=== PATIENT | male | born 1940 | race Caucasian/White ===

== ENCOUNTER → 2017-08-20 10:21 | Outpatient (CLI) | payer MEDICARE, SELFPAY ==
[2017-08-20 14:33] LABS: Protein, Urine (Random) 30.8 mg/dL (<11.9); Protein:Creat Ratio 285 mg/g CRE (0-200)
== END ==
PROVIDERS: Family Provider Family Medicine Geriatric Medicine; PCP Family Medicine Geriatric Medicine; Visit Provider Internal Medicine Nephrology
DX: E11.9 Type 2 diabetes mellitus without complications (principal)
CPT/HCPCS: 82570; 84156

== ENCOUNTER → 2017-10-22 11:50 | Outpatient (CLI) | payer MEDICARE, SELFPAY ==
[2017-10-22 13:13] LABS: Absolute Neutrophil Count 7.2 X10^3/uL (2.0-7.7); Basophil# 0.02 X10^3/uL; Basophil% 0.2 % (0-1); Eosinophil# 0.03 X10^3/uL; Eosinophils% 0.3 % (0-5); Hematocrit 49.8 % (40-54); Hemoglobin 16.4 g/dl (13.0-16.5); Lymphocyte % 12.2 % (19-41); Mean Corp Hgb Conc 32.9 g/gl (32-36); Mean Corpuscular Hgb 32.7 pg (27.0-32.0); Mean Corpuscular Volume 99.4 fL (80-94); Mean Platelet Vol. 11.2 fl (6.2-12.0); Monocyte# 0.66 X10^3/uL; Monocyte% 7.3 % (0-10); Neutrophil # 7.16 X10^3/uL (2.7-7.7); Neutrophil % 79.8 % (47-70); Platelet Count 141 K/mm3 (150-450); RBC Distribution Width CV 16.3 % (11.6-14.6); RBC Distribution Width SD 58.4 fl (35.1-43.9); Red Blood Count 5.01 M/mm3 (4.6-6.2)
[2017-10-22 13:14] LABS: POSITIVE COUNT NO; POSITIVE DIFFERENTIAL NO; POSITIVE MORPHOLOGY NO
[2017-10-22 13:46] LABS: Vitamin D,25 Hydroxy 42.9 ng/mL (29.95-100.01)
[2017-10-22 13:53] LABS: ALB/GLOB Ratio 0.8 RATIO (0.9-2.4); AST(SGOT) 25 U/L (15-37); Alanine Aminotransfer ALT/SGPT 29 U/L (16-61); Albumin, Serum 3.4 g/dL (3.2-5.0); Alkaline Phosphatase 102 U/L (45-117); Anion Gap 9 (5-15); BUN 26 mg/dL (7-18); BUN/Creat Ratio 17.1 RATIO (10-20); Calcium,Total 8.9 mg/dL (8.5-10.1); Chloride 94 mmol/L (98-107); Creatinine, Serum 1.52 mg/dL (0.70-1.30); EST Glomerular Filtration Rate 48 mL/min (>60); Est Glom Filt Rate - Afr Amer 57 mL/min (>60); Glucose 199 mg/dL (74-106); Potassium 4.7 mmol/L (3.5-5.1); Protein, Total 7.4 g/dL (6.4-8.2); Sodium Level 133 mmol/L (136-145)
== END ==
PROVIDERS: Family Provider Family Medicine Geriatric Medicine; PCP Family Medicine Geriatric Medicine; Visit Provider Family Medicine Geriatric Medicine
DX: E11.9 Type 2 diabetes mellitus without complications (principal); I10 Essential (primary) hypertension; E55.9 Vitamin D deficiency, unspecified; E23.6 Other disorders of pituitary gland
CPT/HCPCS: 36415; 80053; 82306; 84403; 84443; 85025

== ENCOUNTER → 2018-01-28 11:12 | Outpatient (CLI) | payer MEDICARE, SELFPAY ==
[2018-01-28 12:32] LABS: Absolute Lymphocyte Count 1.13 X10^3/ul (0.83-4.51); Basophil# 0.01 X10^3/uL; Basophil% 0.2 % (0-1); Eosinophil# 0.03 X10^3/uL; Eosinophils% 0.5 % (0-5); Hematocrit 48.1 % (40-54); Lymphocyte # 1.13 X10^3/ul (4.0); Mean Corp Hgb Conc 33.3 g/gl (32-36); Mean Corpuscular Hgb 33.4 pg (27.0-32.0); Mean Corpuscular Volume 100.4 fL (80-94); Mean Platelet Vol. 10.7 fl (6.2-12.0); Monocyte# 0.43 X10^3/uL; Monocyte% 6.5 % (0-10); Neutrophil # 5.04 X10^3/uL (2.7-7.7); Neutrophil % 75.6 % (47-70); Platelet Count 95 K/mm3 (150-450); RBC Distribution Width CV 14.1 % (11.6-14.6); RBC Distribution Width SD 51.9 fl (35.1-43.9); Red Blood Count 4.79 M/mm3 (4.6-6.2); White Blood Count 6.7 K/mm3 (4.4-11.0)
[2018-01-28 12:36] LABS: POSITIVE COUNT NO; POSITIVE DIFFERENTIAL NO; POSITIVE MORPHOLOGY NO
[2018-01-28 12:54] LABS: Vitamin D,25 Hydroxy 27.9 ng/mL (29.95-100.01)
[2018-01-28 13:17] LABS: ALB/GLOB Ratio 0.8 RATIO (0.9-2.4); AST(SGOT) 24 U/L (15-37); Alanine Aminotransfer ALT/SGPT 25 U/L (16-61); Albumin, Serum 3.3 g/dL (3.2-5.0); Alkaline Phosphatase 104 U/L (45-117); Anion Gap 9 (5-15); BUN 27 mg/dL (7-18); Calcium,Total 8.8 mg/dL (8.5-10.1); Chloride 95 mmol/L (98-107); Creatinine, Serum 1.42 mg/dL (0.70-1.30); EST Glomerular Filtration Rate 51 mL/min (>60); Est Glom Filt Rate - Afr Amer 62 mL/min (>60); Globulin 4.3 g/dL (2.2-4.2); Glucose 246 mg/dL (74-106); Potassium 4.5 mmol/L (3.5-5.1); Protein, Total 7.6 g/dL (6.4-8.2); Sodium Level 131 mmol/L (136-145)
== END ==
PROVIDERS: Family Provider Family Medicine Geriatric Medicine; PCP Family Medicine Geriatric Medicine; Visit Provider Family Medicine Geriatric Medicine
DX: E11.9 Type 2 diabetes mellitus without complications (principal); E55.9 Vitamin D deficiency, unspecified; I10 Essential (primary) hypertension; E23.6 Other disorders of pituitary gland
CPT/HCPCS: 36415; 80053; 82306; 84403; 84443; 85025

== ENCOUNTER → 2018-04-13 10:57 | Outpatient (CLI) | payer MEDICARE, SELFPAY ==
[2018-04-13 12:47] LABS: Albumin, Serum 3.5 g/dL (3.2-5.0); BUN 23 mg/dL (7-18); BUN/Creat Ratio 15.2 RATIO (10-20); Calcium,Total 8.9 mg/dL (8.5-10.1); Chloride 94 mmol/L (98-107); Creatinine, Serum 1.51 mg/dL (0.70-1.30); EST Glomerular Filtration Rate 48 mL/min (>60); Est Glom Filt Rate - Afr Amer 58 mL/min (>60); Glucose 229 mg/dL (74-106); Phosphorus 2.3 mg/dL (2.5-4.9); Potassium 4.4 mmol/L (3.5-5.1); Sodium Level 131 mmol/L (136-145)
== END ==
PROVIDERS: Family Provider Family Medicine Geriatric Medicine; PCP Family Medicine Geriatric Medicine; Visit Provider Internal Medicine Nephrology
DX: N18.3 Chronic kidney disease, stage 3 (moderate) (principal)
CPT/HCPCS: 36415; 80069

== ENCOUNTER → 2018-05-12 12:02 | Outpatient (CLI) | payer MEDICARE, SELFPAY ==
[2018-05-12 13:11] LABS: Absolute Neutrophil Count 5.4 X10^3/uL (2.0-7.7); Basophil# 0.02 X10^3/uL; Basophil% 0.3 % (0-1); Eosinophil# 0.01 X10^3/uL; Eosinophils% 0.1 % (0-5); Hematocrit 47.4 % (40-54); Hemoglobin 15.6 g/dl (13.0-16.5); Mean Corp Hgb Conc 32.9 g/gl (32-36); Mean Corpuscular Hgb 33.2 pg (27.0-32.0); Mean Corpuscular Volume 100.9 fL (80-94); Mean Platelet Vol. 10.6 fl (6.2-12.0); Monocyte# 0.45 X10^3/uL; Monocyte% 6.2 % (0-10); Neutrophil # 5.43 X10^3/uL (2.7-7.7); Neutrophil % 75.3 % (47-70); Platelet Count 99 K/mm3 (150-450); RBC Distribution Width CV 14.2 % (11.6-14.6); White Blood Count 7.2 K/mm3 (4.4-11.0)
[2018-05-12 13:14] LABS: POSITIVE COUNT NO; POSITIVE DIFFERENTIAL NO; POSITIVE MORPHOLOGY NO
[2018-05-12 13:33] LABS: ALB/GLOB Ratio 0.9 RATIO (0.9-2.4); AST(SGOT) 20 U/L (15-37); Alanine Aminotransfer ALT/SGPT 25 U/L (16-61); Albumin, Serum 3.5 g/dL (3.2-5.0); Alkaline Phosphatase 100 U/L (45-117); Anion Gap 8 (5-15); BUN 21 mg/dL (7-18); Calcium,Total 8.7 mg/dL (8.5-10.1); Chloride 97 mmol/L (98-107); EST Glomerular Filtration Rate 52 mL/min (>60); Est Glom Filt Rate - Afr Amer 63 mL/min (>60); Globulin 3.9 g/dL (2.2-4.2); Glucose 203 mg/dL (74-106); Potassium 4.3 mmol/L (3.5-5.1); Protein, Total 7.4 g/dL (6.4-8.2); Sodium Level 135 mmol/L (136-145); Thyroid Stim Hormone (TSH) 2.55 uIU/mL (0.358-3.74)
[2018-05-12 13:36] LABS: Vitamin D,25 Hydroxy 35.3 ng/mL (29.95-100.01)
== END ==
PROVIDERS: Family Provider Family Medicine Geriatric Medicine; PCP Family Medicine Geriatric Medicine; Visit Provider Family Medicine Geriatric Medicine
DX: E11.9 Type 2 diabetes mellitus without complications (principal); E55.9 Vitamin D deficiency, unspecified
CPT/HCPCS: 36415; 80053; 82306; 84403; 84443; 85025

== ENCOUNTER → 2018-06-17 14:14 | Outpatient (CLI) | payer MEDICARE, SELFPAY ==
[2018-06-17 16:10] LABS: Protein, Urine (Random) 29.2 mg/dL (<11.9); Protein:Creat Ratio 265 mg/g CRE (0-200)
--- OUTSIDE RECORDS SUMMARY | 2018-08-03 19:06 | XMS RPT_ITS ---
:1940 Author Organization OHIP Care Team Providers Name Role Phone Chicho, Lane [facility] Unavailable Kasandra Elizabeth Attending Unavailable Chicho, Lane [facility] Unavailable Kasandra Elizabeth Attending Unavailable Chicho, Lane Chi Attending Unavailable Chicho, Lane [facility] Unavailable Chicho, Lane Chi Attending Unavailable Chicho, Lane [facility] Unavailable Chicho, Lane [facility] Unavailable Kasandra Elizabeth Attending Unavailable Chicho, Lane Chi Attending Unavailable Chicho, Lane [facility] Unavailable Glenn Kasandra Attending Unavailable Chicho, Lane [facility] Unavailable PROBLEMS PROBLEMS DATE TYPE CONDITION / CODE ATTENDING STATUS SOURCE 01/28/2018 Unknown 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 mg/dL Normal UR CREAT 110.00 LAB L501.1930 <11.9 mg/dL High 29.2 PROTEIN,UR.R AN. LAB L501.1940 0-200 mg/g CRE High PROT:CRE 265 RATIO Performed By: #### L501.0900 #### [facility] [address] [place], [address] CBC W/DIFF, AUTOMATED Collected: 05/12/2018 Status: F Source: [place] 12:04 PM [facility] REPOSITORY TYPE CODE TESTS RESULT OUT OF RANGE REFERENCE UNITS LAB L100.1000 4.4-11.0 K/mm3 Normal WBC 7.2 LAB L100.1200 4.6-6.2 M/mm3 Normal RBC 4.70 LAB L100.1300 13.0-16.5 g/dl Normal HGB 15.6 LAB L100.1400 40-54 % Normal HCT 47.4 LAB L100.1500 80-94 fL High MCV 100.9 LAB L100.1600 27.0-32.0 pg High MCH 33.2 LAB L100.1700 32-36 g/gl Normal MCHC 32.9 LAB L100.1810 11.6-14.6 % Normal RDW CV 14.2 LAB L100.1820 35.1-43.9 fl High RDW SD 52.0 LAB L100.1900 150-450 K/mm3 Low PLT 99 LAB L100.2000 6.2-12.0 fl Normal MPV 10.6 LAB L100.2100 47-70 % High NEUT% 75.3 LAB L100.2200 19-41 % Low LY% 18.0 LAB L100.2300 0-10 % Normal MONO% 6.2 LAB L100.2400 0-5 % Normal EO% 0.1 LAB L100.2500 0-1 % Normal BASO% 0.3 LAB L100.2550 0.0-0.9 % Normal IM GRAN % 0.100 Result Comment: IG% - Immature Granulocytes (promyelocytes, myelocytes and metamyelocytes) > 1% indicates that a LEFT SHIFT is Present. LAB L100.2620 2.0-7.7 X10 3/uL Normal Absolute Neut 5.4 LAB L100.2720 0.83-4.51 X10 3/ul Normal Absolute Lymph 1.30 Performed By: #### L100.0100 #### [facility] [address] [place], [address] COMPREHENSIVE METABOLIC Collected: 05/12/2018 Status: F Source: [place] [facility] 12:04 PM [facility] REPOSITORY TYPE CODE TESTS RESULT OUT OF RANGE REFERENCE UNITS LAB L501.0100 74-106 mg/dL High GLU 203 Result Comment: Glucose result greater than or equal to 200 mg/dL suggests DIABETES MELLITUS per A.D.A. criteria. Please note revised GLUCOSE reference range effective 2017. LAB L501.1000 7-18 mg/dL High BUN 21 LAB L501.1100 0.70-1.30 mg/dL High CREAT,SERUM 1.40 Result Comment: The validity of the calculated GFR AND GFRAA in patients over 70 years has not been determined. Clinical correlation is essential. LAB L501.1110 >60 mL/min Low EST GFR 52 Result Comment: Non- GFR Calc LAB L501.1115 >60 mL/min Normal EST GFR - AA 63 Result Comment: GFR Calc LAB L501.1300 10-20 RATIO Normal BUN/CRE 15.0 LAB L501.1500 6.4-8.2 g/dL T Normal PROT 7.4 LAB L501.1800 3.2-5.0 g/dL Normal ALB 3.5 LAB L501.1950 2.2-4.2 g/dL Normal GLOB 3.9 LAB L501.2000 0.9-2.4 RATIO Normal A/G 0.9 LAB L501.2200 8.5-10.1 mg/dL CA Normal 8.7 LAB L501.4100 15-37 U/L Normal AST 20 LAB L501.4305 45-117 U/L Normal ALK P 100 LAB L501.4405 16-61 U/L Normal ALT 25 LAB L501.4600 0.20-1.00 mg/dL T Normal BILI 0.70 LAB L501.5300 136-145 mmol/L Low NA 135 LAB L501.5600 3.5-5.1 mmol/L K Normal 4.3 LAB L501.5900 98-107 mmol/L Low CL 97 LAB L501.6100 21.0-32.0 mmol/L Normal CO2 30.0 LAB L501.6200 5-15 Normal GAP 8 Performed By: #### L500.4050, L501.9520 #### [facility] [address] [place], [address] THYROID STIM HORMONE Collected: 05/12/2018 Status: F Source: MOBILE (TSH) 12:04 PM [facility] REPOSITORY TYPE CODE TESTS RESULT OUT OF RANGE REFERENCE UNITS LAB L501.9520 0.358-3.74 uIU/mL Normal TSH 2.55 Performed By: #### L500.4050, L501.9520 #### [facility] [address] [place], [address] VITAMIN D,25 HYDROXY Collected: 05/12/2018 Status: F Source: [place] 12:04 [facility]POSITORY TYPE CODE TESTS RESULT OUT OF RANGE REFERENCE UNITS LAB L506.1000 29.95-100.01 ng/mL Normal Vitamin D 35.3 25-OH Result Comment: Vitamin D 25(OH) Status Range Deficiency <20 ng/mL (50nmol/L) Insuffciency 20 - 30 ng/mL (50 - 75 nmol/L) Sufficiency 30 - 100 ng/mL (75 - 250 nmol/L) Toxicity >100 ng/mL (>250 nmol/L) Performed By: #### L506.1000, L509.3000 #### [facility] [address] [place], [place], [address] TESTOSTERONE, SERUM TOTAL Collected: 05/12/2018 Status: F Source: [place] 12:04 PM [facility] REPOSITORY TYPE CODE TESTS RESULT OUT OF REFERENCE UNITS RANGE LAB L509.3000 ng/dL Testosterone Normal 886.53 Result Comment: NORMAL REFERENCE RANGES MALE AGE <50 123.06 - 813.86 ng/dL MALE AGE >50 89.98 - 780.10 ng/dL FEMALE PREMENOPAUSE AGE 21 - 60 9.01 - 47.94 ng/dL FEMALE POSTMENOPAUSE AGE 45 - 89 <7.00 - 45.62 ng/dL REFERENCE RANGE AND METHODOLOGY CHANGED 06/25/2017 Performed By: #### L506.1000, L509.3000 #### [facility] [address] [place], [address] RENAL PROFILE Collected: 04/13/2018 Status: F Source: [place] 10:58 AM [facility] REPOSITORY TYPE CODE TESTS RESULT OUT OF RANGE REFERENCE UNITS LAB L501.0100 74-106 mg/dL High GLU 229 Result Comment: Glucose result greater than or equal to 200 mg/dL suggests DIABETES MELLITUS per A.D.A. criteria. Please note revised GLUCOSE reference range effective 2017. LAB L501.1000 7-18 mg/dL High BUN 23 LAB L501.1100 0.70-1.30 mg/dL High CREAT,SERUM 1.51 Result Comment: The validity of the calculated GFR AND GFRAA in patients over 70 years has not been determined. Clinical correlation is essential. LAB L501.1110 >60 mL/min Low EST GFR 48 Result Comment: Non- GFR Calc LAB L501.1115 >60 mL/min Low EST GFR - AA 58 Result Comment: GFR Calc LAB L501.1300 10-20 RATIO Normal BUN/CRE 15.2 LAB L501.1800 3.2-5.0 g/dL Normal ALB 3.5 LAB L501.2200 8.5-10.1 mg/dL CA Normal 8.9 LAB L501.2300 2.5-4.9 mg/dL Low PHOS 2.3 LAB L501.5300 136-145 mmol/L Low NA 131 LAB L501.5600 3.5-5.1 mmol/L K Normal 4.4 LAB L501.5900 98-107 mmol/L Low CL 94 LAB L501.6100 21.0-32.0 mmol/L Normal CO2 29.0 Performed By: #### L500.3600 #### [facility] [address] [place], [address] CBC W/DIFF, AUTOMATED Collected: 01/28/2018 Status: F Source: [place] 11:14 AM [facility] REPOSITORY TYPE CODE TESTS RESULT OUT OF RANGE REFERENCE UNITS LAB L100.1000 4.4-11.0 K/mm3 Normal WBC 6.7 LAB L100.1200 4.6-6.2 M/mm3 Normal RBC 4.79 LAB L100.1300 13.0-16.5 g/dl Normal HGB 16.0 LAB L100.1400 40-54 % Normal HCT 48.1 LAB L100.1500 80-94 fL High MCV 100.4 LAB L100.1600 27.0-32.0 pg High MCH 33.4 LAB L100.1700 32-36 g/gl Normal MCHC 33.3 LAB L100.1810 11.6-14.6 % Normal RDW CV 14.1 LAB L100.1820 35.1-43.9 fl High RDW SD 51.9 LAB L100.1900 150-450 K/mm3 Low PLT 95 LAB L100.2000 6.2-12.0 fl Normal MPV 10.7 LAB L100.2100 47-70 % High NEUT% 75.6 LAB L100.2200 19-41 % Low LY% 17.0 LAB L100.2300 0-10 % Normal MONO% 6.5 LAB L100.2400 0-5 % Normal EO% 0.5 LAB L100.2500 0-1 % Normal BASO% 0.2 LAB L100.2550 0.0-0.9 % Normal IM GRAN % 0.200 Result Comment: IG% - Immature Granulocytes (promyelocytes, myelocytes and metamyelocytes) > 1% indicates that a LEFT SHIFT is Present. LAB L100.2620 2.0-7.7 X10 3/uL Normal Absolute Neut 5.0 LAB L100.2720 0.83-4.51 X10 3/ul Normal Absolute Lymph 1.13 Performed By: #### L100.0100 #### [facility] [address] [place], [address] VITAMIN D,25 HYDROXY Collected: 01/28/2018 Status: F Source: [place] 11:14 AM [facility] REPOSITORY TYPE CODE TESTS RESULT OUT OF REFERENCE UNITS RANGE LAB L506.1000 29.95-100.01 ng/mL Low Vitamin D 27.9 25-OH Result Comment: Vitamin D 25(OH) Status Range Deficiency <20 ng/mL (50nmol/L) Insuffciency 20 - 30 ng/mL (50 - 75 nmol/L) Sufficiency 30 - 100 ng/mL (75 - 250 nmol/L) Toxicity >100 ng/mL (>250 nmol/L) Performed By: #### L506.1000, L509.3000 #### [facility] [address] [place], [address] TESTOSTERONE, SERUM TOTAL Collected: 01/28/2018 Status: F Source: MOBILE 11:14 AM [facility] REPOSITORY TYPE CODE TESTS RESULT OUT OF REFERENCE UNITS RANGE LAB L509.3000 ng/dL Testosterone Normal 656.26 Result Comment: NORMAL REFERENCE RANGES MALE AGE <50 123.06 - 813.86 ng/dL MALE AGE >50 89.98 - 780.10 ng/dL FEMALE PREMENOPAUSE AGE 21 - 60 9.01 - 47.94 ng/dL FEMALE POSTMENOPAUSE AGE 45 - 89 <7.00 - 45.62 ng/dL REFERENCE RANGE AND METHODOLOGY CHANGED 06/25/2017 Performed By: #### L506.1000, L509.3000 #### [facility] [address] [place], [address] COMPREHENSIVE METABOLIC Collected: 01/28/2018 Status: F Source: [facility] 11:14 AM [facility] REPOSITORY TYPE CODE TESTS RESULT OUT OF RANGE REFERENCE UNITS LAB L501.0100 74-106 mg/dL High GLU 246 Result Comment: Glucose result greater than or equal to 200 mg/dL suggests DIABETES MELLITUS per A.D.A. criteria. Please note revised GLUCOSE reference range effective 2017. LAB L501.1000 7-18 mg/dL High BUN 27 LAB L501.1100 0.70-1.30 mg/dL High CREAT,SERUM 1.42 Result Comment: The validity of the calculated GFR AND GFRAA in patients over 70 years has not been determined. Clinical correlation is essential. LAB L501.1110 >60 mL/min Low EST GFR 51 Result Comment: Non- GFR Calc LAB L501.1115 >60 mL/min Normal EST GFR - AA 62 Result Comment: GFR Calc LAB L501.1300 10-20 RATIO Normal BUN/CRE 19.0 LAB L501.1500 6.4-8.2 g/dL T Normal PROT 7.6 LAB L501.1800 3.2-5.0 g/dL Normal ALB 3.3 LAB L501.1950 2.2-4.2 g/dL High GLOB 4.3 LAB L501.2000 0.9-2.4 RATIO Low A/G 0.8 LAB L501.2200 8.5-10.1 mg/dL CA Normal 8.8 LAB L501.4100 15-37 U/L Normal AST 24 Result Comment: Moderate Hemolysis, Result may be falsely increased. LAB L501.4305 45-117 U/L Normal ALK P 104 LAB L501.4405 16-61 U/L Normal ALT 25 LAB L501.4600 0.20-1.00 mg/dL Normal T BILI 0.70 LAB L501.5300 136-145 mmol/L Low NA 131 LAB L501.5600 3.5-5.1 mmol/L Normal K 4.5 Result Comment: Moderate Hemolysis, Result may be falsely increased. LAB L501.5900 98-107 mmol/L Low CL 95 LAB L501.6100 21.0-32.0 mmol/L Normal CO2 27.0 LAB L501.6200 5-15 Normal GAP 9 Performed By: #### L500.4050, L501.9520 #### [facility] [address] [place], [place], [address] THYROID STIM HORMONE Collected: 01/28/2018 Status: F Source: [place] (TSH) 11:14 AM [facility] REPOSITORY TYPE CODE TESTS RESULT OUT OF RANGE REFERENCE UNITS LAB L501.9520 0.358-3.74 uIU/mL Normal TSH 2.20 Performed By: #### L500.4050, L501.9520 #### [facility] [address] [place], [address] CBC W/DIFF, AUTOMATED Collected: 10/22/2017 Status: F Source: [place] 11:59 AM [facility] REPOSITORY TYPE CODE TESTS RESULT OUT OF RANGE REFERENCE UNITS LAB L100.1000 4.4-11.0 K/mm3 Normal WBC 9.0 LAB L100.1200 4.6-6.2 M/mm3 Normal RBC 5.01 LAB L100.1300 13.0-16.5 g/dl Normal HGB 16.4 LAB L100.1400 40-54 % Normal HCT 49.8 LAB L100.1500 80-94 fL High MCV 99.4 LAB L100.1600 27.0-32.0 pg High MCH 32.7 LAB L100.1700 32-36 g/gl Normal MCHC 32.9 LAB L100.1810 11.6-14.6 % High RDW CV 16.3 LAB L100.1820 35.1-43.9 fl High RDW SD 58.4 LAB L100.1900 150-450 K/mm3 Low PLT 141 LAB L100.2000 6.2-12.0 fl Normal MPV 11.2 LAB L100.2100 47-70 % High NEUT% 79.8 LAB L100.2200 19-41 % Low LY% 12.2 LAB L100.2300 0-10 % Normal MONO% 7.3 LAB L100.2400 0-5 % Normal EO% 0.3 LAB L100.2500 0-1 % Normal BASO% 0.2 LAB L100.2550 0.0-0.9 % Normal IM GRAN % 0.200 Result Comment: IG% - Immature Granulocytes (promyelocytes, myelocytes and metamyelocytes) > 1% indicates that a LEFT SHIFT is Present. LAB L100.2620 2.0-7.7 X10 3/uL Normal Absolute Neut 7.2 LAB L100.2720 0.83-4.51 X10 3/ul Normal Absolute Lymph 1.10 Performed By: #### L100.0100 #### [facility] [address] [facility] [place], [address] VITAMIN D,25 HYDROXY Collected: 10/22/2017 Status: F Source: [place] 11:59 AM [facility] REPOSITORY TYPE CODE TESTS RESULT OUT OF RANGE REFERENCE UNITS LAB L506.1000 29.95-100.01 ng/mL Normal Vitamin D 42.9 25-OH Result Comment: Vitamin D 25(OH) Status Range Deficiency <20 ng/mL (50nmol/L) Insuffciency 20 - 30 ng/mL (50 - 75 nmol/L) Sufficiency 30 - 100 ng/mL (75 - 250 nmol/L) Toxicity >100 ng/mL (>250 nmol/L) Performed By: #### L506.1000, L509.3000 #### [facility] [address] [place], [address] TESTOSTERONE, SERUM TOTAL Collected: 10/22/2017 Status: F Source: MOBILE 11:59 AM [facility] REPOSITORY TYPE CODE TESTS RESULT OUT OF REFERENCE UNITS RANGE LAB L509.3000 ng/dL Testosterone Normal 808.43 Result Comment: NORMAL REFERENCE RANGES MALE AGE <50 123.06 - 813.86 ng/dL MALE AGE >50 89.98 - 780.10 ng/dL FEMALE PREMENOPAUSE AGE 21 - 60 9.01 - 47.94 ng/dL FEMALE POSTMENOPAUSE AGE 45 - 89 <7.00 - 45.62 ng/dL REFERENCE RANGE AND METHODOLOGY CHANGED 06/25/2017 Performed By: #### L506.1000, L509.3000 #### [facility] [address] [place], [address] COMPREHENSIVE METABOLIC Collected: 10/22/2017 Status: F Source: [facility] 11:59 AM [facility] REPOSITORY TYPE CODE TESTS RESULT OUT OF RANGE REFERENCE UNITS LAB L501.0100 74-106 mg/dL High GLU 199 Result Comment: Fasting Glucose result greater than or equal to 126 mg/dL suggests DIABETES MELLITUS per A.D.A. criteria. Please note revised GLUCOSE reference range effective 2017. LAB L501.1000 7-18 mg/dL High BUN 26 LAB L501.1100 0.70-1.30 mg/dL High CREAT,SERUM 1.52 Result Comment: The validity of the calculated GFR AND GFRAA in patients over 70 years has not been determined. Clinical correlation is essential. LAB L501.1110 >60 mL/min Low EST GFR 48 Result Comment: Non- GFR Calc LAB L501.1115 >60 mL/min Low EST GFR - AA 57 Result Comment: GFR Calc LAB L501.1300 10-20 RATIO Normal BUN/CRE 17.1 LAB L501.1500 6.4-8.2 g/dL T Normal PROT 7.4 LAB L501.1800 3.2-5.0 g/dL Normal ALB 3.4 LAB L501.1950 2.2-4.2 g/dL Normal GLOB 4.0 LAB L501.2000 0.9-2.4 RATIO Low A/G 0.8 LAB L501.2200 8.5-10.1 mg/dL CA Normal 8.9 LAB L501.4100 15-37 U/L Normal AST 25 Result Comment: Slight Hemolysis, Result may be falsely increased. LAB L501.4305 45-117 U/L Normal ALK P 102 LAB L501.4405 16-61 U/L Normal ALT 29 LAB L501.4600 0.20-1.00 mg/dL Normal T BILI 0.60 LAB L501.5300 136-145 mmol/L Low NA 133 LAB L501.5600 3.5-5.1 mmol/L Normal K 4.7 Result Comment: Slight Hemolysis, Result may be falsely increased. LAB L501.5900 98-107 mmol/L Low CL 94 LAB L501.6100 21.0-32.0 mmol/L Normal CO2 30.0 LAB L501.6200 5-15 Normal GAP 9 Performed By: #### L500.4050, L501.9520 #### [facility] [address] [place], [place], [address] THYROID STIM HORMONE Collected: 10/22/2017 Status: F Source: [place] (TSH) 11:59 AM [facility] REPOSITORY TYPE CODE TESTS RESULT OUT OF RANGE REFERENCE UNITS LAB L501.9520 0.358-3.74 uIU/mL Normal TSH 3.70 Performed By: #### L500.4050, L501.9520 #### [facility] [address] [place], [place], [address] PROTEIN+CREATININE Collected: Status: F Source: [place] RATIO,URINE 08/20/2017 10:24 AM [facility] REPOSITORY TYPE CODE TESTS RESULT OUT OF RANGE REFERENCE UNITS LAB L501.1200 NO RANGE EST. mg/dL Normal UR CREAT 108.00 LAB L501.1930 <11.9 mg/dL High 30.8 PROTEIN,UR.R AN. LAB L501.1940 0-200 mg/g CRE High PROT:CRE 285 RATIO Performed By: #### L501.0900 #### [facility] [address] [place], [place], [address] ALLERGIES ALLERGIES No Allergies Records FoundENCOUNTERS ENCOUNTERS ADMIT/DISCHARGE ACCOUNT ADMITTING ENCOUNTER LOCATION SOURCE NUMBER CLASS 06/17/2018 [id number] Ambulatory [place] 8 [facility] ing:POLAB3 Repository 05/12/2018 [id number] Ambulatory [place] 9 [facility] ing:POLAB3 Repository 04/13/2018 [id number] Ambulatory [place] 9 [facility] ing:POLAB3 Repository 01/28/2018 [id number] Ambulatory [place] 8 [facility] ing:POLAB3 Repository 10/22/2017 [id number] Ambulatory [place] 8 [facility] ing:POLAB3 Repository 08/20/2017 [id number] Ambulatory [place] 1 [facility] ing:POLAB3 Repository 08/13/2017 [id number] Ambulatory [place] 3 [facility] ing:LAB.FUTUR Repository E PAYERS PAYERS ENCOUNTER GUARANTOR PAYER SUBSCRIBER SOURCE 06/17/2018 Evelyn Jang Primary Insurance:AETNA Evelyn L [place] [id number] MCRPolicy Number: [place]D[facility] [id number] [address]Xsg: Date:4631-94-01HU BOX Repository [id number] [place] [address] () [phone]: 06/17/2018 Secondary NOT GIVENUNK [place] Insurance:SELF PAY [facility] INSURANCEPolicy Number: Hospital Effective Repository Date:2018-06-17 05/12/2018 Evelyn Jang Primary Insurance:AETNA Evelyn L [place] [id number] MCRPolicy Number: BloughDOB: [facility] [id number] General Hospital [address]Xta: Date:7473-06-79AS BOX Repository [id number] [place] [address] ) [address]VK: 05/12/2018 Secondary NOT GIVENUNK [place] Insurance:SELF PAY Community INSURANCEPolicy Number: Hospital Effective Repository Date:2018-05-12 04/13/2018 Evelyn L Primary Insurance:AETNA Evelyn Jang [place] [id number] MCRPolicy Number: [place]DOB: [facility] [id number] [place] [address]Ymn: Date:5716-25-59RQ BOX Repository [id number] ELAINE () [phone]: 04/13/2018 Secondary NOT GIVENUNK [place] Insurance:SELF PAY Community INSURANCEPolicy Number: Hospital Effective Repository Date:2018-04-13 01/28/2018 Evelyn L Primary Insurance:AETNA Evelyn Jang [place] [id number] MCRPolicy Number: [place]DOB: [facility] south[facility]ell [id number] [facility] [place] [address]Qao: Date:8262-79-30ZS BOX Repository [id number] BAIRD () [phone]: 01/28/2018 Secondary NOT GIVENUNK [place] Insurance:SELF PAY Community INSURANCEPolicy Number: Hospital Effective Repository Date:2018-01-28 10/22/2017 Evelyn L Primary Insurance:AETNA Evelyn Jang [place] [id number] MCRPolicy Number: BloughDOB: [facility] [place]ell [id number] [place] [address]Imn: Date:5462-37-35RE BOX Repository [id number] BAIRD () [phone]: 10/22/2017 Secondary NOT GIVENUNK [place] Insurance:SELF PAY Community INSURANCEPolicy Number: Hospital Effective Repository Date:2017-10-22 08/20/2017 Evelyn L Primary Insurance:AETNA Evelyn Jang [place] [id number] MCRPolicy Number: [place]DOB: [facility] [id number] [facility] [place] [address]Byq: Date:2148-56-93HG BOX Repository [id number] BAIRD () [phone]: 08/20/2017 Secondary NOT GIVENUNK [place] Insurance:SELF PAY Community INSURANCEPolicy Number: Hospital Effective Repository Date:2017-08-20 08/13/2017 Evelyn aJng Primary Insurance:AETNA Evelyn Jang [place] MCRPolicy Number: GoodDOB: [facility]Exin[facility] [id number] General Hospital [address]Jhg: Date:1485-70-35WU BOX Repository [id number] ESTEFANI POON () [phone]: 08/13/2017 Secondary NOT GIVENUNK [place] Insurance:SELF PAY Community INSURANCEPolicy Number: Hospital Effective Repository Date:2017-08-13
== END ==
PROVIDERS: Family Provider Family Medicine Geriatric Medicine; PCP Family Medicine Geriatric Medicine; Visit Provider Internal Medicine Nephrology
DX: E11.9 Type 2 diabetes mellitus without complications (principal)
CPT/HCPCS: 82570; 84156

== ENCOUNTER → 2018-08-24 14:01 | Outpatient (CLI) | payer MEDICARE, SELFPAY ==
[2018-08-24 14:42] LABS: Absolute Lymphocyte Count 1.37 X10^3/ul (0.83-4.51); Absolute Neutrophil Count 6.3 X10^3/uL (2.0-7.7); Basophil# 0.02 X10^3/uL; Basophil% 0.2 % (0-1); Eosinophil# 0.04 X10^3/uL; Eosinophils% 0.5 % (0-5); Hematocrit 47.6 % (40-54); Hemoglobin 15.4 g/dl (13.0-16.5); Lymphocyte # 1.37 X10^3/ul (4.0); Lymphocyte % 16.5 % (19-41); Mean Corp Hgb Conc 32.4 g/gl (32-36); Mean Corpuscular Hgb 32.4 pg (27.0-32.0); Mean Corpuscular Volume 100.2 fL (80-94); Mean Platelet Vol. 11.2 fl (6.2-12.0); Monocyte# 0.53 X10^3/uL; Monocyte% 6.4 % (0-10); Neutrophil # 6.33 X10^3/uL (2.7-7.7); Neutrophil % 76.2 % (47-70); Platelet Count 117 K/mm3 (150-450); RBC Distribution Width CV 14.9 % (11.6-14.6); RBC Distribution Width SD 54.2 fl (35.1-43.9); Red Blood Count 4.75 M/mm3 (4.6-6.2); White Blood Count 8.3 K/mm3 (4.4-11.0)
[2018-08-24 14:53] LABS: Vitamin D,25 Hydroxy 25.5 ng/mL (29.95-100.01)
[2018-08-24 14:55] LABS: POSITIVE COUNT NO; POSITIVE DIFFERENTIAL NO; POSITIVE MORPHOLOGY NO
[2018-08-24 14:59] LABS: ALB/GLOB Ratio 0.9 RATIO (0.9-2.4); AST(SGOT) 27 U/L (15-37); Alanine Aminotransfer ALT/SGPT 29 U/L (16-61); Albumin, Serum 3.7 g/dL (3.2-5.0); Alkaline Phosphatase 99 U/L (45-117); Anion Gap 7 (5-15); BUN 20 mg/dL (7-18); BUN/Creat Ratio 14.8 RATIO (10-20); Calcium,Total 8.8 mg/dL (8.5-10.1); Chloride 96 mmol/L (98-107); Creatinine, Serum 1.35 mg/dL (0.70-1.30); EST Glomerular Filtration Rate 54 mL/min (>60); Est Glom Filt Rate - Afr Amer 66 mL/min (>60); Globulin 3.9 g/dL (2.2-4.2); Glucose 107 mg/dL (74-106); Potassium 4.2 mmol/L (3.5-5.1); Protein, Total 7.6 g/dL (6.4-8.2); Sodium Level 130 mmol/L (136-145)
== END ==
PROVIDERS: Family Provider Family Medicine Geriatric Medicine; PCP Family Medicine Geriatric Medicine; Visit Provider Family Medicine Geriatric Medicine
DX: E11.9 Type 2 diabetes mellitus without complications (principal); I10 Essential (primary) hypertension; E55.9 Vitamin D deficiency, unspecified; E23.6 Other disorders of pituitary gland
CPT/HCPCS: 36415; 80053; 82306; 84403; 84443; 85025

== ENCOUNTER 2018-08-25 09:12 | Emergency (ER) | payer MEDICARE, SELFPAY ==
[2018-08-25 09:14] VITALS: BP 181/97; PULSE 88; RESP 16; TEMP 36.7; O2SAT 99; BMI 27.8
--- NOTE | 2018-08-25 09:29 | EKG12_ITS ---
Test Reason : CP Blood Pressure : / mmHG Vent. Rate : 089 BPM Atrial Rate : 089 BPM P-R Int : 178 ms QRS Dur : 088 ms QT Int : 348 ms P-R-T Axes : 000 -49 009 degrees QTc Int : 423 ms Sinus rhythm with frequent Premature ventricular complexes Left anterior fascicular block Cannot rule out Inferior infarct (masked by fascicular block?) , age undetermined Possible Anterolateral infarct , age undetermined Abnormal ECG Confirmed by RAUL ALLEN, CARLOS ([id number]), photographic editor BIB FRANCIS ([id number]) on 08/27/2018 1:24:45 PM Referred By: VIKASH Confirmed By:CARLOS CARTER MD
--- NOTE | 2018-08-25 09:29 | RAD_ITS ---
STUDY: X-RAY CHEST REASON FOR EXAM: Male, 78 years old. Rales in the left base. TECHNIQUE: PA and lateral views of the chest. COMPARISON: Comparison is made with prior study dated April 10, 2016. FINDINGS: EKG electrodes are seen. The lungs are clear and expanded. There is no demonstrated pleural abnormality. There is mild cardiac enlargement. Normal mediastinum and geovanna. Normal visualized pulmonary arteries. There is atherosclerotic calcification of the aortic arch with tortuosity. There are diffuse degenerative changes of the visualized thoracic spine. Normal visualized ribs, clavicles, and shoulders. There is no demonstrated abnormality of the visualized soft tissue structures of the upper abdomen. RAD/Chest PA and Lateral IMPRESSION: Mild cardiomegaly. Electronically Signed: Brayden Austin MD at 10:38 EST , Service support ,
[2018-08-25 09:52] LABS: Magnesium 2.2 mg/dL (1.6-2.6)
[2018-08-25 10:12] VITALS: BP 164/52; PULSE 91; O2SAT 99
--- NOTE | 2018-08-25 10:22 | ED.DCSUM_ITS ---
- ER Visit Summary Date of Service: 08/25/18 Chief Complaint: Patient presents with palpitations. He denies chest pain History of Present Illness: The patient is a 78 M who presents with palpitations. He states he feels skipped beats and irregular beats. He denies chest pain of any type. He denies dyspnea dyspnea with exertion. Denies orthopnea PND. He denies fever, chills night sweats. He denies heat or cold intolerance. He denies weight gain or weight loss. He denies leg pain, swelling discoloration. He has no history of PE or DVT. He states many years ago he had a stress test and cardiac catheterization by Dr. Farris. The cath was unremarkable to his knowledge. He is on no anticoagulants. He has no history of atrial fibrillation. Review of systems otherwise negative. He has history of diabetes and hypertension. He states he was seen by his primary care physician yesterday and had tubes of blood obtained. Physical Examination: Patient's vital signs remarkable for elevated blood pressure 181/97. He appears no distress. Head is atraumatic normocephalic. Pupils are equal round reactive. Extraocular muscles are intact. TMs are pearly white with landmarks noted. Nares patent with no drainage. Posterior pharynx without erythema or exudate. Uvula is midline. There is no dysphonia or dysphasia. Trachea is midline. There is no stridor with auscultation of the neck. Heart is a regular. There is no murmur. There is no gallop. Lungs reveal rales at the left base that did not clear with coughing. Rales at the right base did clear with coughing. Abdomen soft nontender with no palpable, pulsatile or abdominal bruit noted. Lower extremity reveals 2-3+ pitting edema with venous dermatitis. He reports his swelling is worse at night and improves after sleeping. He denies symptoms of claudication. Patient is alert and oriented ?3. Motor is 5 over 5. Sensory is intact. DTRs are symmetric with no clonus or Babinski sign. Cranial 2 through 12 are intact. Cerebellar testing is normal. Test Results: Blood work from yesterday was reviewed and is unremarkable. Magnesium was added which was normal at 2.2. Troponin was less than 0.015. Patient's testosterone level elevated. He informed that he is getting testosterone injections. Emergency Department Course and Treatment: Monitor, EKG, chest x-ray because of the rales left base and magnesium level and troponin. Reviewed labs from yesterday. Treatment Plan: Case discussed with Dr. Kenny. Patient was ordered a 24-hour Holter monitor. He is to call the office for an appointment. Disposition: Discharge to home with outpatient order for Holter monitor and follow-up with Dr. Farris his medical anthropologist Impression: Palpitations secondary to frequent ventricular premature beats and bigeminy This note was generated with Event[employer] dictation software. It may contain incorrect words, spelling, and punctuation that were not noted in review of the chart prior to signing ED Disposition - Plan for ED Patient: Disposition: Home or Assisted Living Referrals: Lane Valentino Chi, MD [Primary Care Provider] - Enrique Farris MD [STAFF PHYSICIAN] - Additional Instructions: Call Dr. Farris's office for appointment today.
[2018-08-25 10:30] VITALS: BP 164/52; PULSE 92; O2SAT 98
== END 2018-08-25 10:33 | disposition home or self-care (01) ==
PROVIDERS: Emergency Provider Emergency Medicine; Family Provider Family Medicine Geriatric Medicine; PCP Family Medicine Geriatric Medicine
DX: I49.40 Unspecified premature depolarization (principal); R00.8 Other abnormalities of heart beat; E11.9 Type 2 diabetes mellitus without complications; I10 Essential (primary) hypertension
CPT/HCPCS: 71046; 83735; 84484; 93005; 93225; 93226; 99285; A4216

== ENCOUNTER → 2018-08-25 11:01 | Outpatient (CLI) | payer MEDICARE, SELFPAY ==
[2018-08-25 09:14] VITALS: BMI 27.8
== END ==
PROVIDERS: Family Provider Family Medicine Geriatric Medicine; PCP Family Medicine Geriatric Medicine; Visit Provider Emergency Medicine
DX: I49.3 Ventricular premature depolarization (principal); R00.8 Other abnormalities of heart beat
CPT/HCPCS: 93226

== ENCOUNTER → 2018-09-10 12:49 | Outpatient (CLI) | payer MEDICARE, SELFPAY ==
[2018-09-02 08:43] VITALS: BMI 26.8
--- NOTE | 2018-09-10 12:51 | ECHOCS_ITS ---
Reason For Study: ARRHYTHMIA Procedure This was a 2D Doppler, Color Flow transthoracic echocardiogram. Contrast injection was performed. Exam performed in department. Left Ventricle Normal LV size. Left ventricular systolic function is normal. The estimated ejection fraction is 65 %. Unable to assess diastolic dysfunction due to arrhythmia. No regional wall motion abnormalities noted. Right Ventricle Normal RV size. Normal systolic function. Atria The left atrium is mildly enlarged. Normal right atrium. Mitral Valve Mitral valve not well visualized. Tricuspid Valve Normal tricuspid valve. Aortic Valve Normal aortic valve. Pulmonic Valve The pulmonic valve is not well visualized. Great Vessels Normal aortic root. The pulmonary artery is normal size. Normal inferior vena cava. Pericardium/Pleural No pericardial effusion. Medication 22 gauge I.V. with prn adaptor inserted into right arm. Diluted definity 4ml given slow IV push to enhance endocardial definition. MMode/2D Measurements & Calculations LVIDd: 5.4 cm IVSd: 0.99 cm Ao root diam: 3.2 cm LVIDs: 3.7 cm LVPWd: 1.0 cm RVDd: 3.4 cm FS: 32.5 % LAV(MOD-bp): 51.3 ml LA A4 area: 22.9 cm2 LA dimension(2D): 4.1 cm LAV(MOD-bp) Indexed: 24.2 ml/m2 LAV(MOD-sp2): 40.6 ml LAV(MOD-sp4): 64.8 ml RA A4 area: 18.2 cm2 Time Measurements MV dec time: 0.16 sec Doppler Measurements & Calculations MV E max wolf: 74.5 cm/sec Lat Peak E' Wolf: 8.4 cm/sec Med Peak E' Wolf: 6.3 cm/sec MV A max wolf: 52.1 cm/sec E/E' lat: 8.9 E/E' med: 11.8 MV E/A: 1.4 Ao V2 max: 126.1 cm/sec AI max wolf: 381.6 cm/sec LV V1 max: 118.0 cm/sec Ao max P.4 mmHg AI max P.3 mmHg LV V1 max P.6 mmHg AI dec slope: 289.6 cm/sec2 AI P1/2t: 386.0 msec PA V2 max: 87.5 cm/sec TR max wolf: 250.0 cm/sec TR max P.0 mmHg Interpretation Summary Normal LV size. Left ventricular systolic function is normal. The estimated ejection fraction is 65 %. Unable to assess diastolic dysfunction due to arrhythmia. Contrast injection was performed. Ordering Physician: Enrique Farris Referring Physician: GABBIE MADRIGAL CHI Performed By: Sara Abreu, NOEMI, RVT
== END ==
PROVIDERS: Family Provider Family Medicine Geriatric Medicine; PCP Family Medicine Geriatric Medicine; Referring Provider Internal Medicine Cardiovascular Disease; Visit Provider Internal Medicine Cardiovascular Disease
DX: R94.31 Abnormal electrocardiogram [ECG] [EKG] (principal)
CPT/HCPCS: 93306; Q9957; A4216; C8929

== ENCOUNTER → 2018-11-04 12:01 | Outpatient (CLI) | payer MEDICARE, SELFPAY ==
[2018-10-30 09:56] VITALS: BMI 26.9
[2018-11-04 13:01] LABS: ALB/GLOB Ratio 0.8 RATIO (0.9-2.4); AST(SGOT) 23 U/L (15-37); Alanine Aminotransfer ALT/SGPT 23 U/L (16-61); Albumin, Serum 3.2 g/dL (3.2-5.0); Alkaline Phosphatase 102 U/L (45-117); Anion Gap 8 (5-15); BUN 18 mg/dL (7-18); BUN/Creat Ratio 13.3 RATIO (10-20); Calcium,Total 8.9 mg/dL (8.5-10.1); Chloride 99 mmol/L (98-107); Creatinine, Serum 1.35 mg/dL (0.70-1.30); EST Glomerular Filtration Rate 54 mL/min (>60); Est Glom Filt Rate - Afr Amer 66 mL/min (>60); Globulin 4.1 g/dL (2.2-4.2); Glucose 201 mg/dL (74-106); Potassium 4.2 mmol/L (3.5-5.1); Protein, Total 7.3 g/dL (6.4-8.2); Sodium Level 135 mmol/L (136-145); Thyroid Stim Hormone (TSH) 1.89 uIU/mL (0.358-3.74)
[2018-11-04 14:31] LABS: Vitamin D,25 Hydroxy 24.6 ng/mL (29.95-100.01)
[2018-11-04 14:39] LABS: Absolute Lymphocyte Count 1.27 X10^3/ul (0.83-4.51); Absolute Neutrophil Count 8.4 X10^3/uL (2.0-7.7); Basophil# 0.02 X10^3/uL; Basophil% 0.2 % (0-1); Eosinophil# 0.01 X10^3/uL; Eosinophils% 0.1 % (0-5); Hematocrit 43.8 % (40-54); Hemoglobin 14.5 g/dl (13.0-16.5); Lymphocyte # 1.27 X10^3/ul (4.0); Lymphocyte % 12.5 % (19-41); Mean Corp Hgb Conc 33.1 g/gl (32-36); Mean Corpuscular Hgb 32.9 pg (27.0-32.0); Mean Corpuscular Volume 99.3 fL (80-94); Mean Platelet Vol. 10.2 fl (6.2-12.0); Monocyte# 0.49 X10^3/uL; Monocyte% 4.8 % (0-10); Neutrophil # 8.36 X10^3/uL (2.7-7.7); Neutrophil % 82.2 % (47-70); Platelet Count 174 K/mm3 (150-450); RBC Distribution Width CV 14.4 % (11.6-14.6); RBC Distribution Width SD 52.2 fl (35.1-43.9); Red Blood Count 4.41 M/mm3 (4.6-6.2); White Blood Count 10.2 K/mm3 (4.4-11.0)
[2018-11-04 14:43] LABS: POSITIVE COUNT NO; POSITIVE DIFFERENTIAL NO; POSITIVE MORPHOLOGY NO
== END ==
PROVIDERS: Family Provider Family Medicine Geriatric Medicine; PCP Family Medicine Geriatric Medicine; Visit Provider Family Medicine Geriatric Medicine
DX: E11.9 Type 2 diabetes mellitus without complications (principal); E55.9 Vitamin D deficiency, unspecified; E23.6 Other disorders of pituitary gland; I10 Essential (primary) hypertension
CPT/HCPCS: 36415; 80053; 82306; 84403; 84443; 85025

== ENCOUNTER → 2019-01-15 11:09 | Outpatient (CLI) | payer MEDICARE, SELFPAY ==
[2018-10-30 09:56] VITALS: BMI 26.9
--- NOTE | 2019-01-15 11:14 | VDLE_ITS ---
Reason For Study: Localized Edema RIGHT LEFT CFV is compressible, spontaneous, phasic, GSV is normal. competent and demonstrates normal CFV is compressible, spontaneous, phasic, augmentation. competent, and demonstrates normal Procedure augmentation. Exam performed in department. FV is compressible, spontaneous, phasic, A preliminary report was called and/or faxed competent and demonstrates normal to Dr. Valentino. augmentation. Order stated Bilateral LE Venous. Patient POP V is compressible, spontaneous, phasic, only wanted Left leg scanned because he has competent and demonstrates normal no issues with Right leg. augmentation. T/P Trunk is compressible. PTV is compressible. LT PerV is compressible. Patient unable to tolerate Lt FV distal compressions; relied on color doppler Lt PeroV not well visualized. Interpretation Summary There is no evidence of left lower extremity deep vein thrombosis. Left greater saphenous vein appears patent and compressible segmentally. Normal flow patterns right common femoral vein Ordering Physician: Lane Valentino Chi Referring Physician: Lane Valentino Chi Performed By: Mary Nair, NOEMI, RVT
--- NOTE | 2019-01-15 11:48 | RAD_ITS ---
STUDY: X-RAY - LEFT KNEE REASON FOR EXAM: Male, 78 years old. Soft tissue swelling following a recent fall. TECHNIQUE: 4 view(s) of the knee. COMPARISON: None. FINDINGS: Normal visualized distal femur. Normal visualized proximal tibia and fibula. Normal proximal tibiofibular articulation. There is moderate degenerative arthrosis of the medial femorotibial compartment with moderate joint space narrowing. Normal lateral femorotibial compartment. There is mild degenerative arthrosis of the patellofemoral articulation. There are atherosclerotic calcifications. RAD/Knee 4 or More Views IMPRESSION: Degenerative arthrosis. Small joint effusion. Electronically Signed: Brayden Austin, at 13:33 EDT , Service support ,
== END ==
PROVIDERS: Family Provider Family Medicine Geriatric Medicine; PCP Family Medicine Geriatric Medicine; Referring Provider Family Medicine Geriatric Medicine; Visit Provider Family Medicine Geriatric Medicine
DX: R60.0 Localized edema (principal); M25.569 Pain in unspecified knee
CPT/HCPCS: 73564; 93971

== ENCOUNTER → 2019-01-25 16:04 | Outpatient (CLI) | payer MEDICARE, SELFPAY ==
[2018-10-30 09:56] VITALS: BMI 26.9
--- NOTE | 2019-01-25 16:08 | MRI_ITS ---
HISTORY:left knee pain, fall 3 weeks agopain anterior knee MRI EXAMINATION OF THELeft KNEE COMPARISON: Radiographs of the left knee obtained on January 15, 2019. There was also a prior report dated January 03, 2012 however the prior images were unavailable TECHNIQUE: Coronal proton density, fat-suppressed T2 and thin section coronal T2, sagittal proton density and axial fat-suppressed T2 and sagittal fat-suppressed T2 # of images including paperwork:199 FINDINGS: Bones: There is no evidence of an acute fracture. Minimal marrow edema is seen involving the posterior medial tibial plateau. Slight cortical irregularity is seen at the posterior lateral tibial plateau with subtle sclerosis at the medial cortex of the proximal tibia epiphysis. This may be secondary to prior impaction fracture. There are small marginal osteophytes at the medial lateral compartments of the knee greatest at the medial compartment as well as the patellofemoral apartment. Enthesophyte at the insertion of the quadriceps and on the patella. Ligaments and tendons: The anterior cruciate ligament parallel Blumensaat's line. There is slight abnormal T2 signal seen within the posterior fibers suggesting a partial tear. The posterior cruciate ligament is intact Chronic partial tear involving the femoral attachment of the lateral collateral ligament. The biceps femoris tendon is intact Iliotibial band is intact The popliteus tendon is intact Thickening of the femoral attachment of the medial collateral ligament suggesting a chronic sprain The presence around his tendons are intact Extensor mechanism: The quadriceps tendon and the patellar tendon, the medial and lateral retinaculum are intact. Minimal edema is seen in the subtendinous tissue overlying the patellar tendon Knee joint: Minimal joint effusion. There is a trace amount of fluid within a popliteal cyst. Minimal edema is seen within Hoffa's fat pad Medial compartment: Grade 1-2 signal seen within the middle one third of the medial meniscus. This does extend to the anterior one third. In addition there is subtle irregularity seen involving the posterior root ligament attachment with a small radial tear. Thinning of the articular cartilage is seen at the posterior medial femoral condyle however no full-thickness losses noted Lateral compartment: No evidence of a meniscal tear. The articular cartilage is intact. Patellofemoral articulation: Partial-thickness articular cartilage loss involving the lateral facet of the patella seen on axial image 9 series 3 involving the superior half of the patella. There is also fissuring of the articular cartilage at the superior sulcus of the trochlea seen on axial image 15 series 3 MRI/Lower Ext Joint Only (Routine) IMPRESSION: Osteoarthritic changes Probable partial tear of the intra-cruciate ligament Suspect small chronic impaction fracture of the far medial tibial plateau Degenerative change of the middle one third of the medial meniscus There is a radial tear of the posterior one third Partial-thickness articular cartilage loss of the lateral facet of the patella with fissuring seen at the sulcus of the patella as discussed Minimal joint effusion at 1744 Reported and signed by: Rosario Sanderson DO Electronically Signed: Rosario Sanderson DO at 17:43 EDT Tel , Service support ,
== END ==
PROVIDERS: Family Provider Family Medicine Geriatric Medicine; PCP Family Medicine Geriatric Medicine; Referring Provider Family Medicine Geriatric Medicine; Visit Provider Family Medicine Geriatric Medicine
DX: M25.569 Pain in unspecified knee (principal)
CPT/HCPCS: 73721

== ENCOUNTER → 2019-04-12 09:39 | Outpatient (CLI) | payer MEDICARE, SELFPAY ==
[2019-02-03 10:47] VITALS: BMI 26.9
[2019-04-12 10:25] LABS: Protein, Urine (Random) 28.6 mg/dL (<11.9); Protein:Creat Ratio 247 mg/g CRE (0-200)
[2019-04-12 10:41] LABS: Albumin, Serum 3.6 g/dL (3.2-5.0); BUN 19 mg/dL (7-18); BUN/Creat Ratio 13.9 RATIO (10-20); Calcium,Total 9.3 mg/dL (8.5-10.1); Chloride 100 mmol/L (98-107); Creatinine, Serum 1.37 mg/dL (0.70-1.30); EST Glomerular Filtration Rate 53 mL/min (>60); Est Glom Filt Rate - Afr Amer 65 mL/min (>60); Glucose 84 mg/dL (74-106); Phosphorus 2.7 mg/dL (2.5-4.9); Potassium 4.3 mmol/L (3.5-5.1); Sodium Level 135 mmol/L (136-145)
[2019-04-12 10:49] LABS: PTHIN 40.4 pg/mL (18.4-80.1)
== END ==
PROVIDERS: Family Provider Family Medicine Geriatric Medicine; PCP Family Medicine Geriatric Medicine; Referring Provider Internal Medicine Nephrology; Visit Provider Internal Medicine Nephrology
DX: N18.3 Chronic kidney disease, stage 3 (moderate) (principal); E11.9 Type 2 diabetes mellitus without complications
CPT/HCPCS: 36415; 80069; 82570; 83970; 84156

== ENCOUNTER → 2019-05-06 12:11 | Outpatient (CLI) | payer MEDICARE, SELFPAY ==
[2019-02-03 10:47] VITALS: BMI 26.9
[2019-05-06 12:42] LABS: Absolute Lymphocyte Count 1.26 X10^3/uL (0.83-4.51); Absolute Neutrophil Count 6.4 X10^3/uL (2.0-7.7); Basophil# 0.03 X10^3/uL; Basophil% 0.4 % (0-1); Hemoglobin 16.2 g/dL (13.0-16.5); Lymphocyte # 1.26 X10^3/ul (4.0); Lymphocyte % 15.1 % (19-41); Mean Corp Hgb Conc 32.4 g/dL (32-36); Mean Corpuscular Hgb 32.5 pg (27.0-32.0); Mean Corpuscular Volume 100.4 fL (80-94); Mean Platelet Vol. 11.3 fl (6.2-12.0); Monocyte# 0.59 X10^3/uL; Monocyte% 7.1 % (0-10); NRBC Flagged by Analyzer 0 % (0-5); Neutrophil # 6.41 X10^3/uL (2.7-7.7); Neutrophil % 76.9 % (47-70); Platelet Count 120 K/mm3 (150-450); RBC Distribution Width SD 55.2 fl (35.1-43.9); Red Blood Count 4.98 M/mm3 (4.6-6.2); White Blood Count 8.3 K/mm3 (4.4-11.0)
[2019-05-06 12:56] LABS: Vitamin D,25 Hydroxy 33.4 ng/mL (29.95-100.01)
[2019-05-06 13:04] LABS: ALB/GLOB Ratio 0.9 RATIO (0.9-2.4); AST(SGOT) 23 U/L (15-37); Alanine Aminotransfer ALT/SGPT 19 U/L (16-61); Albumin, Serum 3.8 g/dL (3.2-5.0); Alkaline Phosphatase 101 U/L (45-117); Anion Gap 7 (5-15); BUN 22 mg/dL (7-18); BUN/Creat Ratio 14.1 RATIO (10-20); Calcium,Total 9.5 mg/dL (8.5-10.1); Chloride 99 mmol/L (98-107); Creatinine, Serum 1.56 mg/dL (0.70-1.30); EST Glomerular Filtration Rate 46 mL/min (>60); Est Glom Filt Rate - Afr Amer 56 mL/min (>60); Globulin 4.2 g/dL (2.2-4.2); Glucose 94 mg/dL (74-106); Potassium 4.5 mmol/L (3.5-5.1); Sodium Level 134 mmol/L (136-145); Thyroid Stim Hormone (TSH) 3.63 uIU/mL (0.358-3.74)
== END ==
PROVIDERS: Family Provider Family Medicine Geriatric Medicine; PCP Family Medicine Geriatric Medicine; Visit Provider Family Medicine Geriatric Medicine
DX: E11.9 Type 2 diabetes mellitus without complications (principal); E55.9 Vitamin D deficiency, unspecified; I10 Essential (primary) hypertension; E23.6 Other disorders of pituitary gland
CPT/HCPCS: 36415; 80053; 82306; 84403; 84443; 85025

== ENCOUNTER → 2019-11-11 10:45 | Outpatient (CLI) | payer MEDICARE, SELFPAY ==
[2019-02-03 10:47] VITALS: BMI 26.9
[2019-11-11 11:27] LABS: Absolute Lymphocyte Count 1.12 X10^3/uL (0.83-4.51); Basophil# 0.04 X10^3/uL; Basophil% 0.4 % (0-1); Eosinophil# 0.07 X10^3/uL; Eosinophils% 0.7 % (0-5); Hematocrit 50.1 % (40-54); Hemoglobin 15.9 g/dL (13.0-16.5); Lymphocyte # 1.12 X10^3/ul (4.0); Lymphocyte % 11.2 % (19-41); Mean Corp Hgb Conc 31.7 g/dL (32-36); Mean Corpuscular Hgb 32.9 pg (27.0-32.0); Mean Corpuscular Volume 103.5 fL (80-94); Mean Platelet Vol. 10.7 fl (6.2-12.0); Monocyte# 0.67 X10^3/uL; Monocyte% 6.7 % (0-10); NRBC Flagged by Analyzer 0 % (0-5); Neutrophil # 8.04 X10^3/uL (2.7-7.7); Neutrophil % 80.6 % (47-70); Platelet Count 131 K/mm3 (150-450); RBC Distribution Width CV 13.5 % (11.6-14.6); RBC Distribution Width SD 51.8 fl (35.1-43.9); Red Blood Count 4.84 M/mm3 (4.6-6.2)
[2019-11-11 11:58] LABS: Vitamin D,25 Hydroxy 42.1 ng/mL
[2019-11-11 12:03] LABS: ALB/GLOB Ratio 0.9 RATIO (0.9-2.4); AST(SGOT) 26 U/L (15-37); Alanine Aminotransfer ALT/SGPT 28 U/L (16-61); Albumin, Serum 3.8 g/dL (3.2-5.0); Alkaline Phosphatase 101 U/L (45-117); Anion Gap 4 (5-15); BUN 24 mg/dL (7-18); BUN/Creat Ratio 18.9 RATIO (10-20); Calcium,Total 9.3 mg/dL (8.5-10.1); Chloride 99 mmol/L (98-107); Creatinine, Serum 1.27 mg/dL (0.70-1.30); EST Glomerular Filtration Rate 58 mL/min (>60); Est Glom Filt Rate - Afr Amer 70 mL/min (>60); Globulin 4.1 g/dL (2.2-4.2); Glucose 97 mg/dL (74-106); Potassium 4.1 mmol/L (3.5-5.1); Protein, Total 7.9 g/dL (6.4-8.2); Sodium Level 133 mmol/L (136-145); Thyroid Stim Hormone (TSH) 2.33 uIU/mL (0.358-3.74)
== END ==
PROVIDERS: PCP Family Medicine Geriatric Medicine; Referring Provider Family Medicine Geriatric Medicine; Visit Provider Family Medicine Geriatric Medicine
DX: E11.9 Type 2 diabetes mellitus without complications (principal); E23.6 Other disorders of pituitary gland; E55.9 Vitamin D deficiency, unspecified; I10 Essential (primary) hypertension
CPT/HCPCS: 36415; 80053; 82306; 84403; 84443; 85025

== ENCOUNTER → 2020-05-11 15:15 | Outpatient (CLI) | payer MEDICARE, SELFPAY ==
[2019-02-03 10:47] VITALS: BMI 26.9
[2020-05-11 17:37] LABS: Absolute Lymphocyte Count 1.24 X10^3/uL (0.83-4.51); Absolute Neutrophil Count 4.2 X10^3/uL (2.0-7.7); Basophil# 0.02 X10^3/uL; Basophil% 0.3 % (0-1); Eosinophil# 0.01 X10^3/uL; Eosinophils% 0.2 % (0-5); Hematocrit 41.3 % (40-54); Hemoglobin 13.6 g/dL (13.0-16.5); Lymphocyte # 1.24 X10^3/ul (4.0); Lymphocyte % 20.8 % (19-41); Mean Corp Hgb Conc 32.9 g/dL (32-36); Mean Corpuscular Volume 100.2 fL (80-94); Mean Platelet Vol. 10.8 fl (6.2-12.0); Monocyte# 0.51 X10^3/uL; Monocyte% 8.5 % (0-10); NRBC Flagged by Analyzer 0 % (0-5); Neutrophil # 4.17 X10^3/uL (2.7-7.7); Neutrophil % 69.9 % (47-70); Platelet Count 132 K/mm3 (150-450); RBC Distribution Width CV 13.4 % (11.6-14.6); RBC Distribution Width SD 49.3 fl (35.1-43.9); Red Blood Count 4.12 M/mm3 (4.6-6.2)
[2020-05-11 17:48] LABS: Protein, Urine (Random) 36.2 mg/dL (<11.9); Protein:Creat Ratio 398 mg/g CRE (0-200)
[2020-05-11 17:56] LABS: ALB/GLOB Ratio 0.8 RATIO (0.9-2.4); AST(SGOT) 22 U/L (15-37); Alanine Aminotransfer ALT/SGPT 23 U/L (16-61); Albumin, Serum 3.4 g/dL (3.2-5.0); Alkaline Phosphatase 97 U/L (45-117); Anion Gap 7 (5-15); BUN 26 mg/dL (7-18); BUN/Creat Ratio 17.3 RATIO (10-20); Calcium,Total 9.1 mg/dL (8.5-10.1); Chloride 96 mmol/L (98-107); EST Glomerular Filtration Rate 48 mL/min (>60); Est Glom Filt Rate - Afr Amer 58 mL/min (>60); Globulin 4.2 g/dL (2.2-4.2); Glucose 132 mg/dL (74-106); Phosphorus 3.5 mg/dL (2.5-4.9); Potassium 4.5 mmol/L (3.5-5.1); Protein, Total 7.6 g/dL (6.4-8.2); Sodium Level 133 mmol/L (136-145)
== END ==
PROVIDERS: Family Provider Family Medicine Geriatric Medicine; PCP Family Medicine Geriatric Medicine; Referring Provider Internal Medicine Nephrology; Visit Provider Internal Medicine Nephrology
DX: N18.30 Chronic kidney disease, stage 3 unspecified (principal); E11.9 Type 2 diabetes mellitus without complications; I12.9 Hypertensive chronic kidney disease with stage 1 through stage 4 chronic kidney disease, or unspecified chronic kidney disease; E55.9 Vitamin D deficiency, unspecified; E23.6 Other disorders of pituitary gland
CPT/HCPCS: 36415; 80053; 82306; 82570; 84100; 84156; 84403; 84443; 85025

== ENCOUNTER → 2020-05-16 08:04 | Outpatient (CLI) | payer MEDICARE, SELFPAY ==
[2019-02-03 10:47] VITALS: BMI 26.9
--- NOTE | 2020-05-16 16:21 | PFTCOMP_ITS ---
COMPLETE PULMONARY FUNCTION TEST INTERPRETATION Brief HPI: Patient is a 79 year old male, currently under the care of Dr. Valentino, who presents to [facility] for complete pulmonary function tests secondary to diagnosis of dyspnea. Respiratory therapist reports good effort and reproducible results. Interpretation: Forced expiration spirometry shows no large airways obstructive ventilatory defect with an FEV1 of 85% predicted. There is no significant bronchodilator response by strict ATS criteria. Spirograms are of good quality and plateau normally. The respiratory flow volume loop shows a normal pattern. Lung volumes by body plethysmography show a decreased total lung capacity at 5.08 L, 74% predicted. All other lung volumes are reduced symmetrically. Diffusion capacity by carbon monoxide is normal at 76% predicted. The airway resistance is normal. No previous pulmonary function tests were available for review. Impression: Mild restrictive ventilatory defect with a symmetric reduction diffusion capacity.
== END ==
PROVIDERS: PCP Family Medicine Geriatric Medicine; Referring Provider Family Medicine Geriatric Medicine; Visit Provider Family Medicine Geriatric Medicine
DX: R06.02 Shortness of breath (principal)
CPT/HCPCS: 94060; 94726; 94729

== ENCOUNTER → 2020-08-08 09:58 | Outpatient (CLI) | payer MEDICARE, SELFPAY ==
[2019-02-03 10:47] VITALS: BMI 26.9
[2020-08-08 12:58] LABS: Absolute Neutrophil Count 5.7 X10^3/uL (2.0-7.7); Basophil# 0.03 X10^3/uL; Basophil% 0.4 % (0-1); Eosinophil# 0.06 X10^3/uL; Eosinophils% 0.8 % (0-5); Hematocrit 44.1 % (40-54); Hemoglobin 14.4 g/dL (13.0-16.5); Mean Corp Hgb Conc 32.7 g/dL (32-36); Mean Corpuscular Hgb 32.9 pg (27.0-32.0); Mean Corpuscular Volume 100.7 fL (80-94); Mean Platelet Vol. 11.2 fl (6.2-12.0); Monocyte# 0.62 X10^3/uL; Monocyte% 7.8 % (0-10); NRBC Flagged by Analyzer 0 % (0-5); Neutrophil # 5.67 X10^3/uL (2.7-7.7); Neutrophil % 71.6 % (47-70); Platelet Count 124 K/mm3 (150-450); RBC Distribution Width CV 13.3 % (11.6-14.6); RBC Distribution Width SD 50.1 fl (35.1-43.9); Red Blood Count 4.38 M/mm3 (4.6-6.2); White Blood Count 7.9 K/mm3 (4.4-11.0)
[2020-08-08 13:02] LABS: Vitamin D,25 Hydroxy 33.2 ng/mL
[2020-08-08 13:11] LABS: ALB/GLOB Ratio 0.8 RATIO (0.9-2.4); AST(SGOT) 27 U/L (15-37); Alanine Aminotransfer ALT/SGPT 23 U/L (16-61); Albumin, Serum 3.6 g/dL (3.2-5.0); Alkaline Phosphatase 97 U/L (45-117); Anion Gap 8 (5-15); BUN 30 mg/dL (7-18); BUN/Creat Ratio 18.2 RATIO (10-20); Calcium,Total 9.2 mg/dL (8.5-10.1); Chloride 99 mmol/L (98-107); Creatinine, Serum 1.65 mg/dL (0.70-1.30); EST Glomerular Filtration Rate 43 mL/min (>60); Est Glom Filt Rate - Afr Amer 52 mL/min (>60); Globulin 4.4 g/dL (2.2-4.2); Glucose 104 mg/dL (74-106); Potassium 4.2 mmol/L (3.5-5.1); Sodium Level 133 mmol/L (136-145); Thyroid Stim Hormone (TSH) 3.42 uIU/mL (0.358-3.74)
== END ==
PROVIDERS: PCP Family Medicine Geriatric Medicine; Visit Provider Family Medicine Geriatric Medicine
DX: I10 Essential (primary) hypertension (principal); E11.9 Type 2 diabetes mellitus without complications; E55.9 Vitamin D deficiency, unspecified; E23.6 Other disorders of pituitary gland
CPT/HCPCS: 36415; 80053; 82306; 84403; 84443; 85025

== ENCOUNTER → 2020-11-15 11:48 | Outpatient (CLI) | payer MEDICARE, SELFPAY ==
[2020-08-15 12:08] VITALS: BMI 28.2
[2020-11-15 12:24] LABS: Absolute Lymphocyte Count 0.95 X10^3/uL (0.83-4.51); Absolute Neutrophil Count 5.8 X10^3/uL (2.0-7.7); Basophil# 0.02 X10^3/uL; Basophil% 0.3 % (0-1); Eosinophil# 0.01 X10^3/uL; Eosinophils% 0.1 % (0-5); Hematocrit 44.2 % (40-54); Hemoglobin 14.4 g/dL (13.0-16.5); Lymphocyte # 0.95 X10^3/ul (0.83-4.51); Mean Corp Hgb Conc 32.6 g/dL (32-36); Mean Corpuscular Hgb 33.1 pg (27.0-32.0); Mean Corpuscular Volume 101.6 fL (80-94); Mean Platelet Vol. 10.6 fl (6.2-12.0); Monocyte# 0.52 X10^3/uL; Monocyte% 7.1 % (0-10); NRBC Flagged by Analyzer 0 % (0-5); Neutrophil # 5.79 X10^3/uL (2.7-7.7); Neutrophil % 79.1 % (47-70); Platelet Count 139 K/mm3 (150-450); RBC Distribution Width CV 14.8 % (11.6-14.6); RBC Distribution Width SD 54.9 fl (35.1-43.9); Red Blood Count 4.35 M/mm3 (4.6-6.2); White Blood Count 7.3 K/mm3 (4.4-11.0)
[2020-11-15 12:38] LABS: Vitamin D,25 Hydroxy 38.6 ng/mL
[2020-11-15 12:57] LABS: ALB/GLOB Ratio 0.9 RATIO (0.9-2.4); AST(SGOT) 23 U/L (15-37); Alanine Aminotransfer ALT/SGPT 18 U/L (16-61); Albumin, Serum 3.6 g/dL (3.2-5.0); Alkaline Phosphatase 103 U/L (45-117); Anion Gap 6 (5-15); BUN 14 mg/dL (7-18); BUN/Creat Ratio 9.6 RATIO (10-20); Calcium,Total 8.8 mg/dL (8.5-10.1); Chloride 98 mmol/L (98-107); Creatinine, Serum 1.46 mg/dL (0.70-1.30); EST Glomerular Filtration Rate 49 mL/min (>60); Est Glom Filt Rate - Afr Amer 60 mL/min (>60); Globulin 4.1 g/dL (2.2-4.2); Glucose 135 mg/dL (74-106); Protein, Total 7.7 g/dL (6.4-8.2); Sodium Level 133 mmol/L (136-145); Thyroid Stim Hormone (TSH) 2.84 uIU/mL (0.358-3.74)
== END ==
PROVIDERS: PCP Family Medicine Geriatric Medicine; Visit Provider Family Medicine Geriatric Medicine
DX: I10 Essential (primary) hypertension (principal); E11.9 Type 2 diabetes mellitus without complications; E55.9 Vitamin D deficiency, unspecified; E23.6 Other disorders of pituitary gland
CPT/HCPCS: 36415; 80053; 82306; 84403; 84443; 85025

== ENCOUNTER → 2020-12-25 14:07 | Outpatient (CLI) | payer MEDICARE, SELFPAY ==
[2020-08-15 12:08] VITALS: BMI 28.2
[2020-12-25 18:33] LABS: M R Staph aureus DNA By PCR Negative (Negative); Probe Check PASS; Staph aureus DNA By PCR NEGATIVE (Negative)
== END ==
PROVIDERS: PCP Family Medicine Geriatric Medicine; Visit Provider Family Medicine Geriatric Medicine
DX: S81.801A Unspecified open wound, right lower leg, initial encounter (principal); B95.62 Methicillin resistant Staphylococcus aureus infection as the cause of diseases classified elsewhere
CPT/HCPCS: 87070; 87075; 87205; 87640

== ENCOUNTER → 2021-04-16 11:01 | Outpatient (CLI) | payer MEDICARE, SELFPAY ==
[2019-02-03 10:47] VITALS: BMI 26.9
[2021-04-16 12:28] LABS: Hemoglobin 13.9 g/dL (13.0-16.5); Mean Corp Hgb Conc 33.1 g/dL (32-36); Mean Corpuscular Hgb 33.6 pg (27.0-32.0); Mean Corpuscular Volume 101.4 fL (80-94); Mean Platelet Vol. 10.9 fl (6.2-12.0); Platelet Count 146 K/mm3 (150-450); RBC Distribution Width CV 15.3 % (11.6-14.6); RBC Distribution Width SD 57.6 fl (35.1-43.9); Red Blood Count 4.14 M/mm3 (4.6-6.2); White Blood Count 7.6 K/mm3 (4.4-11.0)
[2021-04-16 12:40] LABS: Albumin, Serum 3.3 g/dL (3.2-5.0); BUN 23 mg/dL (7-18); BUN/Creat Ratio 16.1 RATIO (10-20); Calcium,Total 9.1 mg/dL (8.5-10.1); Chloride 97 mmol/L (98-107); Creatinine, Serum 1.43 mg/dL (0.70-1.30); EST Glomerular Filtration Rate 51 mL/min (>60); Est Glom Filt Rate - Afr Amer 61 mL/min (>60); Glucose 197 mg/dL (74-106); Phosphorus 2.9 mg/dL (2.5-4.9); Potassium 4.2 mmol/L (3.5-5.1); Sodium Level 134 mmol/L (136-145)
[2021-04-16 12:52] LABS: Protein:Creat Ratio 509 mg/g CRE (0-200)
== END ==
PROVIDERS: PCP Family Medicine Geriatric Medicine; Visit Provider Internal Medicine Nephrology
DX: N18.31 Chronic kidney disease, stage 3a (principal); E11.9 Type 2 diabetes mellitus without complications
CPT/HCPCS: 36415; 80069; 82570; 84156; 85027

== ENCOUNTER → 2021-05-16 10:00 | Outpatient (CLI) | payer MEDICARE, SELFPAY ==
[2021-05-16 12:27] LABS: Absolute Lymphocyte Count 1.28 X10^3/uL (0.83-4.51); Absolute Neutrophil Count 6.7 X10^3/uL (2.0-7.7); Basophil# 0.03 X10^3/uL; Basophil% 0.3 % (0-1); Eosinophil# 0.01 X10^3/uL; Eosinophils% 0.1 % (0-5); Hematocrit 43.3 % (40-54); Hemoglobin 14.4 g/dL (13.0-16.5); Lymphocyte # 1.28 X10^3/ul (0.83-4.51); Lymphocyte % 14.7 % (19-41); Mean Corp Hgb Conc 33.3 g/dL (32-36); Mean Corpuscular Hgb 33.5 pg (27.0-32.0); Mean Corpuscular Volume 100.7 fL (80-94); Mean Platelet Vol. 10.9 fl (6.2-12.0); Monocyte# 0.64 X10^3/uL; Monocyte% 7.3 % (0-10); NRBC Flagged by Analyzer 0 % (0-5); Neutrophil # 6.72 X10^3/uL (2.7-7.7); Neutrophil % 77.3 % (47-70); Platelet Count 141 K/mm3 (150-450); RBC Distribution Width CV 14.3 % (11.6-14.6); RBC Distribution Width SD 52.7 fl (35.1-43.9); White Blood Count 8.7 K/mm3 (4.4-11.0)
[2021-05-16 12:55] LABS: Vitamin D,25 Hydroxy 32.1 ng/mL
[2021-05-16 13:19] LABS: ALB/GLOB Ratio 0.7 RATIO (0.9-2.4); AST(SGOT) 26 U/L (15-37); Alanine Aminotransfer ALT/SGPT 22 U/L (16-61); Albumin, Serum 3.5 g/dL (3.2-5.0); Alkaline Phosphatase 99 U/L (45-117); Anion Gap 9 (5-15); BUN 28 mg/dL (7-18); BUN/Creat Ratio 18.3 RATIO (10-20); Calcium,Total 9.6 mg/dL (8.5-10.1); Chloride 96 mmol/L (98-107); Creatinine, Serum 1.53 mg/dL (0.70-1.30); EST Glomerular Filtration Rate 47 mL/min (>60); Est Glom Filt Rate - Afr Amer 57 mL/min (>60); Globulin 4.8 g/dL (2.2-4.2); Glucose 126 mg/dL (74-106); Potassium 4.4 mmol/L (3.5-5.1); Protein, Total 8.3 g/dL (6.4-8.2); Sodium Level 132 mmol/L (136-145); Thyroid Stim Hormone (TSH) 3.21 uIU/mL (0.358-3.74)
== END ==
PROVIDERS: PCP Family Medicine Geriatric Medicine; Visit Provider Family Medicine Geriatric Medicine
DX: I10 Essential (primary) hypertension (principal); E11.9 Type 2 diabetes mellitus without complications; E55.9 Vitamin D deficiency, unspecified; E23.6 Other disorders of pituitary gland
CPT/HCPCS: 36415; 80053; 82306; 84403; 84443; 85025

== ENCOUNTER → 2021-06-19 13:35 | Outpatient (CLI) | payer MEDICARE, SELFPAY ==
[2021-06-19 17:24] LABS: Anion Gap 3 (5-15); BUN 33 mg/dL (7-18); BUN/Creat Ratio 22.1 RATIO (10-20); Calcium,Total 9.4 mg/dL (8.5-10.1); Chloride 100 mmol/L (98-107); Creatinine, Serum 1.49 mg/dL (0.70-1.30); EST Glomerular Filtration Rate 48 mL/min (>60); Est Glom Filt Rate - Afr Amer 58 mL/min (>60); Glucose 205 mg/dL (74-106); Potassium 4.8 mmol/L (3.5-5.1); Sodium Level 135 mmol/L (136-145)
== END ==
PROVIDERS: PCP Family Medicine Geriatric Medicine; Visit Provider Internal Medicine Nephrology
DX: N17.9 Acute kidney failure, unspecified (principal)
CPT/HCPCS: 36415; 80048

== ENCOUNTER 2021-10-15 11:30 | Outpatient (CLI) | payer MEDICARE, SELFPAY ==
[2021-10-15 12:46] LABS: Protein, Urine (Random) 84.8 mg/dL (<11.9); Protein:Creat Ratio 946 mg/g CRE (0-200)
[2021-10-15 12:53] LABS: Albumin, Serum 3.5 g/dL (3.2-5.0); BUN 20 mg/dL (7-18); BUN/Creat Ratio 14.7 RATIO (10-20); Calcium,Total 9.3 mg/dL (8.5-10.1); Chloride 98 mmol/L (98-107); Creatinine, Serum 1.36 mg/dL (0.70-1.30); EST Glomerular Filtration Rate 53 mL/min (>60); Est Glom Filt Rate - Afr Amer 65 mL/min (>60); Glucose 167 mg/dL (74-106); Phosphorus 2.3 mg/dL (2.5-4.9); Potassium 4.3 mmol/L (3.5-5.1); Sodium Level 130 mmol/L (136-145)
== END 2021-10-15 23:59 | disposition home or self-care (01) ==
LOC: POLAB3 11:31
PROVIDERS: PCP Family Medicine Geriatric Medicine; Visit Provider Internal Medicine Nephrology
DX: N18.31 Chronic kidney disease, stage 3a (principal); E11.9 Type 2 diabetes mellitus without complications
CPT/HCPCS: 36415; 80069; 82570; 84156

== ENCOUNTER → 2021-11-20 | Outpatient (CLI) | payer MEDICARE, SELFPAY ==
[2021-11-20 11:08] LABS: Absolute Neutrophil Count 8.4 X10^3/uL (2.0-7.7); Basophil# 0.05 X10^3/uL; Basophil% 0.5 % (0-1); Hematocrit 46.4 % (40-54); Hemoglobin 15.5 g/dL (13.0-16.5); Lymphocyte % 11.5 % (19-41); Mean Corp Hgb Conc 33.4 g/dL (32-36); Mean Corpuscular Hgb 33.2 pg (27.0-32.0); Mean Corpuscular Volume 99.4 fL (80-94); Mean Platelet Vol. 10.6 fl (6.2-12.0); Monocyte# 0.72 X10^3/uL; Monocyte% 6.9 % (0-10); NRBC Flagged by Analyzer 0 % (0-5); Neutrophil # 8.36 X10^3/uL (2.7-7.7); Neutrophil % 80.4 % (47-70); Platelet Count 141 K/mm3 (150-450); RBC Distribution Width CV 14.4 % (11.6-14.6); RBC Distribution Width SD 52.5 fl (35.1-43.9); Red Blood Count 4.67 M/mm3 (4.6-6.2); White Blood Count 10.4 K/mm3 (4.4-11.0)
[2021-11-20 11:33] LABS: ALB/GLOB Ratio 0.8 RATIO (0.9-2.4); AST(SGOT) 32 U/L (15-37); Alanine Aminotransfer ALT/SGPT 31 U/L (16-61); Albumin, Serum 3.6 g/dL (3.2-5.0); Alkaline Phosphatase 117 U/L (45-117); Anion Gap 7 (5-15); BUN 29 mg/dL (7-18); BUN/Creat Ratio 19.5 RATIO (10-20); Calcium,Total 9.5 mg/dL (8.5-10.1); Chloride 94 mmol/L (98-107); Creatinine, Serum 1.49 mg/dL (0.70-1.30); EST Glomerular Filtration Rate 48 mL/min (>60); Est Glom Filt Rate - Afr Amer 58 mL/min (>60); Globulin 4.4 g/dL (2.2-4.2); Glucose 90 mg/dL (74-106); Potassium 4.2 mmol/L (3.5-5.1); Sodium Level 129 mmol/L (136-145); Thyroid Stim Hormone (TSH) 3.87 uIU/mL (0.358-3.74)
== END | disposition home or self-care (01) ==
LOC: POLAB3 09:52
PROVIDERS: PCP Family Medicine Geriatric Medicine; Visit Provider Family Medicine Geriatric Medicine
DX: I10 Essential (primary) hypertension (principal); E23.6 Other disorders of pituitary gland; E11.9 Type 2 diabetes mellitus without complications; E55.9 Vitamin D deficiency, unspecified
CPT/HCPCS: 36415; 80053; 84403; 84443; 85025

== ENCOUNTER → 2022-01-03 | Outpatient (CLI) | payer MEDICARE, SELFPAY ==
[2022-01-03 10:50] LABS: Anion Gap 5 (5-15); BUN 24 mg/dL (7-18); BUN/Creat Ratio 16.9 RATIO (10-20); Calcium,Total 9.5 mg/dL (8.5-10.1); Chloride 98 mmol/L (98-107); Creatinine, Serum 1.42 mg/dL (0.70-1.30); EST Glomerular Filtration Rate 51 mL/min (>60); Est Glom Filt Rate - Afr Amer 62 mL/min (>60); Glucose 116 mg/dL (74-106); Potassium 4.4 mmol/L (3.5-5.1); Sodium Level 132 mmol/L (136-145); Thyroid Stim Hormone (TSH) 1.76 uIU/mL (0.358-3.74)
== END | disposition home or self-care (01) ==
PROVIDERS: PCP Family Medicine Geriatric Medicine; Referring Provider Internal Medicine Nephrology; Visit Provider Internal Medicine Nephrology
DX: E03.9 Hypothyroidism, unspecified (principal); E87.1 Hypo-osmolality and hyponatremia
CPT/HCPCS: 36415; 80048; 84443

== ENCOUNTER → 2022-03-08 | Outpatient (CLI) | payer MEDICARE, SELFPAY ==
[2022-03-08 11:47] LABS: Protein, Urine (Random) 49.4 mg/dL (<11.9); Protein:Creat Ratio 449 mg/g CRE (0-200)
[2022-03-08 12:13] LABS: Albumin, Serum 4.1 g/dL (3.2-5.0); BUN 20 mg/dL (7-18); BUN/Creat Ratio 25.7 RATIO (10-20); Calcium,Total 9.2 mg/dL (8.5-10.1); Chloride 105 mmol/L (98-107); Creatinine, Serum 0.78 mg/dL (0.70-1.30); EST Glomerular Filtration Rate 102 mL/min (>60); Est Glom Filt Rate - Afr Amer 123 mL/min (>60); Glucose 90 mg/dL (74-106); Phosphorus 2.9 mg/dL (2.5-4.9); Potassium 4.5 mmol/L (3.5-5.1); Sodium Level 138 mmol/L (136-145)
== END | disposition home or self-care (01) ==
LOC: LAB 10:22
PROVIDERS: PCP Family Medicine Geriatric Medicine; Referring Provider Internal Medicine Nephrology; Visit Provider Internal Medicine Nephrology
DX: E11.22 Type 2 diabetes mellitus with diabetic chronic kidney disease (principal); N18.31 Chronic kidney disease, stage 3a
CPT/HCPCS: 36415; 80069; 82570; 84156

== ENCOUNTER → 2022-05-22 | Outpatient (CLI) | payer MEDICARE, SELFPAY ==
[2022-05-22 12:18] LABS: Absolute Lymphocyte Count 0.78 X10^3/uL (0.83-4.51); Absolute Neutrophil Count 5.8 X10^3/uL (2.0-7.7); Basophil# 0.03 X10^3/uL; Basophil% 0.4 % (0-1); Hematocrit 44.3 % (40-54); Hemoglobin 14.5 g/dL (13.0-16.5); Lymphocyte # 0.78 X10^3/ul (0.83-4.51); Lymphocyte % 10.7 % (19-41); Mean Corp Hgb Conc 32.7 g/dL (32-36); Mean Corpuscular Hgb 33.7 pg (27.0-32.0); Mean Platelet Vol. 10.5 fl (6.2-12.0); Monocyte# 0.62 X10^3/uL; Monocyte% 8.5 % (0-10); NRBC Flagged by Analyzer 0 % (0-5); Neutrophil # 5.82 X10^3/uL (2.7-7.7); Platelet Count 144 K/mm3 (150-450); RBC Distribution Width CV 14.4 % (11.6-14.6); RBC Distribution Width SD 54.5 fl (35.1-43.9); White Blood Count 7.3 K/mm3 (4.4-11.0)
[2022-05-22 12:41] LABS: Vitamin D,25 Hydroxy 51.2 ng/mL
[2022-05-22 12:47] LABS: ALB/GLOB Ratio 0.7 RATIO (0.9-2.4); AST(SGOT) 30 U/L (15-37); Alanine Aminotransfer ALT/SGPT 24 U/L (16-61); Albumin, Serum 3.3 g/dL (3.2-5.0); Alkaline Phosphatase 110 U/L (45-117); Anion Gap 9 (5-15); BUN 26 mg/dL (7-18); BUN/Creat Ratio 17.6 RATIO (10-20); Calcium,Total 9.3 mg/dL (8.5-10.1); Chloride 95 mmol/L (98-107); Creatinine, Serum 1.48 mg/dL (0.70-1.30); EST Glomerular Filtration Rate 48 mL/min (>60); Est Glom Filt Rate - Afr Amer 59 mL/min (>60); Globulin 4.5 g/dL (2.2-4.2); Glucose 103 mg/dL (74-106); Potassium 4.9 mmol/L (3.5-5.1); Protein, Total 7.8 g/dL (6.4-8.2); Sodium Level 130 mmol/L (136-145); Thyroid Stim Hormone (TSH) 3.12 uIU/mL (0.358-3.74)
== END | disposition home or self-care (01) ==
LOC: POLAB3 09:11
PROVIDERS: PCP Family Medicine Geriatric Medicine; Visit Provider Family Medicine Geriatric Medicine
DX: E55.9 Vitamin D deficiency, unspecified (principal); E11.9 Type 2 diabetes mellitus without complications; I10 Essential (primary) hypertension
CPT/HCPCS: 36415; 80053; 82306; 84443; 85025

== ENCOUNTER → 2022-10-01 | Outpatient (CLI) | payer MEDICARE, SELFPAY ==
--- NOTE | 2022-10-01 09:19 | PR.ITP_ITS ---
General Information2 - General Information Admitting Diagnosis: Idiopathic Pulmonary Fibrosis/ Lung Nodules Secondary Diagnosis: Hypertension, DM Type II, Hypothyroidism - PFT FEV1:: 2.20 - 77% FVC:: 2.73 - 70% FEV1/FVC%:: 81 - Personal Learning Style/Barriers Personal Learning Style:: Audio/Visual, Written Barriers to Learning: Vision impaired Educational Classes NC: Living with Chronic Lung Disease: Initial Assessment, Breathing Retraining: Initial Assessment, Exercise: Initial Assessment, Energy Conservation: Initial Assessment - Education/Goals NC Patient Goals: Increase muscle strength: Initial Assessment, Experience less dyspnea: Initial Assessment, Improve energy level: Initial Assessment, Improve the ability to cope with ADLs: Initial Assessment, Improve knowledge of lung disease: Initial Assessment, Understand how to use medications: Initial Assessment, Increase knowledge of oxygen use: Initial Assessment, Improve diet and nutrition: Initial Assessment, Improve my quality of life: Initial Assessment, Reduce Stress/relaxation techniques: Initial Assessment Exercise - Initial Assessment - Visit Date of Eval: 10/01/22 Session Number:: 0 - Pre-evaluation - Problem/Goals Problems: Deconditioning, No regular exercise, Knowledge deficit exercise guidelines, Knowledge deficit exercise safety Goals:: Aerobic exercise 30-60 mins x 12 weeks [36 sessions] - Functional Capacity Test Number of feet walked: 380 Lowest SPO2 %: 91 O2 L/M: 2 - Physician Prescribed Exercise Modalities: Treadmill, Airdyne, NuStep Frequency (days/week): 3 Duration (Minutes):: 30-45 Intensity: 60-80% of age predicted maximum heart rate reserve Current METSs:: 3.0 Target HR:: 104 - THRR 90-104 max HR 118 Resting Blood Pressure: 138/66 EKG Type: NSR with sinus arrythmia - Plan Plan and Plan to Review:: Benefits of exercise, Core components of exercise, How to measure dyspnea level, How to monitor dyspnea level, Exercise intensity, Exercise safety guideline, Home exercise guidelines, Janeth: 3-4/11-13 Home Exercise Mode: Walking - encourage 30-45 min walking in addition to daily activities Nutrition/Wt Mgmt - Initial - Visit Date of Eval: 10/01/22 Session Number:: 0 - pre-evaluation - Problems/Goals Problems: Overweight Goals: Wt Loss 1-2 lbs per week - Weight Management Knowledge Deficit Management of:: Overweight Admit Height:: 5 ft 10 in Admit Weight:: 202 lb Admit BMI:: 29.0 - Intervention Referral to dietitian:: Yes Will attend diet classes:: No Intervention/Plan: Instruct on ideal BMI & set weight loss goal w/patient, Assist pt to ID & incorporate diet changes for weight loss by S9, Encourage goal of using 250-300dcal per session for weight loss - Plan Nutrition Plan: Yes Review BMI or WC & identify target wt & strategies for wt control, Yes Nutrition education class:, Yes Weight control education class: Psychosocial - Initial Assess - Visit Date of Eval: 10/01/22 Session Number:: 0 - pre-evaluation - Problems/Goals History of Emotional Disorders: Anxious, Depression - Psychosocial Test Tool Used:: Pulmonary QOL, PHQ-9 Questionnaire - Referral to Behavioral Health PS - Interventions: Yes Attend Stress Management Classes, No Referral to Behavioral Health if PHQ-9 score >9:, No Referral to [facility], No Referral to Physician if PHQ-9 if score is 5-9: - Intervention/Plan: See List Interventions/Plan:: Assess stressors,coping strategies & signs of derpression on admission, Instruct/assist pt to develop coping & personal stress Mgt strategies, Instruct patient to recognize signs & symptoms of depression, Instruct patient to recog Oxygen & Oxygen Titration Init - Visit Date of Eval: 10/01/22 Session Number:: 0 - pre-evaluation - Initial Assessment Oxygen on Admission: Oxygen w/activity - 2 liters Patient Reports:: Non-productive cough - Goal Oxygen & Oxygen Tritration Goals: Effective hypoxemia control, Uses O2 as Rx'd/safely - Plans Plan: Monitor SpO2 rest & with exercise, Train appropriate O2 use with exercise, Train O2 safety & systems Reviewed prescribed medications:: Purpose, Schedule, Side effects, Importance of compliance Instruct correct technique/timing & care:: Nebulizer, Return demo use of inhaler Bronchial Hygiene Plan: Controlled cough, Vibratory PEP device, Hydration, Evaluate sputum, Signs/symptoms to report: Core Components - Initial - Visit Date of Eval: 10/01/22 Session Number:: 0 - pre-evaluation - Hypertension Hypertension Diagnosis:: Hypertension ICD-10 I10 BP: 138/66 [place] [employer] Hypertension Guidelines: [place] [employer] Hypertension Guidelines. Normal BP Less than 120/80. Elevated BP 120/80. Hypertension Stage 1: BP 130-139/80-89. Hypertesnion Stage 2: BP 140 or higher/90 or higher. Hypertension Crisis: BP higher than 180/120 Low Sodium diet: No Outcomes/Goals: Able to verbalize/achieve optimal blood pressure <130/80, Incorporates diet changes & exercise for blood pressure control by DC - Tobacco - Initial Assessment Tobacco Program Goals: Complete smoking cessation. Attend education classes. Improve Knowledge Test score Stages of Change:: Action Learning Barriers: Vision, Ready to Learn Do you have family support?: Yes Tobacco Use: Non-smoker Do you use smokeless tobacco?: No Smoking Cessation Referral:: No Individual Education/Counseling:: No Education Schedule Given:: Yes Gave Education Materials For:: Pulmonary Disease, Breathing Techniques, Pulmonary A&P, Exacerbation Signs & Symptoms - Exacerbation Mgmt & Airway Clearance Problems:: Hypoxemia, Poor knowledge of O2 use/safety Hypoxemia Goals:: Hypoxemia managed, Using O2 as Rx's safely Bronchial Hygiene Problems:: Ineffective secretion clearance, Respiratory infection Prevention/Management Goals: Pt demonstrates effective cough, effective secretion clearance., Pt describes signs and symptoms of infection. Patient Reports:: Non-productive cough Plan: Monitor SpO2 rest & with exercise, Train appropriate O2 use at rest, Train appropriate O2 use with exercise, Train O2 safety & systems Instruct correct technique/timing & care:: MDI, Return demo use of inhaler Bronchial Hygiene Plan: Controlled cough, Vibratory PEP device, Hydration, Evaluate sputum, When to call MD, Signs/symptoms to report: - Medication Interventions/plans: Instruct on medication effects & side effects, Review medication list w/patient every two weeks, Instruct importance of taking meds as ordered & assist problem solving Medications: Yes MDI, No DPI, No NEB, No Spacer Reviewed prescribed medications:: Purpose, Schedule, Side effects, Importance of compliance - Diabetes Diabetes:: Yes Hgb A1C: 6.1 Insulin: Yes Do you monitor your blood sugar at home?: Yes BMI:: 29 Refer to Nutritional Services: DSMNT & MNT Referral to dietitian:: Yes Referral to Diabetic Clinic:: Yes Will attend diet classes:: Yes Core Components - 30 DAYS Core Components - 60 DAYS Core Components - 90 DAYS Core Components - Final Patient Health Questionnaire Initial Assessment 1. Little interest or pleasure in doing things: Not at all 2. Feeling down, depressed, or hopeless: Not at all 3. Trouble falling or staying asleep, or sleeping too much: Not at all 4. Feeling tired or having little energy: Several days 5. Poor appetite or overeating: Not at all 6. Feeling bad about yourself -- or that you are a failure or have let yourself or your family down: Not at all 7. Trouble concentrating on things, such as reading the newspaper or watching television: Not at all 8. Moving or speaking so slowly that other people could have noticed. Or the opposite - being so fidgety or restless that you have been moving around a lot more than usual: Not at all 9. Thoughts that you would be better off , or of hurting yourself in some way: Not at all How difficult have these problems made it for you to do your work, take care of things at home, or get along with other people?: Somewhat difficult Total Score: 1 Knowledge Questionaire (BCKQ) - Information Information: [place] COPD Knowledge Questionnaire (BCKQ) This questionnaire is designed to find out what you know about your lung prob fan. It should be completed without help form anyone else. This usually takes between 10 and 20 minutes. Your answers will help us to find out what information you need to help you to understand and manage your lung condition. [employer] [place] which you think is the correct answer. Self-Efficacy Initial Assessment We would like to know how confident you are in doing certain activities. Please select your confidence level for:: Select your confidence level for the following using the scale 1-10 where 1 is not at all confident and 10 is totally confident. Your score is the average of all 6 responses. Fatigue: How confident are you that you can keep the fatigue caused by your disease from interfering with the things you want to do? Select Number: 5 Physical Discomfort or Pain: How confident are you that you can keep the physical discomfort or pain of your disease from interfering with the things you want to do? Select Number: 5 Emotional Distress: How confident are you that you can keep the emotional dis tress caused by your disease from interfering with the things you want to do? Select Number: 5 Other Symptoms or Health Problems: How confident are you that you can keep other symptoms or health problems from interfering with the things you want to do? Select Number: 5 Different Tasks and Activities: How confident are you that you can do the different tasks and activities needed to manage your health condition so as to reduce your need to see a doctor? Select Number: 5 Medication: How confident are you that you can do things other than just taking medication to reduce how much your illness affects your everyday life? Select Number: 6 Total Score:: 5 Nutrition Survey - Nutrition Survey Initial Have you lost >10 lbs over the past 2 months without trying?: No Are you following a special diet at home for diabetes, low fat, or low salt?: Yes Are you interested in meeting with a dietitian for help understanding your diet?: No Do you eat less than 3 meals a day?: Yes Do you eat fatty meats (rosado, sausage, ribs, etc), fried foods, desserts, large amounts of salad dressings, margarine, butter, or cheese most days?: Yes Do you have food allergies? [Enter types in comment field]: No Do you eat in restaurants more than 3 times a week?: No Do you season food with salt, seasoning salt, or garlic salt?: No Do you used canned, boxed, frozen meals, or soups, seasoning packets?: No Total Score:: 3
--- NOTE | 2022-10-01 09:23 | PCM.PR.HP ---
History of Present Illness Arrival date:: 10/01/22 Arrival time:: 09:23 Date of Referral:: 09/26/22 Date of Evaluation: 10/01/22 Referring Physician: Dr. Raine Siddiqui Primary Diagnosis: Idiopathic Pulmonary Fibrosis/ Lung Nodules mMRC Breathless Scale: When is the patient short of breath? Y/N Grade: Description of Breathlessness: 0 I only get breathless with strenuous exercise. 1 I get short of breath when hurrying on level ground or walking up a slight hill. 2 On level ground, I walk slower than people of the same age because of breathless, or have to stop for breath when walking at my own pace. 3 I stop for breath after walking 100 yards or after a few minutes on level ground. 4 I am too breathless to leave the house or I am breathless when dressing. Respiratory Problems: Yes: Fatigue, Able to Speak in Full Sentences, Dyspnea with Activity, Cough with Secretions No: Limited Range of Motion, Chest Pain, Wheezing, Hoarseness, Anxiety, Panic, Dyspnea at Rest, Dyspnea Lying Down Flat - Secretions Normal Color:: clear white Thick:: No Thin:: Yes Cough:: Yes AM: Yes Hx of Sleep Apnea: No Do you snore loudly (louder than talking or can be heard through closed doors)?: Yes Do you often feel tired/ fatigued/ sleepy during daytime?: No Has anyone observed you stop breathing during sleep?: No History of Hypertension (for STOP score): Yes STOP Results: Positive Home Medications: Home Medications pioglitazone 45 mg tablet 45 mg PO DAILY 90 days #90 tabs 08/31/18 sitagliptin phosphate 50 mg tablet (Januvia) 50 mg PO DAILY 08/31/18 testosterone cypionate 200 mg/mL intramuscular oil 100 mg IM QWEEK 28 days #2 mL 08/31/18 aspirin 81 mg tablet,delayed release (Adult Aspirin Regimen) 81 mg PO DAILY 09/02/18 cholecalciferol (vitamin D3) 25 mcg (1,000 unit) tablet 1,000 unit PO DAILY 08/15/20 insulin detemir U-100 100 unit/mL (3 mL) subcutaneous pen (Levemir FlexTouch U-100 Insulin) 30 unit subcut DAILY 08/16/21 levothyroxine 25 mcg tablet 25 mcg PO DAILY 02/10/22 lisinopril 20 mg tablet See Rx Instructions .Route .COMPLEX #90 tabs 10/17/21 atenolol 50 mg tablet See Rx Instructions .Route .COMPLEX #90 tabs 05/16/22 Allergies/Adverse Reactions: Allergies Tetanus Vaccines and Toxoid Adverse Reaction (Verified 08/16/21 08:45) Nausea/Vom/Diarrhea Medical Utilization Do you use a peak flow meter at home?: No Do you use a spacer device with your inhalers?: No Number of hospital visits in the last year?: 0 Number of emergency room visits in the last year?: 0 Do you see your physician on a regular schedule?: Yes How often?: PCP 6 months & Pulmonary 6 months Advanced Directives - Advanced Directives Power of Intensive Care Unit Registered Nurse: Yes Living Will: Yes Advance Directives Information Provided: No Advance Directives on File: Yes DNR Order?:: No - MOLST See MOLST form: No Past Medical History - Covid-19 Screening Fever: No Unexplained muscle aches: No Current respiratory symptoms: No Upper respiratory infections symptoms: Yes - Chronic Cough d/t fibrosis Gastro-intestinal symptoms: No Vtl-[id number]-[id number] symptoms: No Has tested positive for COVID-19 in last 30 days: No Date of testin10/01/22 - All vaccinations & Boosters Had contact w/person w/symptoms or Covid-19 (+) last 14 days: No Has High Risk Exposures ID'd by Health dept/Inf Control team: No 65 years or older:: Yes Lives in Assisted Living facility:: No Has a chronic lung disease or moderate to severe asthma:: Yes Has a serious heart condition:: No Immunocompromised:: No Severely obese (Body Mass Index of 40 or higher):: No Diabetic:: Yes Has chronic kidney disease undergoing dialysis:: No Has liver disease:: No Medical History: Past Medical History (Last Reviewed 08/16/21 @ 08:51 by Jackie Reina) Anxiety and depression F41.9, F32.9 Chronic kidney disease (CKD) N18.9 Essential (primary) hypertension I10 Hyperlipidemia E78.5 Hypogonadism Hypothyroidism E03.9 Premature ventricular contractions I49.3 Type 2 diabetes mellitus E11.9 Surgical History: Past Surgical History (Last Reviewed 08/16/21 @ 08:51 by Jackie Reina) History of sinus surgery Z98.890 - Current/ Previous Services Pulmonary Rehab:: No Social History - Smoking History Smoking Status: Never smoker Hx Tobacco Use: No Hx Smoking Exposure: No - Alcohol Use Alcohol Usage: Yes - Substance Abuse Hx Substance Use: No - Occupation Occupation (List type of work in comments):: Retired - Hobbies, Recreation, Social Activities Hobbies: Sports - canoeing, boating, hunting walking in the be., Exercise - mowing yards, Other - working on old cars, 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 Recreational Activities: I am able to engage in a few activities - I know what I can do and What I can't do. Functioning ADL/IADL - Current Ability Current Ability: Independent Self-Care (e.g.,grooming, dressing, & bathing), Independent Ambulation, Independent Transfer, Independent Household tasks (e.g., light meal prep, laundry, shopping) - Pt Functioning Prior to Problem Prior Functioning: Self-Care (e.g.,grooming, dressing, & bathing): Independent, Ambulation: Independent, Transfer: Independent, Household tasks (e.g., light meal prep, laundry, shopping): Independent Social Environment - Status Marital Status: - Current Living Arrangements Living Environment:: Spouse - Children How many children do you have?: 2 Do any of your children live nearby?: Yes - Safety Do you feel safe in your surroundings?: Yes Review of Systems Review of Systems: Right click = Denies ([place]). Left click = Reports ([place]) Respiratory: Reports: Cough, SOB upon Exertion, Sputum production, Dizziness/Lightheadedness - when gets really short of breath, when sugar levels drop., Fatigue. Denies: Hemoptysis, Pleuritic Pain, SOB at Rest, Wheezing, Appetite, Normal, PVD, Sexual changes, Sleep, Normal Is Patient Pain Free?: Yes Pain Location: none Pain Level: 0/10 Risk Factor Assessment - Vital Signs Temperature: 98.6 F Pulse Rate: 68 Pulse Rhythm: Regular Respiratory Rate: 16 Pulse Ox: 98 Blood Pressure: 138/66 - Diabetes Diabetic History: Type II, Medication Dependent, Insulin Dependent Nutrition Referral for Diabetes: Yes - Obesity Height: 5 ft 10 in Weight:: 202 lb Weight in Pounds: 202.0 lbs Weight Source: Estimated by Patient Body Mass Index (BMI): 29.0 Nutritional Referral for Obesity: No - Physical Activity Physical Inactivity: Recreational activity - Risk Stratification Risk Guidelines: Lowest Risk: Risk Factor for Smoking, Risk Factor for Dyslipidemia, Risk Factor for Diabetes, Risk Factor for Sedentary Lifestyle, Risk Factor for Depression, Moderate Risk: Risk Factor for Obesity - 29, Risk Factor for Hypertension - 138/66 Motivation - Motivation to Participate On a scale of 1 to 10, how prepared are you to commit to attending program?: 10 What do you see as barriers to successfully being able to complete the program?: none What do you see as the benefits of succesfully completing the program? In other words, what do you hope to get out of participating in the program?: get back in some form of shape before good weather gets here Are there issues you are dealing with that will interfere with completing the program?: no Do you have a spouse or signficant other, family or friends who will help support you to complete the program?: yes
[2022-10-01 09:46] VITALS: BP 138/66; PULSE 68; RESP 16; TEMP 37; O2SAT 98; BMI 29.0
[2022-10-01 09:54] VITALS: BP 138/66; BMI 29.0
== END | disposition home or self-care (01) ==
PROVIDERS: PCP Family Medicine Geriatric Medicine
DX: J84.112 Idiopathic pulmonary fibrosis (principal)

== ENCOUNTER 2022-10-04 10:30 | Outpatient (RCR) | payer MEDICARE, SELFPAY | END 2022-10-04 23:59 | LOC: PR 10:30 | PROVIDERS: PCP Family Medicine Geriatric Medicine | DX: J84.112 Idiopathic pulmonary fibrosis (principal) | CPT/HCPCS: 97150; G0239 ==

== ENCOUNTER 2022-11-01 10:30 | Outpatient (RCR) | payer MEDICARE, SELFPAY ==
--- NOTE | 2022-11-01 08:56 | EX.OP.PR.TP ---
Exercise - 30-Day Assessment - Visit Date of Eval: 11/01/22 Session Number:: 13 - Physician Prescribed Exercise Modalities: Treadmill, NuStep Intensity: 60-80% of age predicted maximum heart rate reserve Aerobic Exercise [30-60 min 3-7x/week]:: Progressing Janeth Current METSs:: 4.0 Target HR:: 104 - THRR 90-104 Current RPD:: 13 Maximum Exercise HR:: 71 Resting Blood Pressure: 158/60 Maximum Exercise Blood Pressure: 160/58 Minimum SpO2 with exercise: 91 EKG Type: NSR w/sinus arythmia occasional PAC and PVC Current Minutes of Exercise: 57 - Home Exercise Home Exercise:: Yes Mode: Walking Nutrition/Wt Mgmt - 30-Day - Visit Date of Eval: 11/01/22 Session Number:: 13 - Weight Management Height: 5 ft 10 in Weight:: 196 lb 8 oz BMI: 28.2 Weight Goals Progress:: Progressing Psychosocial - 30-Day - Visit Date of Eval: 11/01/22 Session Number:: 13 - Problems/Goals History of Emotional Disorders: None - Psychosocial Test Tool Used:: PHQ-9 Questionnaire - Referral to Behavioral Health PS - Interventions: Yes Attend Stress Management Classes, No Referral to Behavioral Health if PHQ-9 score >9:, No Referral to [facility], No Referral to Physician if PHQ-9 if score is 5-9: - Plan Interventions/Plan:: Assess stressors,coping strategies & signs of derpression on admission, Instruct/assist pt to develop coping & personal stress Mgt strategies, Instruct patient to recognize signs & symptoms of depression, Instruct patient to recog Oxygen & Oxygen Titration 30D - Visit Date of Eval: 11/01/22 Session Number:: 13 - Reassessment Reassessment- 30 Days: Demonstrate knowledge of O2 Rx at rest & w/exercise Breath Sounds:: Diminished, Insp. & Exp. Wheezing SpO2:: 91 - room air Core Components - Initial - Visit Date of Eval: 11/01/22 Session Number:: 13 - Hypertension Hypertension Diagnosis:: Hypertension ICD-10 I10 BP: 158/60 - Resting BPs remain > 130/80 [place] [employer] Hypertension Guidelines: [place] [employer] Hypertension Guidelines. Normal BP Less than 120/80. Elevated BP 120/80. Hypertension Stage 1: BP 130-139/80-89. Hypertesnion Stage 2: BP 140 or higher/90 or higher. Hypertension Crisis: BP higher than 180/120 Blood Pressure: 158/60 Outcomes/Goals: Able to verbalize/achieve optimal blood pressure <130/80, Incorporates diet changes & exercise for blood pressure control by DC - Tobacco - Initial Assessment Tobacco Program Goals: Complete smoking cessation. Attend education classes. Improve Knowledge Test score Stages of Change:: Action Learning Barriers: Vision Do you have family support?: Yes Tobacco Use: Non-smoker - Exacerbation Mgmt & Airway Clearance Problems:: Hypoxemia Bronchial Hygiene Problems:: Respiratory infection Prevention/Management Goals: Pt demonstrates effective cough, effective secretion clearance., Pt describes signs and symptoms of infection. Patient Reports:: No cough Plan: Monitor SpO2 rest & with exercise, Train appropriate O2 use with exercise, Train O2 safety & systems Instruct correct technique/timing & care:: MDI, DPI, Nebulizer Bronchial Hygiene Plan: Controlled cough, Vibratory PEP device, Hydration, Hand hygiene, Evaluate sputum, Signs/symptoms to report: - Medication Interventions/plans: Instruct on medication effects & side effects, Review medication list w/patient every two weeks, Instruct importance of taking meds as ordered & assist problem solving Medication Goals: Adherence to prescribed medications, Correct technique/timing & care of MDI, DPI, nebulizer, and spacer. Medications: Yes MDI, Yes DPI, Yes Spacer Reviewed prescribed medications:: Purpose, Schedule, Side effects, Importance of compliance - Diabetes Diabetes:: Yes Hgb A1C: 101 Insulin: Yes Do you monitor your blood sugar at home?: Yes BMI:: 28.98 Referral to dietitian:: No - Patient declined services Referral to Diabetic Clinic:: No Will attend diet classes:: Yes Core Components - 30 DAYS Core Components - 60 DAYS Core Components - 90 DAYS Core Components - Final Patient Health Questionnaire 30-Day Re-eval Assessment 1. Little interest or pleasure in doing things: Not at all 2. Feeling down, depressed, or hopeless: Not at all 3. Trouble falling or staying asleep, or sleeping too much: Not at all 4. Feeling tired or having little energy: Several days 5. Poor appetite or overeating: Not at all 6. Feeling bad about yourself -- or that you are a failure or have let yourself or your family down: Not at all 7. Trouble concentrating on things, such as reading the newspaper or watching television: Not at all 8. Moving or speaking so slowly that other people could have noticed. Or the opposite - being so fidgety or restless that you have been moving around a lot more than usual: Not at all 9. Thoughts that you would be better off , or of hurting yourself in some way: Not at all How difficult have these problems made it for you to do your work, take care of things at home, or get along with other people?: Not difficult at all Total Score: 1 Knowledge Questionaire (BCKQ) - Information Information: [place] COPD Knowledge Questionnaire (BCKQ) This questionnaire is designed to find out what you know about your lung problem. It should be completed without help form anyone else. This usually takes between 10 and 20 minutes. Your answers will help us to find out what information you need to help you to understand and manage your lung condition. [place] [employer] [place] which you think is the correct answer. Self-Efficacy 30-Day Re-eval Assessment We would like to know how confident you are in doing certain activities. Please select your confidence level for:: Select your confidence level for the following using the scale 1-10 where 1 is not at all confident and 10 is totally confident. Your score is the average of all 6 responses. Fatigue: How confident are you that you can keep the fatigue caused by your disease from interfering with the things you want to do? Select Number: 5 Physical Discomfort or Pain: How confident are you that you can keep the physical discomfort or pain of your disease from interfering with the things you want to do? Select Number: 5 Emotional Distress: How confident are you that you can keep the emotional distress caused by your disease from interfering with the things you want to do? Select Number: 6 Other Symptoms or Health Problems: How confident are you that you can keep other symptoms or health problems from interfering with the things you want to do? Select Number: 6 Different Tasks and Activities: How confident are you that you can do the different tasks and activities needed to manage your health condition so as to reduce your need to see a doctor? Select Number: 6 Medication: How confident are you that you can do things other than just taking medication to reduce how much your illness affects your everyday life? Select Number: 9 Total Score:: 6 Nutrition Survey
[2022-11-01 09:04] VITALS: BP 158/60; O2SAT 91; BMI 28.2; BMI 29.0
== END 2022-11-03 23:59 ==
LOC: PR 10:30
PROVIDERS: PCP Family Medicine Geriatric Medicine
DX: J84.112 Idiopathic pulmonary fibrosis (principal)
CPT/HCPCS: 97150; G0239

== ENCOUNTER → 2022-11-21 | Outpatient (CLI) | payer MEDICARE, SELFPAY ==
[2022-11-01 09:04] VITALS: BMI 28.2
[2022-11-21 13:25] LABS: Absolute Lymphocyte Count 0.82 X10^3/uL (0.83-4.51); Absolute Neutrophil Count 6.5 X10^3/uL (2.0-7.7); Basophil# 0.03 X10^3/uL; Basophil% 0.4 % (0-1); Hematocrit 46.7 % (40-54); Hemoglobin 15.6 g/dL (13.0-16.5); Lymphocyte # 0.82 X10^3/ul (0.83-4.51); Lymphocyte % 10.4 % (19-41); Mean Corp Hgb Conc 33.4 g/dL (32-36); Mean Corpuscular Hgb 33.7 pg (27.0-32.0); Mean Corpuscular Volume 100.9 fL (80-94); Mean Platelet Vol. 10.7 fl (6.2-12.0); Monocyte# 0.55 X10^3/uL; Monocyte% 6.9 % (0-10); NRBC Flagged by Analyzer 0 % (0-5); Neutrophil # 6.49 X10^3/uL (2.7-7.7); Neutrophil % 81.9 % (47-70); Platelet Count 118 K/mm3 (150-450); RBC Distribution Width CV 15.1 % (11.6-14.6); RBC Distribution Width SD 55.8 fl (35.1-43.9); Red Blood Count 4.63 M/mm3 (4.6-6.2); White Blood Count 7.9 K/mm3 (4.4-11.0)
[2022-11-21 13:41] LABS: Vitamin D,25 Hydroxy 51.3 ng/mL
[2022-11-21 13:53] LABS: ALB/GLOB Ratio 0.8 RATIO (0.9-2.4); AST(SGOT) 28 U/L (15-37); Alanine Aminotransfer ALT/SGPT 23 U/L (16-61); Albumin, Serum 3.5 g/dL (3.2-5.0); Alkaline Phosphatase 121 U/L (45-117); Anion Gap 7 (5-15); BUN 22 mg/dL (7-18); BUN/Creat Ratio 14.7 RATIO (10-20); Calcium,Total 9.2 mg/dL (8.5-10.1); Chloride 98 mmol/L (98-107); EST Glomerular Filtration Rate 48 mL/min (>60); Est Glom Filt Rate - Afr Amer 58 mL/min (>60); Globulin 4.5 g/dL (2.2-4.2); Glucose 129 mg/dL (74-106); Potassium 4.7 mmol/L (3.5-5.1); Sodium Level 131 mmol/L (136-145); Thyroid Stim Hormone (TSH) 2.98 uIU/mL (0.358-3.74)
== END | disposition home or self-care (01) ==
LOC: POLAB3 09:16
PROVIDERS: PCP Family Medicine Geriatric Medicine; Visit Provider Family Medicine Geriatric Medicine
DX: E11.65 Type 2 diabetes mellitus with hyperglycemia (principal); I10 Essential (primary) hypertension; E55.9 Vitamin D deficiency, unspecified; Z12.5 Encounter for screening for malignant neoplasm of prostate
CPT/HCPCS: 36415; 80053; 82306; 84443; 85025

== ENCOUNTER 2022-12-04 10:30 | Outpatient (RCR) | payer MEDICARE, SELFPAY ==
[2022-11-01 09:04] VITALS: BMI 28.2
[2022-11-04 00:47] VITALS: BP 158/60
--- NOTE | 2022-11-29 12:49 | PR.ITP_ITS ---
Exercise - 60-Day Assessment - Visit Date of Eval: 11/29/22 Session Number:: 12 - Physician Prescribed Exercise Modalities: Treadmill, NuStep Frequency (days/week): 3 Duration (Minutes):: 30-45 Intensity: 60-80% of age predicted maximum heart rate reserve Janeth Current METSs: 4 Current RPD:: 13 Maximum Exercise HR:: 92 Resting Blood Pressure: 144/84 Maximum Exercise Blood Pressure: 148/64 Minimum SpO2 with exercise: 89 EKG Type: NSR w/sinus arrythmia to sinus tachy w/occas PAC and PVC Current Minutes of Exercise: 57 - Home Exercise Home Exercise:: Yes Mode: Walking Nutrition/Wt Mgmt - 60-Day - Visit Date of Eval: 11/29/22 Session Number:: 25 - Weight Management Height: 5 ft 10 in Weight:: 89.811 kg BMI: 28.4 Psychosocial - 60-Day - Visit Date of Eval: 11/29/22 Session Number:: 25 - Problems/Goals History of Emotional Disorders: None Oxygen & Oxygen Titration 60D - Visit Date of Eval: 11/29/22 Session Number:: 25 - Reassessment Reassessment- 60 Days: Demonstrate knowledge of O2 Rx at rest & w/exercise Breath Sounds:: Diminished, Insp. & Exp. Wheezing Core Components - Initial Core Components - 30 DAYS Core Components - 60 DAYS - Visit Date of Eval: 11/29/22 Session Number:: 25 - Hypertension Hypertension Diagnosis:: Hypertension ICD-10 I10 Resting Blood Pressure:: 144/84 [place] [employer] Hypertension Guidelines: [place] [employer] Hypertension Guidelines. Normal BP Less than 120/80. Elevated BP 120/80. Hypertension Stage 1: BP 130-139/80-89. Hypertesnion Stage 2: BP 140 or higher/90 or higher. Hypertension Crisis: BP higher than 180/120 Peak Exercise Blood Pressure:: 148/64 - Tobacco - 60-Day Tobacco Program Goals: Complete smoking cessation. Attend education classes. Improve Knowledge Test score Stages of Change:: Action Do you have family support?: Yes Tobacco Use: Non-smoker - Medication Medication reassessment: Yes Pt demonstrates correct technique timing for MDI, Yes Pt demonstrates correct technique timing for DPI, Yes Pt demonstrates correct technique timing for NEB - Diabetes Diabetes:: Yes Insulin dependent injection/pump?: Yes - Heart Failure Documenting weight servando: Yes Core Components - 90 DAYS Core Components - Final Patient Health Questionnaire 60-Day Re-eval Assessment 1. Little interest or pleasure in doing things: Not at all 2. Feeling down, depressed, or hopeless: Not at all 3. Trouble falling or staying asleep, or sleeping too much: Not at all 4. Feeling tired or having little energy: Several days 5. Poor appetite or overeating: Not at all 6. Feeling bad about yourself -- or that you are a failure or have let yourself or your family down: Not at all 7. Trouble concentrating on things, such as reading the newspaper or watching television: Not at all 8. Moving or speaking so slowly that other people could have noticed. Or the opposite - being so fidgety or restless that you have been moving around a lot more than usual: Not at all 9. Thoughts that you would be better off , or of hurting yourself in some way: Not at all How difficult have these problems made it for you to do your work, take care of things at home, or get along with other people?: Not difficult at all Total Score: 1 Knowledge Questionaire (BCKQ) - Information Information: [place] COPD Knowledge Questionnaire (BCKQ) This questionnaire is designed to find out what you know about your lung problem. It should be completed without help form anyone else. This usually take s between 10 and 20 minutes. Your answers will help us to find out what information you need to help you to understand and manage your lung condition. [place]rera the nikolai which you think is the correct answer. Self-Efficacy 60-Day Re-eval Assessment We would like to know how confident you are in doing certain activities. Please select your confidence level for:: Select your confidence level for the following using the scale 1-10 where 1 is not at all confident and 10 is totally confident. Your score is the average of all 6 responses. Fatigue: How confident are you that you can keep the fatigue caused by your disease from interfering with the things you want to do? Select Number: 5 Physical Discomfort or Pain: How confident are you that you can keep the physical discomfort or pain of your disease from interfering with the things you want to do? Select Number: 5 Emotional Distress: How confident are you that you can keep the emotional distress caused by your disease from interfering with the things you want to do? Select Number: 6 Other Symptoms or Health Problems: How confident are you that you can keep other symptoms or health problems from interfering with the things you want to do? Select Number: 6 Different Tasks and Activities: How confident are you that you can do the different tasks and activities needed to manage your health condition so as to reduce your need to see a doctor? Select Number: 6 Medication: How confident are you that you can do things other than just taking medication to reduce how much your illness affects your everyday life? Select Number: 9 Total Score:: 6 Nutrition Survey
[2022-11-29 13:03] VITALS: BP 144/84; BP 148/64; O2SAT 89; BMI 28.4
== END 2022-12-04 23:59 ==
LOC: PR 10:30
PROVIDERS: PCP Family Medicine Geriatric Medicine
DX: J84.112 Idiopathic pulmonary fibrosis (principal)
CPT/HCPCS: 97150; G0239

== ENCOUNTER 2022-12-18 10:38 | Emergency (ER) | payer MEDICARE, SELFPAY ==
[2022-11-29 13:03] VITALS: BMI 28.4
[2022-12-18 10:39] VITALS: BP 190/84; PULSE 71; RESP 16; TEMP 36.2; O2SAT 98; BMI 27.1
--- NOTE | 2022-12-18 10:45 | EKG12_ITS ---
Test Reason : SYNCOPE Blood Pressure : / mmHG Vent. Rate : 070 BPM Atrial Rate : 070 BPM P-R Int : 080 ms QRS Dur : 088 ms QT Int : 366 ms P-R-T Axes : 000 -49 075 degrees QTc Int : 395 ms Sinus rhythm with short TX Left axis deviation Nonspecific ST abnormality Abnormal ECG Confirmed by AGUSTÍN ALLEN, ARIELA ([id number]), newspaper photo editor MIKY ROMAN ([id number]) on 12/20/2022 10:11:06 A M Referred By: HARRIS/BERNA Confirmed By:PAYAM RANDOLPH MD
[2022-12-18 11:00] LABS: Absolute Lymphocyte Count 1.07 X10^3/uL (0.83-4.51); Absolute Neutrophil Count 6.3 X10^3/uL (2.0-7.7); Basophil# 0.04 X10^3/uL; Basophil% 0.5 % (0-1); Hemoglobin 15.5 g/dL (13.0-16.5); Lymphocyte # 1.07 X10^3/ul (0.83-4.51); Lymphocyte % 13.2 % (19-41); Mean Corp Hgb Conc 32.3 g/dL (32-36); Mean Corpuscular Hgb 33.8 pg (27.0-32.0); Mean Corpuscular Volume 104.8 fL (80-94); Mean Platelet Vol. 10.7 fl (6.2-12.0); Monocyte# 0.56 X10^3/uL; Monocyte% 6.9 % (0-10); NRBC Flagged by Analyzer 0 % (0-5); Neutrophil # 6.33 X10^3/uL (2.7-7.7); Neutrophil % 78.4 % (47-70); Platelet Count 131 K/mm3 (150-450); RBC Distribution Width CV 15.1 % (11.6-14.6); RBC Distribution Width SD 58.6 fl (35.1-43.9); Red Blood Count 4.58 M/mm3 (4.6-6.2); White Blood Count 8.1 K/mm3 (4.4-11.0)
--- NOTE | 2022-12-18 11:00 | CT_ITS ---
STUDY: CT CERVICAL SPINE WITHOUT CONTRAST REASON FOR EXAM: Male, 82 years old. Fall RADIATION DOSAGE (If Supplied By Facility): CTDIvol = ( 22.68 ) mGy, DLP = ( 465.77 ) mGycm TECHNIQUE: High resolution transaxial imaging was performed without contrast material. Sagittal and coronal images were reconstructed. Individualized dose optimization techniques were used for this CT. COMPARISON: None FINDINGS: Normal craniovertebral junction. Normal anterior atlantoaxial articulation. Normal odontoid process. Normal cervical lordosis. Normal vertebral bodies and posterior osseous elements. C2-3: Normal endplates. Normal disc height and morphology. Normal central canal and intervertebral neuroforamina. C3-4: Normal endplates. Normal disc height and morphology. Normal central canal and intervertebral neuroforamina. C4-5: Spondylosis. Uncovertebral arthrosis. No significant stenosis seen. C5-6: Mild degree of disc space narrowing. Uncovertebral arthrosis. Facet joint osteoarthritis. C6-7: Mild degree of broad disc space narrowing. Spondylosis. Uncovertebral arthrosis. No significant stenosis seen. C7-T1: Normal endplates. Normal disc height and morphology. Normal central canal and intervertebral neuroforamina. Atherosclerotic plaque formation of the carotid bifurcations. CT/Spine Cervical without Contras IMPRESSION: Multilevel degenerative changes, as described above. Electronically Signed: Brayden Austin MD at 11:23 EDT ,
--- NOTE | 2022-12-18 11:00 | CT_ITS ---
STUDY: CT FACIAL BONES WITHOUT CONTRAST REASON FOR EXAM: Male, 82 years old. Facial trauma RADIATION DOSAGE (If Supplied By Facility): CTDIvol = ( 29.38 ) mGy, DLP = ( 657.65 ) mGycm TECHNIQUE: The patient was scanned in a multi detector CT scanner. Sagittal and coronal images were reconstructed. Individualized dose optimization techniques were used for this CT. COMPARISON: None. FINDINGS: Normal soft tissue structures. Normal orbital wilder and orbital contents. Normal nasal bones and anterior nasal spine. Normal facial bones. There is no demonstrated fracture. Mucosal thickening at the bases of the maxillary sinus bilaterally. CT/Sinus/Facial Bone IMPRESSION: Mucosal thickening of the maxillary sinuses. Electronically Signed: Brayden Austin MD at 11:22 EDT ,
--- NOTE | 2022-12-18 11:00 | CT_ITS ---
STUDY: CT BRAIN WITHOUT CONTRAST REASON FOR EXAM: Male, 82 years old. Head injury due to a fall. RADIATION DOSAGE (If Supplied By Facility): CTDIvol = ( 44.99 ) mGy, DLP = ( 829.85 ) mGycm TECHNIQUE: Transaxial CT imaging of the brain was performed without administration of intravenous contrast material. Individualized dose optimization techniques were used for this CT. COMPARISON: No relevant priors. FINDINGS: Normal soft tissue structures. Normal calvarium. There is mild cerebral atrophy with widening of the extra-axial spaces and ventricular dilatation. There are areas of decreased attenuation within the white matter tracts of the supratentorial brain, consistent with microvascular disease changes. Normal basal ganglia and thalami. Normal brainstem. Normal cerebellum. There is no intracranial hemorrhage. There are no findings of an acute ischemic infarction. Atherosclerotic calcification of the vertebral arteries and cavernous portions of the internal carotid arteries bilaterally. Mucosal thickening at the base of the maxillary sinuses bilaterally. CT/Brain/Head without Contrast IMPRESSION: Chronic involutional changes of the brain. Electronically Signed: Brayden Austin MD at 11:20 EDT ,
--- NOTE | 2022-12-18 11:03 | EX.ED.DYSGE1 ---
HPI History of Present Illness Chief Complaint: Syncope Narrative Narrative: 82-year-old male presenting from the cardiopulmonary rehab lab. Patient was walking on a treadmill and states he felt great. He states he started to feel tired and reached up to push the button to stop and had an episode of syncope falling striking his face. Positive LOC. Patient's said he 1 was not unconscious for very long. He was awake and alert upon awakening. He has some facial wounds on but on the bridge of his nose. He has a skin tear on the left elbow and left forearm. Patient denies visual changes, lightheadedness, severe headache. Patient's states he is back to his baseline. His blood sugar was checked prior to starting and it was 111. After the episode of syncope it was 266. He states that his blood sugar would normally go up when he exercises. He states his blood will typically go down when he is exercising. The documentation here shows his blood pressure going as high as 200/80. Starting at 148/56. Patient denies any chest pain or shortness of breath. [facility] Medical History Anxiety and depression Chronic kidney disease (CKD) Essential (primary) hypertension Hyperlipidemia Hypogonadism Hypothyroidism Premature ventricular contractions Type 2 diabetes mellitus Home Medications pioglitazone 45 mg tablet 45 mg PO DAILY 90 days #90 tabs 08/31/18 [History Last Taken Unknown] sitagliptin phosphate 50 mg tablet (Januvia) 50 mg PO DAILY 08/31/18 [History Last Taken Unknown] testosterone cypionate 200 mg/mL intramuscular oil 100 mg IM QWEEK 28 days #2 mL 08/31/18 [History Last Taken Unknown] aspirin 81 mg tablet,delayed release (Adult Aspirin Regimen) 81 mg PO DAILY 09/02/18 [History Last Taken Unknown] cholecalciferol (vitamin D3) 25 mcg (1,000 unit) tablet 1,000 unit PO DAILY 08/15/20 [History Last Taken Unknown] atenolol 50 mg tablet 25 mg PO DAILY 11/26/22 [History Last Taken Unknown] insulin detemir U-100 100 unit/mL (3 mL) subcutaneous pen (Levemir FlexTouch U-100 Insulin) 15 unit subcut DAILY 11/26/22 [History Last Taken Unknown] levothyroxine 75 mcg tablet 75 mcg PO DAILY 11/26/22 [History Last Taken Unknown] lisinopril 20 mg tablet 10 mg PO DAILY 11/26/22 [History Last Taken Unknown] Allergy/AdvReac Type Severity Reaction Status Date / Time Tetanus Vaccines and Toxoid AdvReac Nausea/Vom/ Verified 11/26/22 10:02 Diarrhea Surgical History History of sinus surgery Social History Smoking Status: Never smoker alcohol intake: never substance use type: does not use caffeine: Yes Type: coffee Number of servings: 1 ROS ROS ED Review of Systems ROS Unobtainable: Denies due to encephalopathy Constitutional Constitutional ED: Denies chills or fever(s) Eyes Eyes: Denies blurry vision or change in vision ENT ENT ED: Reports other Details: Superficial abrasion to bridge of nose. Nasal bridge swelling Cardiovascular Cardiovascular: Denies chest pain or palpitations Respiratory/Chest Respiratory/Chest: Denies cough or dyspnea Gastrointestinal Gastrointestinal: Denies abdominal pain, nausea or vomiting Genitourinary Genitourinary ED: Denies dysuria or hematuria Musculoskeletal Musculoskeletal: Denies back pain, myalgias or neck pain Integumentary Denies abscess Neurologic Neurologic: Denies headache(s) or paresthesias Psychiatric Psychiatric: Denies anxiety or depression EXAM Physical Exam Const Vital Signs: 12/18/22 10:39 12/18/22 10:45 12/18/22 10:54 Temperature 97.2 F L Temperature Source Temporal Pulse Rate 71 Pulse Rate [Lying] Pulse Rate [Sitting (for 1 minute prior to obtaining)] Pulse Rate [Standing (for 1 minute prior to obtaining)] Respiratory Rate 16 Respiratory Effort Normal Non-Labored Respiratory Depth Normal Respiratory Pattern Normal Blood Pressure 190/84 H Blood Pressure [Lying] Blood Pressure [Sitting (for 1 minute prior to obtaining)] Blood Pressure [Standing (for 1 minute prior to obtaining)] Blood Pressure Mean 119 Blood Pressure Mean [Lying] Blood Pressure Mean [Sitting (for 1 minute prior to obtaining)] Blood Pressure Mean [Standing (for 1 minute prior to obtaining)] Pulse Ox 98 Oxygen Delivery Method Nasal Cannula Nasal Cannula Nasal Cannula Oxygen Flow Rate (L/min) 2 2 12/18/22 12:32 12/18/22 14:08 Temperature Temperature Source Pulse Rate 64 Pulse Rate [Lying] 66 Pulse Rate [Sitting (for 1 minute prior to obtaining)] 65 Pulse Rate [Standing (for 1 minute prior to obtaining)] 69 Respiratory Rate 18 Respiratory Effort Respiratory Depth Respiratory Pattern Blood Pressure 178/55 H Blood Pressure [Lying] 149/101 H Blood Pressure [Sitting (for 1 minute prior to obtaining)] 207/72 H Blood Pressure [Standing (for 1 minute prior to obtaining)] 207/73 H Blood Pressure Mean Blood Pressure Mean [Lying] 117 Blood Pressure Mean [Sitting (for 1 minute prior to obtaining)] 117 Blood Pressure Mean [Standing (for 1 minute prior to obtaining)] 117 Pulse Ox 96 Oxygen Delivery Method Oxygen Flow Rate (L/min) Positive well nourished General Appearance ED: NAD; Negative for pallor HEENT Reports moist mucous membranes Eyes PERRL and EOMs intact bilaterally Chest Wall inspection of chest normal Resp normal respiratory effort and clear to auscultation bilaterally Cardio Negative for regular rate or regular rhythm GI normal to inspection, nondistended, normoactive bowel sounds Neuro oriented x3 and CN's II-XII intact bilaterally Sensorium / Orientation: alert Motor Exam: strength 5/5 throughout Psych mental status grossly normal Skin Skin Narrative: Superficial skin tears noted to left elbow, left forearm, right forearm. No deep lacerations. No bony tenderness. General Skin Exam: Negative for jaundice or pallor MDM MDM MDM Narrative Medical decision making narrative: 82-year-old male presenting with an episode of syncope which occurred while he was in respiratory rehab. Patient states he was trying to hit the stop button when he went out. He woke up on the floor. He is got superficial abrasions to the left elbow, left forearm, right forearm. He also has some superficial abrasion at the nasal bridge without any deformity. No nasal septal hematoma. He denies headache, visual complaints. Denies any chest pain before or after. He states that he was feeling short of breath prior to trying antibiotics. CBC to assess white blood cell count, hemoglobin, platelets, differential. BMP to assess renal function, electrolytes, glucose, anion gap. High-sensitivity troponin, EKG to assess for ischemia/dysrhythmia. Chest x-ray obtained to rule out pneumothorax, pneumonia, CHF. Orthostatic vitals were obtained. CT brain, facial bones, cervical spine obtained due to head injury and LOC. Skin tears were cleaned and dressed. Orthostatic vitals were normal and actually his blood pressure goes up when he stands. CT brain, cervical spine, facial bones all within normal limits.'s intact chest x-ray my interpretation shows no acute cardiopulmonary process. Radiologist services and agrees. EKG shows a sinus rhythm at 70 bpm without sign of ischemic change. High-sensitivity troponin initially came back at 12. Delta troponin 31. Patient feeling well. Discussed with Dr. Adams regarding admission versus follow-up as an outpatient because the delta troponin did not quite change 28 only changed by 19. He stated that both of these were actually very low and recommended that patient be an outpatient follow-up. Patient is amenable to this. He was able to ambulate from the ER. His showed concern for him driving home today. I recommend that he did not. Return precautions discussed. Impression: 1. Syncope 2. Closed head injury 3. Skin tear left elbow 4. Skin tear left forearm 5. Skin tear right forearm. 6. Superficial abrasion nasal bridge. Lab Data Attestation: I reviewed the patient's lab results. Labs: Laboratory Results - last 24 hr 12/18/22 12/18/22 12/18/22 10:49 10:49 12:44 WBC 8.1 RBC 4.58 L Hgb 15.5 Hct 48.0 MCV 104.8 H MCH 33.8 H MCHC 32.3 RDW Std Deviation 58.6 H RDW Coeff of Jo 15.1 H Plt Count 131 L MPV 10.7 Immature Gran % (Auto) 1.000 H Neut % (Auto) 78.4 H Lymph % (Auto) 13.2 L [place] % (Auto) 6.9 Eos % (Auto) 0.0 Baso % (Auto) 0.5 Absolute Neuts (auto) 6.3 Absolute Lymphs (auto) 1.07 Nucleated RBC % 0 Sodium 131 L Potassium 4.2 Chloride 96 L Carbon Dioxide 27.0 Anion Gap 8 BUN 27 H Creatinine 1.63 H Estim Creat Clear Calc 38.35 Est GFR (MDRD) Af Amer 52 L Est GFR (MDRD) Non-Af 43 L BUN/Creatinine Ratio 16.6 Glucose 266 H Calcium 9.5 Troponin I High Sens 12 31 Radiography Diagnostic Testing: Clinical Impression(s) from Imaging Studies Brain CT 12/18/22 11:00 IMPRESSION: Chronic involutional changes of the brain. Electronically Signed: Brayden Austin MD at 11:20 EDT , Cervical Spine CT 12/18/22 11:00 IMPRESSION: Multilevel degenerative changes, as described above. Electronically Signed: Brayden Austin MD at 11:23 EDT , Facial/Sinus 12/18/22 11:00 IMPRESSION: Mucosal thickening of the maxillary sinuses. Electronically Signed: Brayden Austin MD at 11:22 EDT , Chest X-Ray 12/18/22 11:07 IMPRESSION: Mild increased markings at the lung bases slightly more prominent at the left lung base. This may represent bibasilar atelectasis. Electronically Signed: Brayden Austin MD at 11:25 EDT , Discharge Plan Triage Chief Complaint: Syncope ED Provider: José Santamaria Dx/Rx/DC Orders Instructions: ED Facial Contusion, ED Skin Avulsion, ED Fainting, Uncertain Cause Prescriptions: No Action aspirin [Adult Aspirin Regimen] 81 mg tablet,delayed release (DR/EC) 81 mg PO DAILY pioglitazone 45 mg tablet 45 mg PO DAILY 90 Days Qty: 90 Januvia 50 mg tablet 50 mg PO DAILY testosterone cypionate 200 mg/mL oil 100 mg IM QWEEK 28 Days Qty: 2 Levemir FlexTouch U100 Insulin 100 unit/mL (3 mL) insulin pen 15 unit SC DAILY cholecalciferol (vitamin D3) 25 mcg (1,000 unit) tablet 1,000 unit PO DAILY Label Comments: TAKE 1 TABLET BY MOUTH ONCE DAILY REPLACE (VITAMIN D2) lisinopril 20 mg tablet 10 mg PO DAILY atenolol 50 mg tablet 25 mg PO DAILY levothyroxine 75 mcg tablet 75 mcg PO DAILY Primary Care Provider: Lane Valentino Chi Referrals: Lane Valentino Chi, MD [Primary Care Provider] - Disposition Disposition: Home, Self Care
--- NOTE | 2022-12-18 11:07 | RAD_ITS ---
STUDY: X-RAY CHEST REASON FOR EXAM: Male, 82 years old. Chest pain TECHNIQUE: Single AP portable view of the chest. COMPARISON: Comparison is made with prior study dated August 25, 2018. FINDINGS: EKG electrodes are seen. Mild increased markings at the lung bases slightly more prominent on the left side suggestive of left basilar atelectasis. There is no demonstrated pleural abnormality. Normal size heart. Normal mediastinum and geovanna. Normal visualized pulmonary arteries. There is atherosclerotic calcification of the aortic arch with tortuosity. There are diffuse degenerative changes of the visualized thoracic spine. There is degenerative osteoarthritis of the bilateral shoulders. There is no demonstrated abnormality of the visualized soft tissue structures of the upper abdomen. RAD/Chest 1 View (Portable) IMPRESSION: Mild increased markings at the lung bases slightly more prominent at the left lung base. This may represent bibasilar atelectasis. Electronically Signed: Brayden Austin MD at 11:25 EDT ,
[2022-12-18 11:13] LABS: Anion Gap 8 (5-15); BUN 27 mg/dL (7-18); BUN/Creat Ratio 16.6 RATIO (10-20); Calcium,Total 9.5 mg/dL (8.5-10.1); Chloride 96 mmol/L (98-107); Creatinine, Serum 1.63 mg/dL (0.70-1.30); EST Glomerular Filtration Rate 43 mL/min (>60); Est Glom Filt Rate - Afr Amer 52 mL/min (>60); Estimated Creatinine Clearance 38.35 ml/min; Glucose 266 mg/dL (74-106); Potassium 4.2 mmol/L (3.5-5.1); Sodium Level 131 mmol/L (136-145); Troponin-I HS (w/2H Reflex) 12 pg/mL (3.0-78.0)
[2022-12-18 12:32] VITALS: BP 149/101; BP 207/72; BP 207/73; PULSE 65; PULSE 66; PULSE 69
[2022-12-18 12:52] LABS: Reflex Troponin-HS? (from REC) Y
[2022-12-18 13:27] LABS: Troponin-I HS 31 pg/mL (3.0-78.0)
[2022-12-18 14:08] VITALS: BP 178/55; PULSE 64; RESP 18; O2SAT 96
[2022-12-21 06:16] LABS: Bedside Glucose 266 mg/dL (74-106)
== END 2022-12-18 14:15 | disposition home or self-care (01) ==
PROVIDERS: Emergency Provider Student in an Organized Health Care Education/Training Program; PCP Family Medicine Geriatric Medicine; Visit Provider Student in an Organized Health Care Education/Training Program
DX: R55 Syncope and collapse (principal); E11.22 Type 2 diabetes mellitus with diabetic chronic kidney disease; Z79.4 Long term (current) use of insulin; S09.90XA Unspecified injury of head, initial encounter; S00.31XA Abrasion of nose, initial encounter; N18.9 Chronic kidney disease, unspecified; S51.801A Unspecified open wound of right forearm, initial encounter; I12.9 Hypertensive chronic kidney disease with stage 1 through stage 4 chronic kidney disease, or unspecified chronic kidney disease; S51.802A Unspecified open wound of left forearm, initial encounter; E78.5 Hyperlipidemia, unspecified; S50.902A Unspecified superficial injury of left elbow, initial encounter; Z79.899 Other long term (current) drug therapy; Z79.82 Long term (current) use of aspirin; E03.9 Hypothyroidism, unspecified; W17.89XA Other fall from one level to another, initial encounter; Y93.A1 Activity, exercise machines primarily for cardiorespiratory conditioning; Y92.89 Other specified places as the place of occurrence of the external cause
CPT/HCPCS: 70450; 70486; 71045; 72125; 80048; 82962; 84484; 85025; 93005; 99285; A4216

== ENCOUNTER 2022-12-25 10:15 | Outpatient (RCR) | payer MEDICARE, SELFPAY ==
[2022-11-29 13:03] VITALS: BMI 28.4
[2022-12-05 00:37] VITALS: BP 144/84; BP 148/64
== END 2023-01-03 23:59 ==
LOC: PR 10:15
PROVIDERS: PCP Family Medicine Geriatric Medicine
DX: J84.112 Idiopathic pulmonary fibrosis (principal)
CPT/HCPCS: 97150; G0239

== ENCOUNTER → 2023-03-17 | Outpatient (CLI) | payer MEDICARE, SELFPAY ==
[2022-11-29 13:03] VITALS: BMI 28.4
[2023-03-17 11:09] LABS: Protein, Urine (Random) 53.3 mg/dL (<11.9); Protein:Creat Ratio 1406 mg/g CRE (0-200)
[2023-03-17 11:13] LABS: Albumin, Serum 3.4 g/dL (3.2-5.0); BUN 28 mg/dL (7-18); Calcium,Total 9.3 mg/dL (8.5-10.1); Chloride 97 mmol/L (98-107); Creatinine, Serum 1.65 mg/dL (0.70-1.30); EST Glomerular Filtration Rate 43 mL/min (>60); Est Glom Filt Rate - Afr Amer 52 mL/min (>60); Glucose 152 mg/dL (74-106); Phosphorus 2.7 mg/dL (2.5-4.9); Potassium 4.1 mmol/L (3.5-5.1); Sodium Level 132 mmol/L (136-145)
== END | disposition home or self-care (01) ==
LOC: POLAB3 09:32
PROVIDERS: PCP Family Medicine Geriatric Medicine; Visit Provider Internal Medicine Nephrology
DX: E11.22 Type 2 diabetes mellitus with diabetic chronic kidney disease (principal); N18.31 Chronic kidney disease, stage 3a
CPT/HCPCS: 36415; 80069; 82570; 84156

== ENCOUNTER → 2023-05-20 | Outpatient (CLI) | payer MEDICARE, SELFPAY ==
[2022-11-29 13:03] VITALS: BMI 28.4
[2023-05-20 14:38] LABS: Absolute Lymphocyte Count 1.04 X10^3/uL (0.83-4.51); Absolute Neutrophil Count 7.4 X10^3/uL (2.0-7.7); Basophil# 0.04 X10^3/uL; Basophil% 0.4 % (0-1); Hematocrit 46.4 % (40-54); Hemoglobin 15.2 g/dL (13.0-16.5); Lymphocyte # 1.04 X10^3/ul (0.83-4.51); Lymphocyte % 11.3 % (19-41); Mean Corp Hgb Conc 32.8 g/dL (32-36); Mean Corpuscular Hgb 34.2 pg (27.0-32.0); Mean Corpuscular Volume 104.3 fL (80-94); Mean Platelet Vol. 10.9 fl (6.2-12.0); Monocyte# 0.73 X10^3/uL; Monocyte% 7.9 % (0-10); NRBC Flagged by Analyzer 0 % (0-5); Neutrophil # 7.37 X10^3/uL (2.7-7.7); Neutrophil % 79.9 % (47-70); Platelet Count 197 K/mm3 (150-450); RBC Distribution Width CV 13.6 % (11.6-14.6); RBC Distribution Width SD 53.5 fl (35.1-43.9); Red Blood Count 4.45 M/mm3 (4.6-6.2); White Blood Count 9.2 K/mm3 (4.4-11.0)
[2023-05-20 14:54] LABS: Vitamin D,25 Hydroxy 60.4 ng/mL
[2023-05-20 15:05] LABS: ALB/GLOB Ratio 0.7 RATIO (0.9-2.4); AST(SGOT) 31 U/L (15-37); Alanine Aminotransfer ALT/SGPT 25 U/L (16-61); Albumin, Serum 3.3 g/dL (3.2-5.0); Alkaline Phosphatase 115 U/L (45-117); Anion Gap 7 (5-15); BUN 31 mg/dL (7-18); BUN/Creat Ratio 17.2 RATIO (10-20); Calcium,Total 9.2 mg/dL (8.5-10.1); Chloride 93 mmol/L (98-107); EST Glomerular Filtration Rate 39 mL/min (>60); Est Glom Filt Rate - Afr Amer 47 mL/min (>60); Globulin 4.9 g/dL (2.2-4.2); Glucose 243 mg/dL (74-106); Potassium 4.9 mmol/L (3.5-5.1); Protein, Total 8.2 g/dL (6.4-8.2); Sodium Level 130 mmol/L (136-145); Thyroid Stim Hormone (TSH) 2.49 uIU/mL (0.358-3.74)
[2023-05-20 15:19] LABS: Hemoglobin A1c 6.4 % (3.8-5.6)
== END | disposition home or self-care (01) ==
LOC: POLAB3 13:22
PROVIDERS: PCP Family Medicine Geriatric Medicine; Visit Provider Family Medicine Geriatric Medicine
DX: I11.0 Hypertensive heart disease with heart failure (principal); E11.65 Type 2 diabetes mellitus with hyperglycemia; E11.22 Type 2 diabetes mellitus with diabetic chronic kidney disease; N18.31 Chronic kidney disease, stage 3a; E55.9 Vitamin D deficiency, unspecified
CPT/HCPCS: 36415; 80053; 82306; 83036; 84443; 85025

== ENCOUNTER → 2023-11-24 | Outpatient (CLI) | payer MEDICARE, SELFPAY ==
[2022-11-29 13:03] VITALS: BMI 28.4
[2023-11-24 15:53] LABS: Absolute Lymphocyte Count 0.74 X10^3/uL (0.83-4.51); Absolute Neutrophil Count 6.1 X10^3/uL (2.0-7.7); Basophil# 0.04 X10^3/uL; Basophil% 0.5 % (0-1); Hematocrit 45.4 % (40-54); Hemoglobin 14.8 g/dL (13.0-16.5); Lymphocyte # 0.74 X10^3/ul (0.83-4.51); Mean Corp Hgb Conc 32.6 g/dL (32-36); Mean Corpuscular Hgb 34.1 pg (27.0-32.0); Mean Corpuscular Volume 104.6 fL (80-94); Mean Platelet Vol. 10.5 fl (6.2-12.0); Monocyte# 0.51 X10^3/uL; Monocyte% 6.9 % (0-10); NRBC Flagged by Analyzer 0 % (0-5); Neutrophil # 6.09 X10^3/uL (2.7-7.7); Neutrophil % 82.2 % (47-70); Platelet Count 124 K/mm3 (150-450); RBC Distribution Width CV 15.2 % (11.6-14.6); RBC Distribution Width SD 59.5 fl (35.1-43.9); Red Blood Count 4.34 M/mm3 (4.6-6.2); White Blood Count 7.4 K/mm3 (4.4-11.0)
[2023-11-24 16:12] LABS: Vitamin D,25 Hydroxy 54.1 ng/mL
[2023-11-24 16:30] LABS: ALB/GLOB Ratio 0.8 RATIO (0.9-2.4); AST(SGOT) 28 U/L (15-37); Alanine Aminotransfer ALT/SGPT 21 U/L (16-61); Albumin, Serum 3.4 g/dL (3.2-5.0); Alkaline Phosphatase 141 U/L (45-117); Anion Gap 5 (5-15); BUN 27 mg/dL (7-18); BUN/Creat Ratio 16.1 RATIO (10-20); Calcium,Total 9.5 mg/dL (8.5-10.1); Chloride 92 mmol/L (98-107); Creatinine, Serum 1.68 mg/dL (0.70-1.30); EST Glomerular Filtration Rate 42 mL/min (>60); Est Glom Filt Rate - Afr Amer 50 mL/min (>60); Globulin 4.4 g/dL (2.2-4.2); Glucose 235 mg/dL (74-106); Potassium 4.3 mmol/L (3.5-5.1); Protein, Total 7.8 g/dL (6.4-8.2); Sodium Level 129 mmol/L (136-145); Thyroid Stim Hormone (TSH) 2.97 uIU/mL (0.358-3.74)
== END | disposition home or self-care (01) ==
LOC: LAB 14:10
PROVIDERS: PCP Family Medicine Geriatric Medicine; Referring Provider Family Medicine Geriatric Medicine; Visit Provider Family Medicine Geriatric Medicine
DX: E11.65 Type 2 diabetes mellitus with hyperglycemia (principal); I10 Essential (primary) hypertension; E55.9 Vitamin D deficiency, unspecified
CPT/HCPCS: 36415; 80053; 82306; 84443; 85025

== ENCOUNTER 2024-02-16 13:48 | Inpatient (IN) | payer MEDICARE, SELFPAY ==
[2022-11-29 13:03] VITALS: BMI 28.4
[2024-02-16] VITALS (12 sets, daily range): BP systolic 144–175; BP diastolic 54–76; PULSE 57–66; RESP 16–22; TEMP 36.2–36.7; O2SAT 79–100; BMI 27.1; BMI 24.8
--- NOTE | 2024-02-16 14:54 | EKG12_ITS ---
Test Reason : SYNCOPE/SOB Blood Pressure : / mmHG Vent. Rate : 065 BPM Atrial Rate : 000 BPM P-R Int : 000 ms QRS Dur : 092 ms QT Int : 408 ms P-R-T Axes : 000 -43 015 degrees QTc Int : 424 ms NSR Left axis deviation Abnormal ECG Confirmed by JADIEL ALLEN, CHIKIS ([id number]), assignment editor KHLOE DUTTA ([id number]) on 02/18/2024 9:39:18 AM Referred By: RACHEL/SANTHOSH Confirmed By:CHIKIS DUVALL MD
--- NOTE | 2024-02-16 14:56 | EX.ED.DYSGE1 ---
HPI History of Present Illness Chief Complaint: Syncope Informant: patient Narrative Narrative: Patient is an 83-year-old male with history of type 2 diabetes mellitus, CKD, hypertension, hyperlipidemia, hypothyroid and idiopathic pulmonary fibrosis (wears 2 L of oxygen at night and oxygen in the day as needed) presenting for multiple episodes of syncope. Patient most recently had an episode of syncope yesterday. He states he had been on the riding lawnmower mowing the lawn for just couple minutes. He walked into the garage and had to manually close the garage door. He then started walking through the garage again leaned against the model builder and passed out. Family found him on the ground. Patient has had multiple episodes of syncope over this last year, first on 09/30 another on 01/19 where he sustained a skin tear to his left forearm and then again yesterday. This time he landed on his right side and has bruising to his right chest wall and has some mild pain of his right shoulder as well as bruising to his right elbow/forearm. He states that the pain is shoulders and better today than it was yesterday. Called his PCP who said he should come to the ER. Patient is chronic dyspnea on exertion which is unchanged. States his home O2 fluctuates between the low 80s up to the 90s. He sees with Dr. Mendoza local to sit down to take a couple breaths and will come back up. He has a cough every morning but no significant change in his cough. He does have lower extreme edema as may be slightly worse. Does not clear patient is taking his Lasix every day as he worries about his kidneys.. Patient states he will get stiffness or pain/tightness in the back of his neck and then that will make him feel like his head is full and he is lightheaded. That is when he will have a syncopal episode. Denies any room spinning sensation. [facility] Medical History Chronic hyponatremia Chronic hypoxic respiratory failure Anxiety and depression Hypogonadism Hypothyroidism Chronic kidney disease (CKD) Hyperlipidemia Essential (primary) hypertension Type 2 diabetes mellitus Premature ventricular contractions Home Medications ?Medication ?Instructions ?Recorded ?Last Taken ?Type pioglitazone 45 mg tablet 45 mg PO DAILY 90 days #90 tabs 08/31/18 Unknown History sitagliptin phosphate 50 mg tablet 50 mg PO DAILY 08/31/18 Unknown History (Januvia) testosterone cypionate 200 mg/mL 100 mg IM QWEEK 28 days #2 mL 08/31/18 Unknown History intramuscular oil aspirin 81 mg tablet,delayed 81 mg PO DAILY 09/02/18 Unknown History release (Adult Aspirin Regimen) cholecalciferol (vitamin D3) 25 1,000 unit PO DAILY 08/15/20 Unknown History mcg (1,000 unit) tablet insulin detemir U-100 100 unit/mL 15 unit subcut DAILY 11/26/22 Unknown History (3 mL) subcutaneous pen (Levemir FlexTouch U-100 Insulin) levothyroxine 75 mcg tablet 75 mcg PO DAILY 11/26/22 Unknown History lisinopril 20 mg tablet 10 mg (1/2 x 20 mg) PO DAILY #45 02/28/23 Unknown Rx tabs atenolol 50 mg tablet See Rx Instructions .Route 05/28/23 Unknown Rx .COMPLEX #90 tabs furosemide 20 mg tablet (Lasix) 20 mg PO DAILY 11/28/23 Unknown History treprostinil 1.74 mg/2.9 mL (0.6 10 inh inhalation Q4H 02/16/24 Unknown History mg/mL) solution for nebulization (Tyvaso) Allergy/AdvReac Type Severity Reaction Status Date / Time Duvabgf-YMT-VuB Reductase AdvReac Intermediate Other Verified 02/16/24 19:40 Inhibitor (Istzmdn-Nwt-Kvw Reductase Inhibitor) Tetanus Vaccines and Toxoid AdvReac Nausea/Vom/ Verified 11/28/23 11:25 Diarrhea Surgical History History of sinus surgery Social History Smoking Status: Never smoker alcohol intake: never substance use type: does not use caffeine: Yes Type: coffee Number of servings: 1 ROS ROS ED Constitutional Constitutional ED: Denies chills or fever(s) Cardiovascular Cardiovascular: Denies chest pain Respiratory/Chest Respiratory/Chest: Reports cough, dyspnea on exertion and other Details: chronic respiratory symptoms, no change ; Denies sputum Gastrointestinal Gastrointestinal: Denies abdominal pain, nausea or vomiting Musculoskeletal Musculoskeletal: Reports neck pain and other Details: right shoulder pain ; Denies arthralgias or myalgias Integumentary Reports other Details: bruising to right elbow and right upper chest wall Neurologic Neurologic: Denies headache(s), paresthesias or weakness Hematologic/Lymphatic Hematologic/Lymphatic: Denies easy bruising or lymphadenopathy EXAM Physical Exam Const Vital Signs: 02/16/24 13:48 02/16/24 13:49 02/16/24 14:27 Temperature 97.2 F L Temperature Source Temporal Pulse Rate 59 L Pulse Rate [Lying] Pulse Rate [Sitting (for 1 minute prior to obtaining)] Pulse Rate [Standing (for 1 minute prior to obtaining)] Respiratory Rate 19 H Respiratory Effort Normal Non-Labored Respiratory Pattern Normal Blood Pressure 150/62 H Blood Pressure [Lying] Blood Pressure [Sitting (for 1 minute prior to obtaining)] Blood Pressure [Standing (for 1 minute prior to obtaining)] Blood Pressure Mean 91 Blood Pressure Mean [Lying] Blood Pressure Mean [Sitting (for 1 minute prior to obtaining)] Blood Pressure Mean [Standing (for 1 minute prior to obtaining)] Pulse Ox 79 97 Oxygen Delivery Method Room Air Nasal Cannula Oxygen Flow Rate (L/min) 2 02/16/24 14:27 02/16/24 14:57 02/16/24 14:59 Temperature Temperature Source Pulse Rate 59 L Pulse Rate [Lying] 66 Pulse Rate [Sitting (for 1 minute prior to obtaining)] 64 Pulse Rate [Standing (for 1 minute prior to obtaining)] 66 Respiratory Rate 22 H Respiratory Effort Normal Non-Labored Respiratory Pattern Blood Pressure 157/61 H Blood Pressure [Lying] 154/64 H Blood Pressure [Sitting (for 1 minute prior to obtaining)] 154/62 H Blood Pressure [Standing (for 1 minute prior to obtaining)] 144/54 H Blood Pressure Mean 93 Blood Pressure Mean [Lying] 94 Blood Pressure Mean [Sitting (for 1 minute prior to obtaining)] 92 Blood Pressure Mean [Standing (for 1 minute prior to obtaining)] 84 Pulse Ox 92 Oxygen Delivery Method Nasal Cannula Oxygen Flow Rate (L/min) 1 02/16/24 16:00 02/16/24 17:00 02/16/24 18:00 Temperature Temperature Source Pulse Rate 59 L 57 L 59 L Pulse Rate [Lying] Pulse Rate [Sitting (for 1 minute prior to obtaining)] Pulse Rate [Standing (for 1 minute prior to obtaining)] Respiratory Rate 18 18 18 Respiratory Effort Respiratory Pattern Blood Pressure 173/76 H 157/57 H 175/61 H Blood Pressure [Lying] Blood Pressure [Sitting (for 1 minute prior to obtaining)] Blood Pressure [Standing (for 1 minute prior to obtaining)] Blood Pressure Mean 108 90 99 Blood Pressure Mean [Lying] Blood Pressure Mean [Sitting (for 1 minute prior to obtaining)] Blood Pressure Mean [Standing (for 1 minute prior to obtaining)] Pulse Ox 99 95 99 Oxygen Delivery Method Room Air Room Air Nasal Cannula Oxygen Flow Rate (L/min) 2 Positive well nourished and well developed General Appearance ED: well developed and NAD HEENT Reports moist mucous membranes Eyes PERRL Neck supple and no JVD Chest Wall inspection of chest normal and palpation of chest normal Resp normal respiratory effort Resp Narrative: Coarse breath sounds at the bases bilaterally. No increased work of breathing. Auscultation: Negative for rhonchi or wheezes Cardio regular rate and regular rhythm GI normal to inspection, nondistended, normoactive bowel sounds and non-tender Extremity normal to inspection General Extremety ED: Negative for edema or tenderness General Extremity: Negative for edema Neuro oriented x3 and no sensory deficits noted Sensorium / Orientation: alert Motor Exam: Negative for general weakness Psych mental status grossly normal Skin Skin Narrative: Ecchymosis to the right elbow. Healing skin tear/abrasion on the left forearm. Area of ecchymosis to the right anterior lateral chest wall around approximately ribs 3 and 4 MDM MDM MDM Narrative Medical decision making narrative: Patient evaluated for syncopal episode occurred yesterday. While in the ER patient is intermittently hypoxic. He is going down into the 70s on room air and is requiring 2 L of oxygen. Patient normally only wears oxygen as needed and 2 L at night. I am not sure how much of this is acute as I think he is pretty noncompliant with his oxygen at home when he states he regularly goes out into the low 80s. Cardiopulmonary workup as well as looking for metabolic cause of syncope is obtained. He is hyponatremic with a sodium of 124. Creatinine mildly elevated at 1.5 which is near his baseline. BNP is elevated however while he does have significant lower extremity edema this could also be elevated due to his pulmonary fibrosis. Chest x-ray viewed by myself as well as radiology does not show any acute process but shows interstitial prominence. As patient does not have any fever or leukocytosis lower suspicion for pneumonia do not think antibiotics are indicated. Given his syncope and concerned that could be cardiogenic in nature as well as hyponatremia will admit for further evaluation. Family member is concerned about possible vestibular insufficiency as a cause of his symptoms. Given that he has baseline CKD I do not want to perform a CTA especially as he does not have any focal vestibular symptoms at this time and denies any vertigo. This is related however to accepting physician, Dr. Elizabeth. Patient purnima hemodynamically stable at time of disposition for the medical floor. Lab Data Attestation: I reviewed the patient's lab results. Labs: Laboratory Results - last 24 hr 02/16/24 14:36 WBC 8.4 RBC 3.52 L Hgb 12.3 L Hct 36.8 L MCV 104.5 H MCH 34.9 H MCHC 33.4 RDW Std Deviation 56.5 H RDW Coeff of Jo 14.9 H Plt Count 120 L MPV 10.6 Immature Gran % (Auto) 0.700 Neut % (Auto) 85.9 H Lymph % (Auto) 6.0 L [place] % (Auto) 7.2 Eos % (Auto) 0.0 Baso % (Auto) 0.2 Absolute Neuts (auto) 7.2 Absolute Lymphs (auto) 0.50 L Nucleated RBC % 0 Sodium 124 L Potassium 4.2 Chloride 90 L Carbon Dioxide 27.0 Anion Gap 7 BUN 21 H Creatinine 1.50 H Estim Creat Clear Calc 40.96 Est GFR (MDRD) Af Amer 57 L Est GFR (MDRD) Non-Af 47 L BUN/Creatinine Ratio 14.0 Glucose 185 H Calcium 9.0 Total Creatine Kinase 121 Troponin I High Sens 18 B-Natriuretic Peptide 481.3 H Radiography Diagnostic Testing: Clinical Impression(s) from Imaging Studies Chest X-Ray 02/16/24 16:00 IMPRESSION: Interstitial prominence. Electronically Signed: Russell Young DO at 16:53 EDT Reading Location ID and State: [facility] / [place] Tel [phone], Service support , Rhythm Strip Rhythm Strip: Sinus Rhythm Rate: 65 Ectopy: None EKG Initial EKG: Attestation: I personally reviewed and interpreted this EKG as follows: Interpretation: Sinus Rhythm Comments: Normal sinus rhythm rate of 65 bpm Left axis deviation Normal intervals Normal ST segments Patient now has a T wave inversion in lead III and some slight flattening of T wave in aVF compared to prior EKG on 12/18/2022 Discharge Plan Dx/Rx/DC Orders Clinical Impression: Syncope, Falls, Acute hyponatremia, Elevated brain natriuretic peptide (BNP) level, Lower extremity edema Disposition Disposition: Acute Care Hospital [facility] Discharge Date/Time: 02/16/24 19:21
[2024-02-16 15:30] LABS: Absolute Neutrophil Count 7.2 X10^3/uL (2.0-7.7); Basophil# 0.02 X10^3/uL; Basophil% 0.2 % (0-1); Hematocrit 36.8 % (40-54); Hemoglobin 12.3 g/dL (13.0-16.5); Mean Corp Hgb Conc 33.4 g/dL (32-36); Mean Corpuscular Hgb 34.9 pg (27.0-32.0); Mean Corpuscular Volume 104.5 fL (80-94); Mean Platelet Vol. 10.6 fl (6.2-12.0); Monocyte% 7.2 % (0-10); NRBC Flagged by Analyzer 0 % (0-5); Neutrophil # 7.17 X10^3/uL (2.7-7.7); Neutrophil % 85.9 % (47-70); POSITIVE DIFFERENTIAL YES; Platelet Count 120 K/mm3 (150-450); RBC Distribution Width CV 14.9 % (11.6-14.6); RBC Distribution Width SD 56.5 fl (35.1-43.9); Red Blood Count 3.52 M/mm3 (4.6-6.2); White Blood Count 8.4 K/mm3 (4.4-11.0)
[2024-02-16 15:50] LABS: Anion Gap 7 (5-15); BUN 21 mg/dL (7-18); Chloride 90 mmol/L (98-107); EST Glomerular Filtration Rate 47 mL/min (>60); Est Glom Filt Rate - Afr Amer 57 mL/min (>60); Estimated Creatinine Clearance 40.96 ml/min; Glucose 185 mg/dL (74-106); Potassium 4.2 mmol/L (3.5-5.1); Sodium Level 124 mmol/L (136-145); Troponin-I HS 18 pg/mL (3.0-78.0)
[2024-02-16 15:53] LABS: BNP,B-Type NATRIURETIC PEPTIDE 481.3 pg/mL (0-100)
[2024-02-16 15:58] LABS: CPK Total, Creatine Kinase 121 U/L (39-308)
--- NOTE | 2024-02-16 16:00 | RAD_ITS ---
INDICATION: sob EXAMINATION/TECHNIQUE: X-RAY - XR Chest 2 Views COMPARISON: FINDINGS: LINES/DEVICES: None. LUNGS: No consolidation, edema or effusion. Slightly elevated left hemidiaphragm. Interstitial prominence. No pneumothorax. MEDIASTINUM AND CARDIOVASCULAR STRUCTURES: Cardiac silhouette not enlarged. Central airways and mediastinal contour are unremarkable. BONES AND SOFT TISSUES: Degenerative changes. RAD/Chest PA and Lateral IMPRESSION: Interstitial prominence. Electronically Signed: Russell Young DO at 16:53 EDT ,
--- NOTE | 2024-02-16 17:57 | NURSING ---
PCU AVEL SYNCOPE, HYPONATREMIA
--- NOTE | 2024-02-16 18:17 | ECHOCS_ITS ---
Reason For Study: SYNCOPE Procedure This was a 2D Doppler, Color Flow transthoracic echocardiogram. The study was technically difficult. Contrast injection was performed. Exam performed portable in patient room. Left Ventricle Normal LV size. D shaped septum in diastole. Left ventricular systolic function is normal. The left ventricular ejection fraction is 60 %. No regional wall motion abnormalities noted. Right Ventricle Normal RV size. Normal systolic function. Atria Normal left atrium. Normal right atrium. Mitral Valve Normal mitral valve. Tricuspid Valve Normal tricuspid valve. Moderate (2+) tricuspid valve insufficiency. Pulmonary artery systolic pressure is 85 mmHg. Moderate pulmonary hypertension. Aortic Valve Trisinus/trileaflet aortic valve. Mild focal aortic valve calcification. Mild (1+) aortic valve insufficiency. Great Vessels Normal aortic root. The pulmonary artery is normal size. Inferior vena cava collapse with respiration. Pericardium/Pleural No pericardial effusion. Medication Diluted definity 2ml given slow IV push to enhance endocardial definition. MMode/2D Measurements & Calculations LVIDd: 5.0 cm IVSd: 1.0 cm LVOT diam: 2.0 cm LVIDs: 3.4 cm LVPWd: 0.93 cm LVOT area: 3.1 cm2 RVDd: 3.2 cm FS: 31.6 % Ao root diam: 3.0 cm LAV(MOD-bp): 42.2 ml LVAd ap4: 27.8 cm2 LAV(MOD-bp) Indexed: 20.3 ml/m2 LVLd ap4: 7.1 cm LAV(MOD-sp2): 41.1 ml EDV(MOD-sp4): 87.6 ml LAV(MOD-sp4): 38.1 ml EDV(sp4-el): 92.1 ml LVAs ap4: 17.6 cm2 LVLs ap4: 6.9 cm ESV(MOD-sp4): 37.5 ml ESV(sp4-el): 38.4 ml EF(MOD-sp4): 57.2 % EF(sp4-el): 58.3 % LVAd ap2: 25.0 cm2 SV(MOD-sp4): 50.1 ml SV(MOD-sp2): 37.2 ml LVLd ap2: 7.2 cm EDV(MOD-sp2): 70.4 ml EDV(sp2-el): 73.7 ml LVAs ap2: 14.8 cm2 LVLs ap2: 5.5 cm ESV(MOD-sp2): 33.3 ml ESV(sp2-el): 33.6 ml EF(MOD-sp2): 52.8 % SV(sp4-el): 53.7 ml LA dimension(2D): 3.9 cm LA A4 area: 16.3 cm2 RA A4 area: 15.3 cm2 TAPSE: 0.93 cm Doppler Measurements & Calculations Lat Peak E' Wolf: 5.0 cm/sec Med Peak E' Wolf: 4.2 cm/sec Ao V2 max: 171.7 cm/sec Ao max P.8 mmHg Ao V2 mean: 113.4 cm/sec Ao mean P.8 mmHg Ao V2 VTI: 35.9 cm AV (velocity ratio): 0.70 WESLEY(I,D): 2.2 cm2 WESLEY(V,D): 2.0 cm2 AI max wolf: 447.7 cm/sec LV V1 max: 112.5 cm/sec SV(LVOT): 77.3 ml AI max P.2 mmHg LV V1 max P.1 mmHg AI dec slope: 346.6 cm/sec2 LV V1 mean P.7 mmHg AI P1/2t: 378.3 msec LV V1 mean: 78.7 cm/sec LV V1 VTI: 25.1 cm PA V2 max: 78.3 cm/sec TR max wolf: 445.2 cm/sec PA max PG (full): 1.5 mmHg TR max P.3 mmHg ECHO/Echo Complete W/ Contrast Interpretation Summary Normal LV size. Left ventricular systolic function is normal. The left ventricular ejection fraction is 60 %. D shaped septum in diastole. Mild (1+) aortic valve insufficiency. Pulmonary artery systolic pressure is 85 mmHg. Moderate pulmonary hypertension. Ordering Physician: Sandra Elizabeth Referring Physician: Lane Valentino Chi Performed By: Yeny López RDCS
--- NOTE | 2024-02-16 18:19 | HP.PCM.HOS_ITS ---
[facility] - General General Date of Admission: 02/16/24 Date of Service: 02/16/24 Chief Complaint: Syncope HPI Narrative EVELYN SANTOS, is a 83 M who presented to the emergency department [facility] on 02/16/2024 following a syncopal episode. The patient has had multiple syncopal episodes over the last several days. Upon further discussion with regards to his syncopal episodes, each episode seems to happen after he was exerting himself and not wearing oxygen. The patient is to wear 2 L of oxygen with exertion per baseline orders for his history of pulmonary hypertension and pulmonary fibrosis. He also reports some worsening swelling in his lower extremities over the last couple days as well. He denies any significant shortness of breath but does not check his pulse ox regularly. Family was markedly concerned about vertebral insufficiency as one of his daughters is a nurse and was requesting carotid and vertebral Dopplers to be performed. At the time of my evaluation, the patient denied any significant issues that were acute and was more concerned about his , who has chronic disability. His syncopal episode today occurred after he had been on his riding lawnmower mowing the lawn and he walked into the garage and had to manually close the garage door then he started walking through the garage again and lean against the lawnmower and passed out. He admitted not wearing oxygen at that time. Family found him on the ground. He does report he had a recent right heart catheterization in December at [facility] and that he is to have an upcoming repeat echocardiogram as well for his pulmonary medicine physician. He follows at baseline with Dr. Siddiqui at [facility] in [place] and follows over at [facility] with a pulmonary hypertension specialist- Dr. Ellis. Vital signs on presentation showed temperature of 97.2, heart rate 59, respiratory rate 19, blood pressure was 150/62 and pulse ox on room air was 79% with a pulse ox of 97% on 2 L nasal cannula. Orthostatic vitals were performed and were unremarkable. Oxygen was subsequently weaned to room air and was 99%. His CBC was overall unremarkable other than thrombocytopenia 120,000 which is chronic and stable. His chemistry panel showed hyponatremia with a sodium of 124 however a bit of his baseline appears to run between 129 and 133. His BUN was 21 and his serum creatinine was 1.50 both below his baseline of 1.6-1.8. Patient did not know he had not been taking his Lasix regularly as of late. Glucose was 185. Troponin was normal but BNP was 481.3. Chest x-ray showed interstitial prominence and a slightly elevated left hemidiaphragm but was otherwise unremarkable. [facility] Medical History Chronic hyponatremia Chronic hypoxic respiratory failure Anxiety and depression Hypogonadism Hypothyroidism Chronic kidney disease (CKD) Hyperlipidemia Essential (primary) hypertension Type 2 diabetes mellitus Premature ventricular contractions Home Medications ?Medication ?Instructions ?Recorded ?Last Taken ?Type pioglitazone 45 mg tablet 45 mg PO DAILY 90 days #90 tabs 08/31/18 Unknown History sitagliptin phosphate 50 mg tablet 50 mg PO DAILY 08/31/18 Unknown History () testosterone cypionate 200 mg/mL 100 mg IM QWEEK 28 days #2 mL 08/31/18 Unknown History intramuscular oil aspirin 81 mg tablet,delayed 81 mg PO DAILY 09/02/18 Unknown History release (Adult Aspirin Regimen) cholecalciferol (vitamin D3) 25 1,000 unit PO DAILY 08/15/20 Unknown History mcg (1,000 unit) tablet insulin detemir U-100 100 unit/mL 15 unit subcut DAILY 11/26/22 Unknown History (3 mL) subcutaneous pen (Levemir FlexTouch U-100 Insulin) levothyroxine 75 mcg tablet 75 mcg PO DAILY 11/26/22 Unknown History lisinopril 20 mg tablet 10 mg (1/2 x 20 mg) PO DAILY #45 02/28/23 Unknown Rx tabs atenolol 50 mg tablet See Rx Instructions .Route 05/28/23 Unknown Rx .COMPLEX #90 tabs furosemide 20 mg tablet (Lasix) 20 mg PO DAILY 11/28/23 Unknown History treprostinil 1.74 mg/2.9 mL (0.6 10 inh inhalation Q4H 02/16/24 Unknown History mg/mL) solution for nebulization (Tyvaso) Allergy/AdvReac Type Severity Reaction Status Date / Time Mjuvluw-HTN-HvY Reductase AdvReac Intermediate Other Verified 02/16/24 19:40 Inhibitor (Xnfsnqj-Clr-Drv Reductase Inhibitor) Tetanus Vaccines and Toxoid AdvReac Nausea/Vom/ Verified 11/28/23 11:25 Diarrhea Surgical History History of sinus surgery Social History Smoking Status: Never smoker alcohol intake: never substance use type: does not use caffeine: Yes Type: coffee Number of servings: 1 ROS Constitutional Constitutional: Denies anorexia, change in weight, chills, fatigue, fever(s), malaise, night sweats, weakness or other Eyes Eyes: Denies blurry vision, change in eye color, change in vision, discharge from eye(s), double vision, erythema, eye pain, loss of vision or other ENT HEENT: Reports abnormal hearing and hearing loss; Denies dysphagia, ear pain, epistaxis, headache(s), nasal congestion, nasal discharge, post nasal drip, sinus pressure, sore throat or other Cardiovascular Cardiovascular: Denies chest pain, claudication, dyspnea on exertion, edema, lightheadedness, orthopnea, palpitations, paroxysmal nocturnal dyspnea, rapid heart rate, syncope or other Respiratory/Chest Respiratory/Chest: Denies cough, dyspnea, excessive phlegm production, hemoptysis, productive cough, shortness of breath at rest, shortness of breath with exertion, wheezing or other Gastrointestinal Gastrointestinal: Denies abdominal pain, coffee ground emesis, constipation, diarrhea, dyspepsia, hematemesis, hematochezia, loose stools, melena, nausea, vomiting or other Genitourinary Genitourinary: Reports nocturia and urinary hesitancy; Denies burning urination, difficulty urinating, dysuria, hematuria, urinary frequency, urinary incontinence, urinary urgency or other Musculoskeletal Musculoskeletal: Denies arthralgias, back pain, joint pain, joint stiffness, joint swelling, myalgias, neck pain or other Neurologic Neurologic: Reports syncope; Denies abnormal gait, abnormal speech, confusion, disequilibrium, dizziness, focal weakness, headache(s), numbness, paresthesias, seizure-like activity, seizures, tingling, tremor(s) or other Psychiatric Psychiatric: Denies anxiety, depression, homicidal ideation, suicidal ideation or other Endocrine Endocrinology: Denies change in body appearance, cold intolerance, excessive sweating, heat intolerance, polydipsia, polyuria or other Hematologic/Lymphatic Hematologic/Lymphatic: Reports easy bruising; Denies anemia, easy bleeding, lymphadenopathy or other Allergic/Immunologic Allergic/Immunologic: Denies rhinitis, hives, eczemia, asthma or other Vital Signs Vital Signs Vital Signs: 02/16/24 13:48 02/16/24 13:49 02/16/24 14:27 Temperature 97.2 F L Temperature Source Temporal Pulse Rate 59 L Pulse Rate [Lying] Pulse Rate [Sitting (for 1 minute prior to obtaining)] Pulse Rate [Standing (for 1 minute prior to obtaining)] Respiratory Rate 19 H Respiratory Effort Normal Non-Labored Respiratory Pattern Normal Blood Pressure 150/62 H Blood Pressure [Lying] Blood Pressure [Sitting (for 1 minute prior to obtaining)] Blood Pressure [Standing (for 1 minute prior to obtaining)] Blood Pressure Mean 91 Blood Pressure Mean [Lying] Blood Pressure Mean [Sitting (for 1 minute prior to obtaining)] Blood Pressure Mean [Standing (for 1 minute prior to obtaining)] Pulse Ox 79 97 Oxygen Delivery Method Room Air Nasal Cannula Oxygen Flow Rate (L/min) 2 02/16/24 14:27 02/16/24 14:57 02/16/24 14:59 Temperature Temperature Source Pulse Rate 59 L Pulse Rate [Lying] 66 Pulse Rate [Sitting (for 1 minute prior to obtaining)] 64 Pulse Rate [Standing (for 1 minute prior to obtaining)] 66 Respiratory Rate 22 H Respiratory Effort Normal Non-Labored Respiratory Pattern Blood Pressure 157/61 H Blood Pressure [Lying] 154/64 H Blood Pressure [Sitting (for 1 minute prior to obtaining)] 154/62 H Blood Pressure [Standing (for 1 minute prior to obtaining)] 144/54 H Blood Pressure Mean 93 Blood Pressure Mean [Lying] 94 Blood Pressure Mean [Sitting (for 1 minute prior to obtaining)] 92 Blood Pressure Mean [Standing (for 1 minute prior to obtaining)] 84 Pulse Ox 92 Oxygen Delivery Method Nasal Cannula Oxygen Flow Rate (L/min) 1 02/16/24 16:00 02/16/24 17:00 Temperature Temperature Source Pulse Rate 59 L 57 L Pulse Rate [Lying] Pulse Rate [Sitting (for 1 minute prior to obtaining)] Pulse Rate [Standing (for 1 minute prior to obtaining)] Respiratory Rate 18 18 Respiratory Effort Respiratory Pattern Blood Pressure 173/76 H 157/57 H Blood Pressure [Lying] Blood Pressure [Sitting (for 1 minute prior to obtaining)] Blood Pressure [Standing (for 1 minute prior to obtaining)] Blood Pressure Mean 108 90 Blood Pressure Mean [Lying] Blood Pressure Mean [Sitting (for 1 minute prior to obtaining)] Blood Pressure Mean [Standing (for 1 minute prior to obtaining)] Pulse Ox 99 95 Oxygen Delivery Method Room Air Room Air Oxygen Flow Rate (L/min) Weight Weight: 90.9 kg Body Mass Index (BMI) 27.1 Physical Exam Const alert, oriented x3, no apparent distress, average body habitus and well nourished; Negative for healthy appearing Constitutional Narrative: Older, white male, sitting in bed, appears comfortable and nontoxic, very pleasant General Appearance: cooperative HEENT normocephalic, head/scalp atraumatic and moist oral mucous membranes HEENT Narrative: Dentition is poor, Mallampati is 2, no thrush, moderate hearing loss noted Eyes PERRL, EOMs intact bilaterally and conjunctivae normal Eyes Narrative: No scleral icterus Neck no lymphadenopathy, supple and no carotid bruits Neck Narrative: Trachea midline, no thyroid enlargement Resp normal respiratory effort, no retractions, no use of accessory muscles and No clear to auscultation bilaterally Resp Narrative: Diffusely diminished with Velcro sounding scattered crackles Auscultation: crackles; Negative for rhonchi or wheezes Cardio regular rate, regular rhythm, S1 normal heart sound, S2 normal heart sound, no murmurs, no rub, no gallops and no clicks GI normal to inspection, nondistended, normoactive bowel sounds, soft to palpation and non-tender Extremity Extremity Narrative: 2-3+ bilateral lower extremity pitting edema, no cyanosis or clubbing Skin No no rashes or lesions noted, No no wounds, no jaundice, no petechiae and no mottling Skin Narrative: Scattered ecchymosis in various stages of healing noted on his trunk and arms/legs bilaterally Neuro oriented x3, moves all extremities and no focal motor deficits Speech: speech normal Psych affect normal Psych Narrative: Eye contact is good, patient is very pleasant and interacts appropriately Results Lab / Micro Data 02/16/24 14:36 02/16/24 14:36 Labs: Laboratory Results - last 24 hr 02/16/24 14:36: WBC 8.4, RBC 3.52 L, Hgb 12.3 L, Hct 36.8 L, MCV 104.5 H, MCH 34.9 H, MCHC 33.4, RDW Std Deviation 56.5 H, RDW Coeff of Jo 14.9 H, Plt Count 120 L, MPV 10.6, Immature Gran % (Auto) 0.700, Neut % (Auto) 85.9 H, Lymph % (Auto) 6.0 L, [place] % (Auto) 7.2, Eos % (Auto) 0.0, Baso % (Auto) 0.2, Absolute Neuts (auto) 7.2, Absolute Lymphs (auto) 0.50 L, Nucleated RBC % 0, Sodium 124 L , Potassium 4.2, Chloride 90 L, Carbon Dioxide 27.0, Anion Gap 7, BUN 21 H, C reatinine 1.50 H, Estim Creat Clear Calc 40.96, Est GFR (MDRD) Af Amer 57 L, Est GFR (MDRD) Non-Af 47 L, BUN/Creatinine Ratio 14.0, Glucose 185 H, Calcium 9.0, Total Creatine Kinase 121, Troponin I High Sens 18, B-Natriuretic Peptide 481.3 H Rhythm Strip Rhythm Strip: Sinus Rhythm Rate: 65 Ectopy: None Imaging Radiology Impression Chest X-Ray 02/16/24 16:00 IMPRESSION: Interstitial prominence. Electronically Signed: Russell Young DO at 16:53 EDT Reading Location ID and State: [facility] / [place] Tel [phone], Service support , Assessment & Plan Assessment/Plan (1) Pulmonary hypertension: (2) Syncope: (3) Falls: (4) Acute hyponatremia: (5) Elevated brain natriuretic peptide (BNP) level: (6) Lower extremity edema: PLAN: Plan Syncope -Highly suspect this is related to cerebral hypoxia as patient has been exerting himself without his oxygen on prior to suffering from his syncopal episodes from what he could relate to me -Monitor on telemetry -Orthostatic vitals are negative -Check echocardiogram -Check carotid and vertebral duplex per family request--> daughter is a nurse and requested these to be performed to check for vertebral insufficiency despite conversation with the emergency department that it was likely not this based on his symptoms -Cycle cardiac enzymes -Highly recommend patient wear oxygen with exertion and would recommend pulse ox at rest and with exertion prior to discharge -Baseline order at this time is for 2 L with exertion Bilateral lower extremity edema -Likely related to patient noncompliance with his Lasix and possibly worsening pulmonary hypertension related to his noncompliance with oxygen during exertion -Echocardiogram is pending -Recent echo done at [facility] in September 2023 that showed an EF of 60%, RV dilation with normal RV function and mild right atrial enlargement -Continue oxygen as needed to keep sats greater than 89% -Lasix 40 IV twice daily -Strict I's and O's -Fluid and sodium restriction -Daily weights History of pulmonary hypertension/interstitial lung disease -Follows as an outpatient with Dr. Siddiqui at [facility] and Dr. Ellis at [facility]-F -Lasix as above -Possible worsening of pulmonary hypertension due to noncompliance with oxygen -Continue home Tyvaso -Consult pulmonary medicine--> discussed with Dr. Siddiqui Acute on chronic hyponatremia -May be related to volume overload due to the above and lung disease -Sodium on admission was 124 baseline appears to run between 129 and 133 -Lasix is ordered -Check urine and serum osmolality -Check uric acid level -Check urine sodium -BMPs as ordered DM-2 -Hold home oral agents -continue subcu basal insulin 15 units daily -SSI ordered -Cardiac/carb controlled diet -Accu-Cheks as ordered CKD stage IIIb -Baseline serum creatinine appears to run between 1.6 and 1.8 -1.5 on presentation which is consistent with him not taking his Lasix at home -Continue to monitor with IV Lasix use Hypogonadism -Restart testosterone at discharge HTN/HPL -Continue home atenolol -Continue home lisinopril -patient is not on any statins or cholesterol medication Hypothyroidism Continue levothyroxine DVT prophylaxis -Lovenox as ordered CODE STATUS Full code as verified at the time of admission Charges/Coding Visit Charges Inpatient E&M: 46504 Init Hosp L3
--- NOTE | 2024-02-16 18:33 | ED.RN ---
PT HAS OWN AMANUEL AT BEDSIDE
[2024-02-16 18:42] LABS: Uric Acid 5.3 mg/dL (3.5-7.2)
--- NOTE | 2024-02-16 20:00 | NURSING ---
Pt stated to this RN that he has brought his nebulizer with him to the hospital with his med, Tyvaso, pre-added to the nebulizer, but does not have the medication bottle. Pt states he wanted to take the tyvaso tonight. This RN informed the pt that since we are unable to verify the medication, we are not able to administer the medication via his nebulizer for tonight. Pt was understanding and informed this RN that his will bring the medication bottle tomorrow morning. This RN informed both pharmacy and charge nurse.
[2024-02-16 20:02] LABS: Osmolality, Serum 274 mOsm/KG (280-301)
--- NOTE | 2024-02-16 20:19 | CDU_ITS ---
Reason For Study: Syncope Rt. Velocities/BP Lt. Velocities/BP Prox CCA 109.1/6.9 cm/sec. Prox CCA 114.6/9 cm/sec. Mid CCA 92.7/6.9 cm/sec. Mid CCA 117/7.7 cm/sec. Dist CCA 83.9/4.7 cm/sec. Dist CCA 104.7/5.3 cm/sec. Prox ICA 91.2/10.2 cm/sec. Prox ICA 70.4/7.7 cm/sec. Mid ICA 83.9/9 cm/sec. Mid ICA 81.4/13.9 cm/sec. Dist ICA 91.2/6.5 cm/sec. Dist ICA 104.7/11.5 cm/sec. Rt. ICA/CCA = 0.98. Lt. ICA/CCA = 0.89. Prox ECA 126.8 cm/sec. Prox ECA 132.1 cm/sec. Rt. Vert. 75.3/11.4 cm/sec. Lt. Vert. 28/3.1 cm/sec. Right Extracranial There is homogeneous, smooth atherosclerotic plaque noted in the right common carotid artery. There is heterogeneous, irregular atherosclerotic plaque noted in the right internal carotid artery. There is intimal thickening but no significant atherosclerotic plaque noted in the right external carotid artery. Antegrade flow is noted in the right vertebral artery. Left Extracranial There is intimal thickening but no significant atherosclerotic plaque noted in the left common carotid artery. There is homogeneous, smooth atherosclerotic plaque noted in the left internal carotid artery. There is intimal thickening but no significant atherosclerotic plaque noted in the left external carotid artery. Antegrade flow is noted in the left vertebral artery. Procedure Carotid Duplex 64176. This is a Carotid Duplex examination using B-mode, color flow and specral Doppler. Exam performed in department. VL/Carotid Duplex Ultrasound Interpretation Summary Mild (<50%) stenosis right extracranial internal carotid. Mild (<50%) stenosis left extracranial internal carotid. Patent and antegrade vertebrals bilaterally. Ordering Physician: Sandra Elizabeth Referring Physician: Lane Valentino Chi Performed By: Bhavna Liu RVT
[2024-02-16 20:51] LABS: Anion Gap 7 (5-15); BUN 20 mg/dL (7-18); BUN/Creat Ratio 14.7 RATIO (10-20); Chloride 95 mmol/L (98-107); Creatinine, Serum 1.36 mg/dL (0.70-1.30); EST Glomerular Filtration Rate 53 mL/min (>60); Est Glom Filt Rate - Afr Amer 64 mL/min (>60); Estimated Creatinine Clearance 45.17 ml/min; Glucose 113 mg/dL (74-106); Potassium 4.1 mmol/L (3.5-5.1); Sodium Level 130 mmol/L (136-145); Troponin-I HS 23 pg/mL (3.0-78.0)
[2024-02-16] MEDS: Acetaminophen 325 MG Tablet 650 MG PO (21:40)
[2024-02-16] MEDS: 0.9% Saline Lock 10 ML Syringe IV (21:43)
[2024-02-16 22:11] LABS: Troponin-I HS 22 pg/mL (3.0-78.0)
[2024-02-16 22:21] LABS: Bedside Glucose 84 mg/dL (74-106)
[2024-02-16 22:42] LABS: Urine Sodium 58 mmol/L (Not Establ.)
[2024-02-16 22:50] LABS: Osmolality, Urine 180 mOsm/KG
[2024-02-17] VITALS (9 sets, daily range): BP systolic 130–162; BP diastolic 54–82; PULSE 61–69; RESP 18; TEMP 36–36.5; O2SAT 2–100; BMI 25.7
[2024-02-17 03:06] LABS: Absolute Lymphocyte Count 0.82 X10^3/uL (0.83-4.51); Absolute Neutrophil Count 4.5 X10^3/uL (2.0-7.7); Basophil# 0.02 X10^3/uL; Basophil% 0.3 % (0-1); Eosinophil# 0.01 X10^3/uL; Eosinophils% 0.2 % (0-5); Hematocrit 34.2 % (40-54); Hemoglobin 11.7 g/dL (13.0-16.5); Lymphocyte # 0.82 X10^3/ul (0.83-4.51); Lymphocyte % 13.9 % (19-41); Mean Corp Hgb Conc 34.2 g/dL (32-36); Mean Corpuscular Volume 105.2 fL (80-94); Mean Platelet Vol. 10.4 fl (6.2-12.0); Monocyte# 0.52 X10^3/uL; Monocyte% 8.8 % (0-10); NRBC Flagged by Analyzer 0 % (0-5); Neutrophil # 4.49 X10^3/uL (2.7-7.7); Neutrophil % 76.3 % (47-70); Platelet Count 106 K/mm3 (150-450); RBC Distribution Width CV 14.9 % (11.6-14.6); RBC Distribution Width SD 56.9 fl (35.1-43.9); Red Blood Count 3.25 M/mm3 (4.6-6.2); White Blood Count 5.9 K/mm3 (4.4-11.0)
[2024-02-17 03:29] LABS: ALB/GLOB Ratio 0.8 RATIO (0.9-2.4); AST(SGOT) 32 U/L (15-37); Alanine Aminotransfer ALT/SGPT 18 U/L (16-61); Albumin, Serum 2.9 g/dL (3.2-5.0); Alkaline Phosphatase 134 U/L (45-117); Anion Gap 5 (5-15); BUN 18 mg/dL (7-18); BUN/Creat Ratio 12.9 RATIO (10-20); Calcium,Total 8.9 mg/dL (8.5-10.1); Chloride 95 mmol/L (98-107); EST Glomerular Filtration Rate 51 mL/min (>60); Est Glom Filt Rate - Afr Amer 62 mL/min (>60); Estimated Creatinine Clearance 43.88 ml/min; Globulin 3.7 g/dL (2.2-4.2); Glucose 104 mg/dL (74-106); Magnesium 1.9 mg/dL (1.6-2.6); Potassium 3.9 mmol/L (3.5-5.1); Protein, Total 6.6 g/dL (6.4-8.2); Sodium Level 131 mmol/L (136-145); Troponin-I HS 25 pg/mL (3.0-78.0)
[2024-02-17] MEDS: Levothyroxine 75 MCG Tablet PO (06:22)
[2024-02-17 06:55] LABS: Bedside Glucose 88 mg/dL (74-106)
[2024-02-17] MEDS: Acetaminophen 325 MG Tablet 650 MG PO ×2 (07:54→21:17)
[2024-02-17] MEDS: Aspirin E.C. 81 MG Tablet PO (07:54)
[2024-02-17] MEDS: Furosemide 40 MG/4 ML Vial IV ×2 (10:10→18:22)
[2024-02-17] MEDS: Lisinopril 10 MG Tablet PO (10:10)
[2024-02-17] MEDS: Atenolol 50 MG Tablet PO (10:10)
[2024-02-17] MEDS: Enoxaparin 40 MG/0.4 ML Syringe SC (10:10)
[2024-02-17] MEDS: 0.9% Saline Lock 10 ML Syringe IV ×2 (10:13→18:22)
--- NOTE | 2024-02-17 11:30 | CASEMGMT ---
RN BHASKAR Face to Face with patient for initial transition planning/care coordination assessment. RN CM introduced self and role at [facility]. Patient lying in bed, alert and oriented. Patient willing to participate in assessment and is able to answer all questions appropriately. Care providers, pharmacy, and demographics verified. Strata: 2 PCP: [facility] Specialists: Rhonda, pulmnologist [facility]; Chino Siddiqui slate splitter Preferred Pharmacy: [facility] Insurance: [facility] Prescription Benefit: yes Living Will/HPOA: yes, [place] Funk LNOK: Living Arrangements: Patient lives with in a split level home with 6-7 steps and railing to enter the home. Patient states he is independent at home. Transportation: , daughter DME/HHC: Patient has shower chair, raised toilet, cane, walker, grab bars, pulse ox, glucometer, and home oxygen through [facility] with portable at 2lpm. No previous HHC or SNF. Patient wishes to discharge home, will monitor for HHC. Patient states he has no further needs or concerns at this time. CM to follow for discharge planning needs that may arise. Disposition Plan: Patient to discharge home with family support and follow-up plans in place. Bhavna ADKINS, RN, CM
[2024-02-17] MEDS: Insulin Glargine-YFGN 100 UNIT/ML Pen 15 UNIT SC (11:50)
[2024-02-17] MEDS: Insulin Lispro 100 UNIT/ML INSULN.PEN SC ×2 (11:50→16:13)
[2024-02-17] MEDS: TREPROSTINIL 1.74 MG/2.9 ML INHALATION ×3 (11:54→20:04)
[2024-02-17 11:58] LABS: Ferritin 341 ng/mL (26-388); Iron 52 ug/dL (65-175); Iron Binding Capacity,Total 328 ug/dL (250-450); PERCENT IRON SATURATION 15.9 % (15.0-55.0)
[2024-02-17 12:03] LABS: Bedside Glucose 189 mg/dL (74-106)
--- NOTE | 2024-02-17 13:11 | PCM.PN.HOSP ---
Reason for Visit Reason for Visit: Diagnoses Hypo-osmolality and hyponatremia (02/16/24) Pulmonary hypertension, unspecified (02/16/24) Repeated falls (02/16/24) Syncope and collapse (02/16/24) Localized edema (02/16/24) Other specified abnormal findings of blood chemistry (02/16/24) Subjective Subjective Saw patient at bedside this morning, present. Patient was sitting up comfortably in bed, conversing normally, in no acute distress. He was breathing comfortably on room air at rest. Patient had his echo and carotid ultrasound studies done this morning. He had not been out of bed yet today. He denied any acute pain or discomfort. Had no other acute concerns this morning. Patient follows with [facility] for his pulmonary hypertension and they were made aware of his hospitalization here. Spoke with Dr. Urban over the phone this afternoon. He noted that with the syncopal episodes and concern for worsening pulmonary hypertension, it would be best for patient to transfer up to [facility] for further evaluation as he may need a right heart cath and specimen medication changes. Discussed this with patient and and they are agreeable to transfer. Transfer is currently in process. Objective Data Objective Data Vital Signs: Vital Signs Temp Pulse Resp BP Pulse Ox O2 Del Method O2 Flow Rate 97.1 F L 69 18 130/65 H 95 Room Air 78 02/17/24 10:08 02/17/24 10:08 02/17/24 10:08 02/17/24 10:08 02/17/24 12:06 02/17/24 12:06 02/17/24 11:18 Oxygen Flow Rate (L/min) [ 4 AMBULATING with Oxygen #3] Oxygen Flow Rate (L/min) [ 3 AMBULATING with Oxygen #2] Oxygen Flow Rate (L/min) [ 78 AMBULATING with Oxygen #1] Oxygen Flow Rate (L/min) 2 Oxygen Delivery Method Room Air Weight: 86 kg Body Mass Index (BMI) 25.7 Intake & Output: Intake and Output for Last 24 Hours 02/15/24 02/16/24 02/17/24 23:59 23:59 23:59 Intake Total 170 / 170 50 / 50 Output Total 450 / 450 Balance -280 / -280 50 / 50 Lab / Micro Data 02/17/24 02:40 02/17/24 02:40 Labs: Laboratory Results - last 24 hr 02/16/24 14:36: WBC 8.4, RBC 3.52 L, Hgb 12.3 L, Hct 36.8 L, MCV 104.5 H, MCH 34.9 H, MCHC 33.4, RDW Std Deviation 56.5 H, RDW Coeff of Jo 14.9 H, Plt Count 120 L, MPV 10.6, Immature Gran % (Auto) 0.700, Neut % (Auto) 85.9 H, Lymph % (Auto) 6.0 L, [place] % (Auto) 7.2, Eos % (Auto) 0.0, Baso % (Auto) 0.2, Absolute Neuts (auto) 7.2, Absolute Lymphs (auto) 0.50 L, Nucleated RBC % 0, Sodium 124 L, Potassium 4.2, Chloride 90 L, Carbon Dioxide 27.0, Anion Gap 7, BUN 21 H, Creatinine 1.50 H, Estim Creat Clear Calc 40.96, Est GFR (MDRD) Af Amer 57 L, Est GFR (MDRD) Non-Af 47 L, BUN/Creatinine Ratio 14.0, Glucose 185 H, Calcium 9.0, Total Creatine Kinase 121, Troponin I High Sens 18, B-Natriuretic Peptide 481.3 H 02/16/24 18:09: Serum Osmolality 274 L, Uric Acid 5.3 02/16/24 20:12: Sodium 130 L, Potassium 4.1, Chloride 95 L, Carbon Dioxide 28.0, Anion Gap 7, BUN 20 H, Creatinine 1.36 H, Estim Creat Clear Calc 45.17, Est GFR (MDRD) Af Amer 64, Est GFR (MDRD) Non-Af 53 L, BUN/Creatinine Ratio 14.7, Glucose 113 H, Calcium 9.0, Troponin I High Sens 23 02/16/24 21:38: POC Glucose 84 02/16/24 21:42: Troponin I High Sens 22 02/16/24 21:45: Urine Osmolality 180, Ur Random Sodium 58 02/17/24 02:40: WBC 5.9, RBC 3.25 L, Hgb 11.7 L, Hct 34.2 L, MCV 105.2 H, MCH 36.0 H, MCHC 34.2, RDW Std Deviation 56.9 H, RDW Coeff of Jo 14.9 H, Plt Count 106 L, MPV 10.4, Immature Gran % (Auto) 0.500, Neut % (Auto) 76.3 H, Lymph % (Auto) 13.9 L, [place] % (Auto) 8.8, Eos % (Auto) 0.2, Baso % (Auto) 0.3, Absolute Neuts (auto) 4.5, Absolute Lymphs (auto) 0.82 L, Nucleated RBC % 0, Sodium 131 L, Potassium 3.9, Chloride 95 L, Carbon Dioxide 31.0, Anion Gap 5, BUN 18, Creatinine 1.40 H, Estim Creat Clear Calc 43.88, Est GFR (MDRD) Af Amer 62, Est GFR (MDRD) Non-Af 51 L, BUN/Creatinine Ratio 12.9, Glucose 104, Calcium 8.9, Phosphorus 3.0, Magnesium 1.9, Iron 52 L, TIBC 328, Iron Saturation 15.9, Ferritin 341, Total Bilirubin 1.20 H, AST 32, ALT 18, Alkaline Phosphatase 134 H, Troponin I High Sens 25, Total Protein 6.6, Albumin 2.9 L, Globulin 3.7, Albumin/Globulin Ratio 0.8 L, Folate 8.90 02/17/24 06:21: POC Glucose 88 02/17/24 11:44: POC Glucose 189 H Radiography Diagnostic Testing: Radiology Impression Chest X-Ray 02/16/24 16:00 IMPRESSION: Interstitial prominence. Electronically Signed: Russell Young DO at 16:53 EDT Reading Location ID and State: [address] [place] [address] Tel [phone], Service support , Rhythm Strip Rhythm Strip: Sinus Rhythm Rate: 65 Ectopy: None Physical Exam Const alert, oriented x3, no apparent distress and average body habitus Constitutional Narrative: Pleasant elderly male, sitting up comfortably in bed, conversing normally, in no acute distress. General Appearance: cooperative and comfortable HEENT normocephalic, head/scalp atraumatic, hearing grossly normal bilaterally, nasal mucous membranes and turbinates normal and moist oral mucous membranes Eyes PERRL, EOMs intact bilaterally and conjunctivae normal Neck full ROM Chest inspection of chest normal Resp normal respiratory effort and no use of accessory muscles Resp Narrative: Breathing comfortably on room air at rest. Diminished breath sounds in bilateral lung bases with mild crackles noted. No wheezing noted. Cardio regular rate, regular rhythm, no murmurs and peripheral pulses 2+ throughout GI normal to inspection, nondistended, normoactive bowel sounds, soft to palpation, non-tender and non-distended Back/Spine normal ROM Extremity normal to inspection, full ROM and no pedal edema Skin no rashes or lesions noted Neuro moves all extremities and no focal motor deficits Speech: speech normal Psych mental status grossly normal Assessment & Plan Assessment/Plan (1) Syncope: (2) Lower extremity edema: (3) Elevated brain natriuretic peptide (BNP) level: (4) Acute hyponatremia: (5) Pulmonary hypertension: PLAN: Plan Patient is an 83-year-old male who presented [facility] ED on 02/16/2024 with syncopal episodes at home. 1. Syncopal episodes, concern for worsening of known interstitial lung disease with pulmonary hypertension and chronic respiratory failure, bilateral lower extremity edema ? Presented after multiple syncopal episodes at home over the past several days. Currently suspect that these episodes were due to significant hypoxia on exertion with patient not wearing his home oxygen. Also suspect some worsening of his known pulmonary hypertension with mild volume overload due to nonadherence to home oxygen. Chest x-ray showed interstitial prominence, was otherwise unremarkable. TTE and carotid ultrasound completed, reads pending. On 02/16, patient had significant exertional dyspnea with hypoxia to the 70s on room air with only walking about 30 feet with assistance. Patient follows with [facility] for pulmonary hypertension; discussed with Dr. Urban over the phone on 02/16 and will transfer patient to [facility] for further management. Transfer is in process. Treated with IV Lasix 40 mg twice daily since admission, will de-escalate to p.o. Lasix 40 mg daily on 02/17. Continue home treprostinil. 2. Acute on chronic hyponatremia, improved ?Sodium 124 on admit, suspected due to volume overload and recent poor p.o. intake. Improved back to baseline around 130 with IV lasix. No need to monitor further sodium values. 3. Mild macrocytic anemia ? Hemoglobin 12.3 on admit, down to 11.7 on hospital day 2. Previous baseline appears to be around 14-15. MCV 105. No signs of blood loss. Iron studies with ferritin, B12 and folate ordered. Continue to monitor daily CBC. Chronic medical conditions: ? Type 2 diabetes mellitus: Treating with Lantus 15 units daily with sliding scale insulin with meals while inpatient. ? CKD stage III: Creatinine stable at baseline around 1.4-1.6 since admission. ? Hypogonadism: Resume home testosterone on discharge. ? Hypertension: Continue home atenolol and lisinopril. ? Hypothyroidism: Continue home Synthroid. DVT prophylaxis: Lovenox CODE STATUS: Full code, verified Expected disposition: Transfer to [facility] Total clinical time spent by myself addressing the patient's medical issues, reviewing all the data, and collaborating with patient's care team: 50 minutes. Charges/Coding Visit Charges Inpatient E&M: 52774 Subs Hosp L3
[2024-02-17 13:34] LABS: Vitamin B12 625 pg/mL (211-911)
--- NOTE | 2024-02-17 14:28 | CASEMGMT ---
Social Work SW spoke w/pt and , pt confirms is POA. They are aware POA documents are not on file, are likely at Dr. Valentino's office if needed. KATHY Brown
--- NOTE | 2024-02-17 14:29 | CASEMGMT ---
Social Work SW spoke w/pt and in room in regard to LW/POA. confirms is POA. Pt then went on to speak about getting transferred to [facility] today, his angular developer is there. Pt stating is upset about getting transferred, is worried about his being home alone and falling. attempted to comfort pt that she has family that will check on him. SW also offered supportive listening to pt and . SW remains available for support to pt and . KATHY Brown
[2024-02-17 16:59] LABS: Bedside Glucose 191 mg/dL (74-106)
[2024-02-17 21:36] LABS: Bedside Glucose 77 mg/dL (74-106)
--- NOTE | 2024-02-18 00:13 | NURSING ---
Report given to Alex MURCIA in [facility] CVICU unit @[id number]. Pt was picked up by physician's ambulance @ 0008 to be transport to [facility]. Pt VS stable.
--- NOTE | 2024-03-18 07:28 | DS.PCM_ITS ---
Providers Date of Admission: 02/16/24 Date of Discharge: 03/19/24 Primary Care Physician: Dr. Lane Valentino MD Consultations 02/16/24 19:39 Consult: Soft Hat Binder / Pulmonary Medicine Routine Consulting Provider: Intensivists/Pulmonary Med Reason for Consult: Pulm HTN/ILD EMERGENT Consult: No MD Notified: Yes Date Notified: 02/16/24 Time Notified: 18:10 Method of Notification: Verbal Reason For Visit: SYNCOPE Diagnosis Discharge Diagnosis (1) Syncope: Status: Acute Code(s): R55 - Syncope and collapse (2) Lower extremity edema: Status: Acute Code(s): R60.0 - Localized edema (3) Elevated brain natriuretic peptide (BNP) level: Status: Acute Code(s): R79.89 - Other specified abnormal findings of blood chemistry (4) Acute hyponatremia: Status: Acute Code(s): E87.1 - Hypo-osmolality and hyponatremia (5) Pulmonary hypertension: Status: Acute Code(s): I27.20 - Pulmonary hypertension, unspecified Medications at Discharge Home Medications pioglitazone 45 mg tablet 45 mg PO DAILY diabetes 90 days #90 tabs 08/31/18 sitagliptin phosphate 50 mg tablet (Januvia) 50 mg PO DAILY diabetes 08/31/18 testosterone cypionate 200 mg/mL intramuscular oil 100 mg IM QWEEK hormone 28 days #2 mL 08/31/18 aspirin 81 mg tablet,delayed release (Adult Aspirin Regimen) 81 mg PO DAILY [facility] 09/02/18 cholecalciferol (vitamin D3) 25 mcg (1,000 unit) tablet 1,000 unit PO DAILY vitamin 08/15/20 insulin detemir U-100 100 unit/mL (3 mL) subcutaneous pen (Levemir FlexTouch U- 100 Insulin) 15 unit subcut DAILY diabetes 11/26/22 levothyroxine 75 mcg tablet 75 mcg PO DAILY thyroid 11/26/22 lisinopril 20 mg tablet 10 mg (1/2 x 20 mg) PO DAILY blood pressure #45 tabs 02/28/23 atenolol 50 mg tablet See Rx Instructions .Route .COMPLEX blood pressure #90 tabs 05/28/23 furosemide 20 mg tablet (Lasix) 20 mg PO DAILY diuretic 11/28/23 treprostinil 1.74 mg/2.9 mL (0.6 mg/mL) solution for nebulization (Tyvaso) 10 inh inhalation Q4H 02/16/24 Hospital Course Operations None Procedures EKG, Transthoracic echo and - (carotid duplex ultrasound) Summary of Care Provided Minutes Spent on Discharge: 35 Hospital Course: Patient is an 83-year-old male who presented [facility] ED on 02/16/2024 with syncopal episodes at home. Hospital course as noted below. Patient transferred to [facility] In stable condition on 02/16. 1. Syncopal episodes, concern for worsening of known interstitial lung disease with pulmonary hypertension and chronic respiratory failure, bilateral lower extremity edema ? Presented after multiple syncopal episodes at home over the past several days. Suspected that these episodes were due to significant hypoxia on exertion with patient not wearing his home oxygen. Also suspected some worsening of his known pulmonary hypertension given mild volume overload on admission. Chest x-ray showed interstitial prominence, was otherwise unremarkable. TTE and carotid ultrasound completed, reads pending on discharge. Patient follows with [facility] for pulmonary hypertension; discussed over the phone with them and they accepted the patient for transfer for further management. Treated with IV Lasix 40 mg twice daily while hospitalized here. Home treprostinil continued here. Transferred on 02/16 in stable condition. 2. Acute on chronic hyponatremia, improved ? Sodium 124 on admit, suspected due to volume overload and recent poor p.o. intake. Improved back to baseline around 130 with IV lasix. 3. Mild macrocytic anemia ? Hemoglobin 12.3 on admit, down to 11.7 on hospital day 2. Previous baseline appears to be around 14-15. MCV 105. No signs of blood loss. Iron studies with ferritin, B12 and folate ordered, pending on discharge. Chronic medical conditions: ? Type 2 diabetes mellitus: Treated with Lantus 15 units daily with sliding scale insulin with meals while inpatient. ? CKD stage III: Creatinine stable at baseline around 1.4-1.6 during admission. ? Hypogonadism: Resume home testosterone on discharge. ? Hypertension: Continue home atenolol and lisinopril. ? Hypothyroidism: Continue home Synthroid. Total clinical time spent by myself addressing the patient's medical issues, reviewing all the data, and collaborating with patient's care team: 35 minutes. Physical Exam Const alert, oriented x3, no apparent distress and average body habitus Constitutional Narrative: Pleasant elderly male, sitting up comfortably in bed, conversing normally, in no acute distress. General Appearance: cooperative and comfortable HEENT normocephalic, head/scalp atraumatic, hearing grossly normal bilaterally, nasal mucous membranes and turbinates normal and moist oral mucous membranes Eyes PERRL, EOMs intact bilaterally and conjunctivae normal Neck full ROM Chest inspection of chest normal Resp normal respiratory effort and no use of accessory muscles Resp Narrative: Breathing comfortably on room air at rest. Diminished breath sounds in bilateral lung bases with mild crackles noted. No wheezing noted. Cardio regular rate, regular rhythm, no murmurs and peripheral pulses 2+ throughout GI normal to inspection, nondistended, normoactive bowel sounds, soft to palpation, non-tender and non-distended Back/Spine normal ROM Extremity normal to inspection, full ROM and no pedal edema Skin no rashes or lesions noted Neuro moves all extremities and no focal motor deficits Speech: speech normal Psych mental status grossly normal Weight / BMI Weight Weight: 86 kg Body Mass Index (BMI) 25.7 ABG / Lab / Microbiology Data 02/17/24 02:40 02/17/24 02:40 Meaningful Use Info Meaningful Use Meaningful Use Diagnoses (Choose all that apply): None applicable Ischemic Stroke Statin Dosing Therapy Reference: STATIN DOSE THERAPY REFERENCE: * Patients > 75 years receive moderate or high dose statin therapy. * Patients 75 years or YOUNGER should receive HIGH intensity statin dose unless contraindicated. You will be required to document reason for non-treatment if statin daily dose does not meet guidelines. HIGH DOSE STATIN THERAPY DAILY Atorvastatin > than or = to 40 mg Rosuvastatin > than or = to 20 mg Amlodipine + Atorvastatin > than or = to 2.5/40 mg Ezetimibe + Simvastatin 10/80 mg Simvastatin 80mg Discharge Plan Admission Admit Date/Time: 02/16/24 18:00 Primary Reason for Your Visit: Syncopal episodes Attending Provider: Nghia Monae Primary Care Provider: Lane Valentino Chi Consulting Providers: Sandra Elizabeth Discharge Orders/Prescriptions Prescriptions: Continued aspirin [Adult Aspirin Regimen] 81 mg tablet,delayed release (DR/EC) 81 mg PO DAILY pioglitazone 45 mg tablet 45 mg PO DAILY 90 Days Qty: 90 Januvia 50 mg tablet 50 mg PO DAILY testosterone cypionate 200 mg/mL oil 100 mg IM QWEEK 28 Days Qty: 2 Levemir FlexTouch U100 Insulin 100 unit/mL (3 mL) insulin pen 15 unit SC DAILY cholecalciferol (vitamin D3) 25 mcg (1,000 unit) tablet 1,000 unit PO DAILY Patient Comments: TAKE 1 TABLET BY MOUTH ONCE DAILY REPLACE (VITAMIN D2) levothyroxine 75 mcg tablet 75 mcg PO DAILY furosemide [Lasix] 20 mg tablet 20 mg PO DAILY Tyvaso 1.74 mg/2.9 mL (0.6 mg/mL) solution for nebulization 10 inh inhalation Q4H Rx Instructions: administer 4 doses per day while awake lisinopril 20 mg tablet 10 mg PO DAILY Qty: 45 3RF atenolol 50 mg tablet See Rx Instructions .ROUTE .COMPLEX Qty: 90 3RF Dose Instruction: Take 1 tablet by mouth once daily Rx Instructions: Take 1 tablet by mouth once daily Referrals / Follow Up: Lane Valentino Chi, MD [Primary Care Provider] - Disposition Disposition (needs filled in before D/C Order can be placed): Acute Care Hospital Charges/Coding Visit Charges Inpatient E&M: 47740 Disch Hosp >30min
== END 2024-02-18 00:20 | disposition short-term general hospital (02) | DRG 197 ==
LOC: ED 17:43 → PCU 18:01
PROVIDERS: Admitting Provider Internal Medicine; Emergency Provider Emergency Medicine; PCP Family Medicine Geriatric Medicine; Visit Provider Hospitalist
DX: J84.10 Pulmonary fibrosis, unspecified (principal); E87.1 Hypo-osmolality and hyponatremia; J96.11 Chronic respiratory failure with hypoxia; I27.20 Pulmonary hypertension, unspecified; E11.22 Type 2 diabetes mellitus with diabetic chronic kidney disease; D53.9 Nutritional anemia, unspecified; N18.32 Chronic kidney disease, stage 3b; E03.9 Hypothyroidism, unspecified; I12.9 Hypertensive chronic kidney disease with stage 1 through stage 4 chronic kidney disease, or unspecified chronic kidney disease; E78.5 Hyperlipidemia, unspecified; Z79.4 Long term (current) use of insulin; M25.511 Pain in right shoulder; S50.11XA Contusion of right forearm, initial encounter; S20.211A Contusion of right front wall of thorax, initial encounter; W18.30XA Fall on same level, unspecified, initial encounter; T41.5X6A Underdosing of therapeutic gases, initial encounter; R55 Syncope and collapse; T50.1X6A Underdosing of loop [high-ceiling] diuretics, initial encounter; Z91.148 Patient's other noncompliance with medication regimen for other reason; Y92.59 Other trade areas as the place of occurrence of the external cause; R60.0 Localized edema; Z79.82 Long term (current) use of aspirin; Z79.890 Hormone replacement therapy; Z79.84 Long term (current) use of oral hypoglycemic drugs; Z79.899 Other long term (current) drug therapy
CPT/HCPCS: 36415; 71046; 80048; 80053; 82550; 82607; 82728; 82746; 82962; 83540; 83550; 83735; 83880; 83930; 83935; 84100; 84300; 84484; 84550; 85025; 93005; 93306; 93880; 97162; 97166; 97802; 99252; 99285; Q9957; A4216; C8929; G0463; J1940

== ENCOUNTER → 2024-03-03 | Outpatient (CLI) | payer MEDICARE, SELFPAY ==
[2022-11-29 13:03] VITALS: BMI 28.4
[2024-03-03 13:26] LABS: Anion Gap 4 (5-15); BUN 36 mg/dL (7-18); BUN/Creat Ratio 30.5 RATIO (10-20); Calcium,Total 9.7 mg/dL (8.5-10.1); Chloride 100 mmol/L (98-107); Creatinine, Serum 1.18 mg/dL (0.70-1.30); EST Glomerular Filtration Rate 63 mL/min (>60); Est Glom Filt Rate - Afr Amer 76 mL/min (>60); Glucose 155 mg/dL (74-106); Potassium 4.7 mmol/L (3.5-5.1); Sodium Level 134 mmol/L (136-145)
== END | disposition home or self-care (01) ==
LOC: POLAB3 12:25
PROVIDERS: PCP Family Medicine Geriatric Medicine; Visit Provider Family Medicine Geriatric Medicine
DX: I10 Essential (primary) hypertension (principal)
CPT/HCPCS: 36415; 80048

== ENCOUNTER → 2024-03-15 | Outpatient (CLI) | payer MEDICARE, SELFPAY ==
[2022-11-29 13:03] VITALS: BMI 28.4
[2024-03-15 12:53] LABS: Protein:Creat Ratio 672 mg/g CRE (0-200)
== END | disposition home or self-care (01) ==
LOC: LAB 11:18
PROVIDERS: PCP Family Medicine Geriatric Medicine; Referring Provider Internal Medicine Nephrology; Visit Provider Internal Medicine Nephrology
DX: R80.9 Proteinuria, unspecified (principal)
CPT/HCPCS: 82570; 84156

== ENCOUNTER → 2024-04-30 | Outpatient (CLI) | payer MEDICARE, SELFPAY ==
[2022-11-29 13:03] VITALS: BMI 28.4
[2024-04-30 17:34] LABS: Anion Gap 6 (5-15); BUN 32 mg/dL (7-18); BUN/Creat Ratio 24.2 RATIO (10-20); Calcium,Total 9.5 mg/dL (8.5-10.1); Chloride 96 mmol/L (98-107); Creatinine, Serum 1.32 mg/dL (0.70-1.30); EST Glomerular Filtration Rate 55 mL/min (>60); Est Glom Filt Rate - Afr Amer 67 mL/min (>60); Glucose 147 mg/dL (74-106); Potassium 4.1 mmol/L (3.5-5.1); Sodium Level 131 mmol/L (136-145)
== END | disposition home or self-care (01) ==
LOC: LAB 16:00
PROVIDERS: PCP Family Medicine Geriatric Medicine; Referring Provider Internal Medicine Nephrology; Visit Provider Internal Medicine Nephrology
DX: E87.1 Hypo-osmolality and hyponatremia (principal)
CPT/HCPCS: 36415; 80048

== ENCOUNTER → 2024-05-26 | Outpatient (CLI) | payer MEDICARE, SELFPAY ==
[2022-11-29 13:03] VITALS: BMI 28.4
[2024-05-26 09:11] LABS: Absolute Lymphocyte Count 0.94 X10^3/uL (0.83-4.51); Absolute Neutrophil Count 5.4 X10^3/uL (2.0-7.7); Basophil# 0.05 X10^3/uL; Basophil% 0.7 % (0-1); Hematocrit 40.3 % (40-54); Hemoglobin 13.6 g/dL (13.0-16.5); Lymphocyte # 0.94 X10^3/ul (0.83-4.51); Lymphocyte % 13.6 % (19-41); Mean Corp Hgb Conc 33.7 g/dL (32-36); Mean Corpuscular Hgb 35.5 pg (27.0-32.0); Mean Corpuscular Volume 105.2 fL (80-94); Mean Platelet Vol. 10.3 fl (6.2-12.0); Monocyte# 0.49 X10^3/uL; Monocyte% 7.1 % (0-10); NRBC Flagged by Analyzer 0 % (0-5); Neutrophil # 5.39 X10^3/uL (2.7-7.7); Neutrophil % 78.3 % (47-70); Platelet Count 140 K/mm3 (150-450); RBC Distribution Width CV 12.8 % (11.6-14.6); RBC Distribution Width SD 49.5 fl (35.1-43.9); Red Blood Count 3.83 M/mm3 (4.6-6.2); White Blood Count 6.9 K/mm3 (4.4-11.0)
[2024-05-26 10:07] LABS: ALB/GLOB Ratio 0.8 RATIO (0.9-2.4); AST(SGOT) 42 U/L (15-37); Alanine Aminotransfer ALT/SGPT 36 U/L (16-61); Albumin, Serum 3.4 g/dL (3.2-5.0); Alkaline Phosphatase 151 U/L (45-117); Anion Gap 7 (5-15); BUN 30 mg/dL (7-18); Calcium,Total 9.3 mg/dL (8.5-10.1); Chloride 98 mmol/L (98-107); EST Glomerular Filtration Rate 47 mL/min (>60); Est Glom Filt Rate - Afr Amer 57 mL/min (>60); Globulin 4.2 g/dL (2.2-4.2); Glucose 182 mg/dL (74-106); Protein, Total 7.6 g/dL (6.4-8.2); Sodium Level 134 mmol/L (136-145)
[2024-05-26 10:39] LABS: Vitamin D,25 Hydroxy 40.5 ng/mL
== END | disposition home or self-care (01) ==
PROVIDERS: PCP Family Medicine Geriatric Medicine; Visit Provider Family Medicine Geriatric Medicine
DX: E11.65 Type 2 diabetes mellitus with hyperglycemia (principal); I10 Essential (primary) hypertension; E55.9 Vitamin D deficiency, unspecified
CPT/HCPCS: 36415; 80053; 82306; 84443; 85025

== ENCOUNTER → 2024-06-14 | Outpatient (CLI) | payer MEDICARE, SELFPAY ==
[2022-11-29 13:03] VITALS: BMI 28.4
[2024-06-14 13:19] LABS: Albumin, Serum 3.4 g/dL (3.2-5.0); BUN 25 mg/dL (7-18); BUN/Creat Ratio 17.6 RATIO (10-20); Calcium,Total 9.5 mg/dL (8.5-10.1); Chloride 100 mmol/L (98-107); Creatinine, Serum 1.42 mg/dL (0.70-1.30); EST Glomerular Filtration Rate 51 mL/min (>60); Est Glom Filt Rate - Afr Amer 61 mL/min (>60); Glucose 175 mg/dL (74-106); Potassium 4.3 mmol/L (3.5-5.1); Sodium Level 137 mmol/L (136-145)
== END | disposition home or self-care (01) ==
LOC: POLAB3 12:04
PROVIDERS: PCP Family Medicine Geriatric Medicine; Visit Provider Internal Medicine Nephrology
DX: N18.31 Chronic kidney disease, stage 3a (principal)
CPT/HCPCS: 36415; 80069

== ENCOUNTER → 2024-09-28 | Outpatient (CLI) | payer MEDICARE, SELFPAY ==
[2022-11-29 13:03] VITALS: BMI 28.4
[2024-09-28 11:36] LABS: Anion Gap 12 (5-15); BUN 28 mg/dL (4-19); BUN/Creat Ratio 17.9 RATIO (10-20); Calcium,Total 9.5 mg/dL (7.6-11.0); Chloride 95 mmol/L (98-108); Creatinine, Serum 1.56 mg/dL (0.70-1.20); EST Glomerular Filtration Rate 44 (>60); Glucose 130 mg/dL (70-99); Potassium 4.4 mmol/L (3.3-5.1); Sodium Level 133 mmol/L (133-145)
== END | disposition home or self-care (01) ==
LOC: LAB 09:19
PROVIDERS: PCP Family Medicine Geriatric Medicine; Referring Provider Internal Medicine Nephrology; Visit Provider Internal Medicine Nephrology
DX: E22.2 Syndrome of inappropriate secretion of antidiuretic hormone (principal)
CPT/HCPCS: 36415; 80048